=== PATIENT | male | born 1950 | race Caucasian/White ===

== ENCOUNTER → 2019-04-24 09:33 | Outpatient (CLI) | payer MEDICARE, SELFPAY ==
--- NOTE | 2019-04-24 | DI.MRI.S_ITS ---
PROCEDURE: MR HEAD/BRAIN WO/W CON INDICATIONS: POSITIONAL HEADACHES TECHNIQUE: Noncontrast axial T1 spin echo, axial T2 fast spin echo, sagittal and axial FLAIR, coronal T2 fast spin echo, axial gradient echo, axial diffusion and ADC through the brain. After the administration of contrast, axial and coronal 3D VIBE or T1 spin echo with fat saturation through the brain. COMPARISON: None. FINDINGS: Image quality: Mildly degraded by necessity to utilize the body coil rather than head coil for MR brain imaging due to rigidity of the neck. The study is diagnostic. CSF Spaces: Basal cisterns are patent. No extra-axial fluid collections. Ventricles are normal in size and shape. Brain: No midline shift. No intracranial bleeds or masses. No abnormal intracranial enhancement. The brainstem appears normal. Diffusion-weighted images demonstrate no acute ischemic insults. No chronic ischemic insults. Normal intravascular flow voids are present. Skull and face: Calvarial marrow is normal in signal. Orbits appear normal. Sinuses: Sinuses and mastoids appear clear except for mild chronic appearing mucosal thickening involving the right maxillary sinus, without air fluid level.. IMPRESSION: Mild microvascular atherosclerotic change in the deep white matter and hemispheric. No evidence of intracranial hemorrhage or mass, or mass effect. Note is made of mild asymmetric right maxillary sinus mucosal inflammation, without associated air-fluid level. This is in appearance indicative of mild chronic sinusitis. Dictated by: Viraj Thomas M.D. on 04/24/2019 at 11:24 Approved by: Viraj Thomas M.D. on 04/24/2019 at 11:27
== END ==
PROVIDERS: PCP Nurse Practitioner Family; Visit Provider Psychiatry & Neurology Neurology
DX: R51 Headache (principal); J32.0 Chronic maxillary sinusitis
CPT/HCPCS: 70553

== ENCOUNTER → 2019-07-09 09:17 | Outpatient (CLI) | payer MEDICARE, SELFPAY ==
[2019-07-09 09:44] LABS: Add Manual Diff / Slide Review NO; Basophils Absolute Auto 0 /uL (0-100); Basophils Percent Auto 0.6 % (0-2); Eosinophils Absolute Auto 200 /uL (0-450); Eosinophils Percent Auto 5.5 % (2-4); Hematocrit 43.5 % (41-53); Hemoglobin 15.2 g/dL (13.5-17.5); Lymphocytes Absolute Auto 1000 /uL (1100-4500); Lymphocytes Percent Auto 23.1 % (25-40); Mean Corpuscular HGB Conc 34.8 % (30-36); Mean Corpuscular Hemoglobin 33.4 PG (26-34); Mean Corpuscular Volume 95.8 fL (80-100); Monocytes Absolute Auto 600 /uL (0-900); Monocytes Percent Auto 13.6 % (3-14); Neutrophils Absolute Auto 2500 /uL (1500-7000); Neutrophils Percent Auto 57.2 % (50-75); Platelet Count 203 X10^3/uL (150-400); Red Blood Cell Count 4.54 X10^6/uL (4.5-5.9); Red Cell Distribution Width 13.9 % (11.6-14.8); White Blood Cell Count 4.4 X10^3/uL (4.5-11.0)
[2019-07-09 10:06] LABS: Alanine Aminotransferase 27 IU/L (21-72); Albumin Globulin Ratio 1.4 (1.0-2.8); Alkaline Phosphatase 75 U/L (38-126); Aspartate Aminotransferase 33 IU/L (17-59); BUN Creatinine Ratio 21.1 (6-22); Blood Urea Nitrogen 19 mg/dL (9-20); Calcium 9.9 mg/dL (8.4-10.2); Carbon Dioxide 28 mmol/L (22-32); Chloride 103 mmol/L (98-107); Estimated Glomerular Filt Rate > 60.0 mL/min (>60); Globulin 2.8 g/dL (1.7-4.1); Glucose 115 mg/dL (80-110); HEMOLYSIS 22 (0-50); Potassium 4.3 mmol/L (3.4-5.1); Sodium 138 mmol/L (137-145); Total Protein 6.8 g/dL (6.3-8.2)
[2019-07-09 10:36] LABS: Prostate Specific Antigen 3.06 ng/mL (0.10-4.00)
[2019-07-09 10:38] LABS: Testosterone 17.2 ng/dL (71.8-623)
== END ==
PROVIDERS: PCP Nurse Practitioner Family
DX: C61 Malignant neoplasm of prostate (principal)
CPT/HCPCS: 36415; 80053; 84153; 84403; 85025

== ENCOUNTER → 2020-02-04 11:02 | Outpatient (CLI) | payer MEDICARE, SELFPAY ==
[2020-02-04 11:29] LABS: Add Manual Diff / Slide Review NO; Basophils Absolute Auto 0 /uL (0-100); Basophils Percent Auto 0.6 % (0-2); Eosinophils Absolute Auto 300 /uL (0-450); Hematocrit 43.6 % (41-53); Hemoglobin 14.8 g/dL (13.5-17.5); Lymphocytes Absolute Auto 1200 /uL (1100-4500); Mean Corpuscular HGB Conc 33.9 % (30-36); Mean Corpuscular Hemoglobin 32.4 PG (26-34); Mean Corpuscular Volume 95.6 fL (80-100); Monocytes Absolute Auto 900 /uL (0-900); Monocytes Percent Auto 14.4 % (3-14); Neutrophils Absolute Auto 3600 /uL (1500-7000); Platelet Count 237 X10^3/uL (150-400); Red Blood Cell Count 4.56 X10^6/uL (4.5-5.9); Red Cell Distribution Width 13.7 % (11.6-14.8); White Blood Cell Count 5.9 X10^3/uL (4.5-11.0)
[2020-02-04 11:46] LABS: Alanine Aminotransferase 14 IU/L (<50); Albumin 4.1 g/dL (3.5-5.0); Albumin Globulin Ratio 1.2 (1.0-2.8); Alkaline Phosphatase 117 U/L (38-126); Aspartate Aminotransferase 23 IU/L (17-59); Bilirubin Total 0.8 mg/dL (0.2-1.3); Blood Urea Nitrogen 23 mg/dL (9-20); Carbon Dioxide 27 mmol/L (22-32); Chloride 105 mmol/L (98-107); Estimated Glomerular Filt Rate > 60.0 mL/min (>60); Globulin 3.5 g/dL (1.7-4.1); Glucose 107 mg/dL (80-110); HEMOLYSIS < 15 (0-50); Potassium 4.2 mmol/L (3.4-5.1); Sodium 137 mmol/L (137-145); Total Protein 7.6 g/dL (6.3-8.2)
[2020-02-04 12:17] LABS: Prostate Specific Antigen 13.7 ng/mL (0.10-4.00)
[2020-02-04 12:20] LABS: Testosterone 15.9 ng/dL (71.8-623)
== END ==
PROVIDERS: PCP Nurse Practitioner Family; Referring Provider Internal Medicine Hematology & Oncology; Visit Provider Internal Medicine Hematology & Oncology
DX: C61 Malignant neoplasm of prostate (principal)
CPT/HCPCS: 36415; 80053; 84153; 84403; 85025

== ENCOUNTER → 2020-02-08 10:02 | Outpatient (CLI) | payer MEDICARE, SELFPAY ==
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
== END ==
PROVIDERS: PCP Nurse Practitioner Family; Referring Provider Internal Medicine Hematology & Oncology; Visit Provider Internal Medicine Hematology & Oncology
DX: C61 Malignant neoplasm of prostate (principal); C79.51 Secondary malignant neoplasm of bone
CPT/HCPCS: 78306; A9503

== ENCOUNTER → 2020-02-22 11:56 | Outpatient (CLI) | payer MEDICARE, SELFPAY ==
--- NOTE | 2020-02-22 | DI.MRI.S_ITS ---
PROCEDURE: MR CERVICAL SPINE WO/W CON INDICATIONS: Malignant neoplasm of prostate TECHNIQUE: Noncontrast sagittal T1 spin echo and T2 fast spin echo, sagittal STIR, foraminal oblique sagittal T2 fast spin echo, axial gradient echo or T2 fast spin echo through the cervical spine. After the administration of contrast, axial and sagittal T1 spin echo with fat saturation through the cervical spine. COMPARISON: [facility], MR, MR HEAD/BRAIN WO/W CON, 04/24/2019, 9:56. [facility] bone scan torso . FINDINGS: Image quality: This study is limited by the patient's inability to use the standard neck coil. This examination is further limited by involuntary motion artifact. Alignment and curvature: There is normal bony alignment. Marrow: Focal abnormal signal can be seen within the T2 vertebral body, with increased T2-weighted and T1 weighted signal, yet with no increased STIR signal. There is with increased enhancement seen at this level. Spinal cord: Visualized spinal cord has normal size and signal. No cerebellar tonsillar herniation. No abnormal intramedullary enhancement. Paraspinous soft tissues: No paravertebral masses or suspicious enhancement. C2-3: The disc height is well-preserved. Loss of disc signal is seen at this level. A mild degree of generalized disc osteophyte complex is seen. Moderate facet joint hypertrophy is seen. There is moderate left-sided and mild right-sided neural foraminal narrowing seen. No significant central canal narrowing is seen. C3-4: The disc height is well-preserved. Loss of disc signal is seen at this level. Moderate disc osteophyte complex is seen, which is eccentric to the right. There is moderate right-sided and moderate to severe left-sided facet hypertrophy seen. Moderate to severe bilateral neural foraminal narrowing is seen at this level. Mild central canal narrowing is seen. C4-5: Mild to moderate loss of disc height and disc signal can be seen. Moderate disc osteophyte complex is seen, with a central disc osteophyte protrusion. There is moderate right-sided and moderate to severe left-sided facet hypertrophy seen. There is moderate to severe bilateral neural foraminal narrowing seen at this level. Mild to moderate central canal narrowing is seen. C5-6: Mild to moderate loss of disc height and disc signal can be seen. Moderate disc osteophyte complex is seen, which is eccentric to the right. Moderate to severe bilateral neural foraminal narrowing is seen. Mild to moderate central canal narrowing is seen. C6-7: Moderate loss of disc height is seen. Loss of disc signal is seen. Moderate disc osteophyte complex is seen, which is eccentric to the right. There is moderate right-sided and mild to moderate left-sided facet hypertrophy seen. There is moderate to severe bilateral neural foraminal narrowing seen, right worse than left. Mild to moderate central canal narrowing is seen at this level. C7-T1: The disc height is well-preserved. Loss of disc signal is seen at this level. Mild to moderate disc osteophyte complex is seen. Moderate bilateral neural foraminal narrowing is seen. No significant central canal narrowing is seen. IMPRESSION: Multiple levels of cervical spine degenerative change are seen, which are most prominent inferiorly. Several levels of moderate to severe neural foraminal narrowing are seen. No definite abnormal enhancement or abnormal signal can be seen within the bones of the cervical spine. There is a focus of abnormal signal seen within the T2 vertebral body, which may be related to a vertebral body hemangioma. If clinically appropriate, please consider a thoracic spine CT for further evaluation. Dictated by: Rashid Ricci M.D. on 02/22/2020 at 13:08 Approved by: Rashid Ricci M.D. on 02/22/2020 at 13:12
== END ==
PROVIDERS: PCP Nurse Practitioner Family; Referring Provider Internal Medicine Hematology & Oncology; Visit Provider Internal Medicine Hematology & Oncology
DX: C61 Malignant neoplasm of prostate (principal); M47.812 Spondylosis without myelopathy or radiculopathy, cervical region; M48.02 Spinal stenosis, cervical region
CPT/HCPCS: 72156; A9579

== ENCOUNTER 2020-07-29 09:45 | Outpatient (RCR) | payer MEDICARE, SELFPAY ==
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
--- NOTE | 2020-07-23 13:59 | PT.OPPOC ---
Physical, Occupational & Speech Therapy At [facility] Current Diagnoses Malignant neoplasm of prostate (07/23/20) Visit Care Team Role Provider Type Roque High DO Primary Care Provider Physician Specialty: Family Practice Address: [address] [place] [address], [id number] Email: Cecilia Kingsley MD Attending Provider Physician Referring Provider Specialty: Oncology Address: [address] [place] [address], [id number] Email: Plan Of Care PT-OP-T Assessment and Plan Start: 05/27/20 08:57 Freq: Status: Active Protocol: Document 07/23/20 11:54 [facility] (Rec: 07/23/20 12:12 [facility] [id number]) Physical Therapy Assessment Goals Four Impairment tightness of the upper traps, SMC, pec minor contributing to cervical pain Mcc Goal (LTG) Patrice is educated in a home stretching program to address the tightness and imbalances in his neck. EXCELLENT PROGRESS, Patrice is working on a foam roller for opening up his chest and is doing a self suboccipital release as well as cervical neck stretches Three Impairment Decreased cervical spine ROM Short Term Goal (STG) Improve cervical spine ROM for both sidebending and rotation SLOWLY IMPROVING BUT STILL LIMITED WITH CERVICAL ROTATION AND SIDEBEND. DRIVING IS GETTING EASIER TO TURN AND LOOK WHEN DRIVING Internal Medicine Doctor Goal (LTG) Patrice no longer has pain with cervical spine sidebending and ROM SOME PROGRESS Two Impairment suboccipital tightness and shortening of the upper cervical spine muscles Short Term Goal (STG) Patrice is educated in self suboccipital release for home to help improve length of the suboccipital muscles GOAL MET One Impairment Neck pain rated 2/10 and frequent headaches brought on by activity Short Term Goal (STG) Patrice is educated about postural positions that can take pressure off his neck to reduce c/o headaches GOAL MET Internal Medicine Doctor Goal (LTG) Patrice reports a overall reduction is both cervical spine pain and headaches EXCELLENT PROGRESS Progress Towards Goals Progress Towards Goals Progressing Toward Goals Progress Comments Good progress towards goals and Patrice is no longer experiencing headaches Assessment Summary Assessment pt made adjustments to his bike and it has made a big difference for him. He is no longer experiencing the headaches. He is still tight with cervical rotation and side bending and I worked on this today with manual therapy treatments Physical Therapy Plan Frequency and Duration Frequency of Treatment 2x/Week Duration of Treatment 8 Plan of Care Start Date 07/23/20 Plan of Care End Date 09/16/20 Plan of Care Dates Plan of Care Start Date 07/23/20 Plan of Care End Date 09/16/20 Electronically Signed by: Malinda Murillo, PT 07/23/20 [id number] Please Sign and Return: I have reviewed this Plan of Care and certify that the skilled therapy services above are required to meet the patient?s needs. Physician Signature Date Printed Name and Credentials Clinical Instructor Signature Printed Name and Credentials
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
== END 2020-08-11 12:35 | disposition home or self-care (01) ==
LOC: PHYS 09:45
PROVIDERS: PCP Family Medicine; Referring Provider Internal Medicine Hematology & Oncology; Visit Provider Internal Medicine Hematology & Oncology
DX: C61 Malignant neoplasm of prostate (principal)
CPT/HCPCS: 97110; 97140; 97161

== ENCOUNTER → 2021-02-12 09:05 | Outpatient (CLI) | payer MEDICARE, SELFPAY ==
--- NOTE | 2021-02-12 09:06 | DI.CT.S_ITS ---
PROCEDURE: CT CHEST ABD PEL W CON INDICATIONS: prostate cancer TECHNIQUE: After the administration of oral and intravenous contrast, 5 mm thick sections acquired from the lung apices to the symphysis. 5 mm coronal and sagittal reformats were performed, with additional 7 mm coronal MIP reformats through the lungs. For radiation dose reduction, the following was used: automated exposure control, adjustment of mA and/or kV according to patient size. COMPARISON: None. FINDINGS: Image quality: Excellent. CHEST: Lungs and pleura: Mild diffuse emphysematous changes. There is a juxta fissural nodule at the apex of the right major fissure. Subpleural fibrotic changes are present laterally in the right mid and lower lung. Bibasilar posterior stranding, scarring versus atelectasis. There is scarring in the right lateral costophrenic sulcus. No acute airspace opacities. No pleural effusions or pneumothorax. There are several right middle lobe peripheral airways that demonstrate short segment occlusions. Other peripheral airways are patent. Central airways appear patent and normal in caliber. Mediastinum: Heart size is normal. No pericardial effusion. No mediastinal or hilar adenopathy by size criteria. Thoracic aorta and central pulmonary arteries are normal in size. Esophagus demonstrates circumferential wall thickening throughout the mid and distal portion. No hiatal hernia. Chest wall: No axillary or supraclavicular adenopathy by size criteria. Thyroid gland is unremarkable . ABDOMEN: Solid organs: Liver is normal in size and enhancement. Gallbladder is decompressed . Biliary system is non dilated. Pancreas enhances normally. Spleen is normal in size and enhancement. No adrenal nodules. Kidneys demonstrate normal size and enhancement, without hydronephrosis. There is a heterogeneous exophytic mass arising along the lateral lower pole of the right kidney measuring 2.6 x 1.5 x 2.4 cm. It demonstrates areas of intrinsic macroscopic fat. Along the posterior aspect of the right midpole cortex, there is another predominantly fatty exophytic mass arising from the right kidney measuring 2.0 cm. Peritoneum and bowel: Bowel loops demonstrate normal wall thickness and caliber. No free fluid or air. Nodes and vessels: Shotty periaortic retroperitoneal lymph nodes are present. No retroperitoneal or mesenteric adenopathy by size criteria. Aorta is tortuous and demonstrates mild atherosclerotic calcification. Inferior vena cava is normal. Miscellaneous: No ventral hernias. Possible left mid abdominal injection granuloma in the subcutaneous anterior abdominal wall PELVIS: Genitourinary: Bladder wall thickness is normal. The prostate gland is absent. Miscellaneous: Thin flat bilateral external iliac lymph nodes, up to 7 mm in short axis. 8 mm left inguinal lymph node. 9 mm high left external iliac node. 7 mm lymph node posterior to the left common iliac artery.. Bones: Numerous minimally sclerotic lesions throughout the osseous structures. This includes the visible portions of the upper and lower extremities, scapula, sternum, spine and pelvic bones. There is a probable osteoporotic compression fracture in the superior endplate centrally of L4, to a lesser extent L3, and anterior wedge compression fractures of T5 and to a lesser extent T7.. IMPRESSION: 1. Extensive osseous metastatic disease. 2. Borderline adenopathy in the pelvis and proximal to the common iliac chain. 3. Emphysema, bibasilar, and right lateral lower lung scarring a and early fibrotic change. 4. Several small airways occlusions in the right middle lobe, potentially mucous plugging. 5. Diffuse mid and distal esophageal wall thickening. Consider esophagitis. 6. 2 exophytic lesions arising from the right kidney containing macroscopic fat suggesting angiomyolipomas. Follow-up in 6-12 months is recommended to assess for growth. 7. Osteoporotic and anterior compression fractures in thoracic and lumbar spine as described. Dictated by: Haleigh Rai M.D. on 02/12/2021 at 11:00 Approved by: Haleigh Rai M.D. on 02/12/2021 at 12:13
--- NOTE | 2021-02-12 09:06 | DI.NM.S_ITS ---
PROCEDURE: [place] BONE SCAN WHOLE BODY RADIOPHARMACEUTICAL: 19.5 mCi Tc-99m MDP IV. INDICATIONS: prostate cancer TECHNIQUE: Delayed whole-body scintigrams were obtained approximately 3-4 hours after intravenous injection of radiotracer. Anterior and posterior views were acquired from vertex to feet. COMPARISON: [facility], CT, CT CHEST ABD PEL W CON, 02/12/2021, 9:59. [facility], [place], [place] BONE SCAN WHOLE BODY, 02/08/2020, 13:16. FINDINGS: There are widespread appendicular and axial skeletal tracer uptake in keeping with osseous metastases, which have progressed since the prior study dated 02/08/20, for example within the left humerus , there are multiple areas of tracer activity which appear new. Punctate foci of tracer uptake involving the mid right humeral diaphysis is new. There is also increasing bilateral rib tracer activity. Areas of increased tracer activity involving the bony pelvis including the right and left sacral ala, bilateral pubic rami which are new or more conspicuous since the prior study. Previous right femur intertrochanteric uptake is increased. Right calvarial tracer activity is grossly unchanged. 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 IMPRESSION: Widespread osseous metastases, with interval progression since 02/08/20. Dictated by: Dylan Talavera M.D. on 02/12/2021 at 13:04 Approved by: Dylan Talavera M.D. on 02/12/2021 at 13:11
== END ==
PROVIDERS: PCP Family Medicine; Referring Provider Internal Medicine Hematology & Oncology; Visit Provider Internal Medicine Hematology & Oncology
DX: C61 Malignant neoplasm of prostate (principal); C79.51 Secondary malignant neoplasm of bone; J43.9 Emphysema, unspecified; N28.9 Disorder of kidney and ureter, unspecified; M80.08XA Age-related osteoporosis with current pathological fracture, vertebra(e), initial encounter for fracture
CPT/HCPCS: 71260; 74177; 78306; A9503; Q9967

== ENCOUNTER → 2021-04-03 10:07 | Outpatient (CLI) | payer MEDICARE, SELFPAY ==
[2021-04-03 12:34] LABS: Alanine Aminotransferase 21 IU/L (<50); Albumin 3.6 g/dL (3.5-5.0); Albumin Globulin Ratio 1.3 (1.0-2.8); Alkaline Phosphatase 192 U/L (38-126); Aspartate Aminotransferase 28 IU/L (17-59); BUN Creatinine Ratio 29.2 (6-22); Bilirubin Total 1.2 mg/dL (0.2-1.3); Blood Urea Nitrogen 26 mg/dL (9-20); Calcium 9.3 mg/dL (8.4-10.2); Carbon Dioxide 23 mmol/L (22-32); Chloride 107 mmol/L (98-107); Estimated Glomerular Filt Rate > 60.0 mL/min (>60); Globulin 2.7 g/dL (1.7-4.1); Glucose 117 mg/dL (80-110); HEMOLYSIS < 15 (0-50); Sodium 137 mmol/L (137-145); Total Protein 6.3 g/dL (6.3-8.2)
== END ==
PROVIDERS: PCP Family Medicine; Referring Provider Internal Medicine Medical Oncology; Visit Provider Internal Medicine Medical Oncology
DX: C61 Malignant neoplasm of prostate (principal)
CPT/HCPCS: 36415; 80053

== ENCOUNTER → 2021-05-01 09:06 | Outpatient (CLI) | payer MEDICARE, SELFPAY ==
[2021-05-01 10:35] LABS: Alanine Aminotransferase 23 IU/L (<50); Albumin 3.7 g/dL (3.5-5.0); Albumin Globulin Ratio 1.3 (1.0-2.8); Alkaline Phosphatase 245 U/L (38-126); Aspartate Aminotransferase 30 IU/L (17-59); BUN Creatinine Ratio 25.3 (6-22); Bilirubin Total 1.7 mg/dL (0.2-1.3); Blood Urea Nitrogen 23 mg/dL (9-20); Calcium 9.6 mg/dL (8.4-10.2); Carbon Dioxide 29 mmol/L (22-32); Chloride 104 mmol/L (98-107); Estimated Glomerular Filt Rate > 60.0 mL/min (>60); Globulin 2.8 g/dL (1.7-4.1); Glucose 74 mg/dL (80-110); HEMOLYSIS < 15 (0-50); Potassium 3.7 mmol/L (3.4-5.1); Sodium 138 mmol/L (137-145); Total Protein 6.5 g/dL (6.3-8.2)
== END ==
PROVIDERS: PCP Family Medicine; Referring Provider Internal Medicine Medical Oncology; Visit Provider Internal Medicine Medical Oncology
DX: C61 Malignant neoplasm of prostate (principal)
CPT/HCPCS: 36415; 80053

== ENCOUNTER → 2021-05-15 10:28 | Outpatient (CLI) | payer MEDICARE, SELFPAY ==
[2021-05-15 12:03] LABS: Alanine Aminotransferase 21 IU/L (<50); Albumin 3.6 g/dL (3.5-5.0); Albumin Globulin Ratio 1.2 (1.0-2.8); Alkaline Phosphatase 241 U/L (38-126); Aspartate Aminotransferase 26 IU/L (17-59); BUN Creatinine Ratio 31.1 (6-22); Bilirubin Total 1.2 mg/dL (0.2-1.3); Blood Urea Nitrogen 28 mg/dL (9-20); Calcium 9.2 mg/dL (8.4-10.2); Carbon Dioxide 27 mmol/L (22-32); Chloride 106 mmol/L (98-107); Estimated Glomerular Filt Rate > 60.0 mL/min (>60); Glucose 106 mg/dL (80-110); HEMOLYSIS < 15 (0-50); Potassium 3.7 mmol/L (3.4-5.1); Sodium 137 mmol/L (137-145); Total Protein 6.6 g/dL (6.3-8.2)
== END ==
PROVIDERS: PCP Family Medicine; Referring Provider Internal Medicine Medical Oncology; Visit Provider Internal Medicine Medical Oncology
DX: C61 Malignant neoplasm of prostate (principal)
CPT/HCPCS: 36415; 80053

== ENCOUNTER → 2021-06-15 15:32 | Outpatient (CLI) | payer MEDICARE, SELFPAY ==
[2021-06-15 17:06] LABS: Alanine Aminotransferase 25 IU/L (<50); Albumin 3.7 g/dL (3.5-5.0); Albumin Globulin Ratio 1.2 (1.0-2.8); Alkaline Phosphatase 225 U/L (38-126); Aspartate Aminotransferase 30 IU/L (17-59); BUN Creatinine Ratio 30.6 (6-22); Bilirubin Total 0.8 mg/dL (0.2-1.3); Blood Urea Nitrogen 26 mg/dL (9-20); Calcium 9.7 mg/dL (8.4-10.2); Carbon Dioxide 28 mmol/L (22-32); Chloride 105 mmol/L (98-107); Estimated Glomerular Filt Rate > 60.0 mL/min (>60); Glucose 112 mg/dL (80-110); HEMOLYSIS < 15 (0-50); Potassium 4.3 mmol/L (3.4-5.1); Sodium 137 mmol/L (137-145); Total Protein 6.7 g/dL (6.3-8.2)
== END ==
PROVIDERS: PCP Family Medicine; Referring Provider Internal Medicine Medical Oncology; Visit Provider Internal Medicine Medical Oncology
DX: C61 Malignant neoplasm of prostate (principal)
CPT/HCPCS: 36415; 80053

== ENCOUNTER → 2021-06-15 15:55 | Outpatient (CLI) | payer MEDICARE, SELFPAY ==
--- NOTE | 2021-06-15 15:57 | DI.RAD.S_ITS ---
PROCEDURE: XR LUMBAR SPINE 2-3V INDICATIONS: pain TECHNIQUE: 3 views of the lumbar spine were acquired. COMPARISON: None. FINDINGS: Bones: 5 [id number] vertebrae are present. There is mild rightward curvature of upper lumbar spine centered at L1-2 level . Moderate to severe degenerative endplate changes and bilateral facet arthrosis throughout lumbar spine is seen more prominent at L4-5 and L5-S1 levels. No vertebral body compression fractures. No suspicious bony lesions. Soft tissues: Overlying bowel gas pattern is normal. No suspicious soft tissue calcifications. IMPRESSION: Moderate to severe degenerative disc disease throughout lumbar spine more prominent at L4-5 and L5-S1 levels. No acute compression fracture or significant spondylolisthesis. Mild scoliosis as above. Dictated by: Thomas Aawn M.D. on 06/15/2021 at 16:23 Approved by: Thomas Awan M.D. on 06/15/2021 at 16:25
== END ==
PROVIDERS: PCP Family Medicine; Referring Provider Family Medicine; Visit Provider Family Medicine
DX: M54.5 Low back pain (principal); G89.29 Other chronic pain; C61 Malignant neoplasm of prostate; C79.51 Secondary malignant neoplasm of bone; M51.36 Other intervertebral disc degeneration, lumbar region; M51.37 Other intervertebral disc degeneration, lumbosacral region; M41.9 Scoliosis, unspecified
CPT/HCPCS: 36415; 72100; 80053

== ENCOUNTER → 2021-07-01 09:34 | Outpatient (CLI) | payer MEDICARE, SELFPAY | PROVIDERS: PCP Family Medicine; Visit Provider Family Medicine | DX: S81.801A Unspecified open wound, right lower leg, initial encounter (principal) | CPT/HCPCS: 87070; 87077; 87186; 87205 ==

== ENCOUNTER 2021-07-23 12:48 | Emergency (ER) | payer MEDICARE, SELFPAY ==
[2021-07-23 12:55] VITALS: BP 138/67; PULSE 96; RESP 15; TEMP 37.3; O2SAT 96; BMI 24.4
--- NOTE | 2021-07-23 13:03 | ED.EXTPRO ---
HPI - Extremity Problem <Francisco Corbin PA-C - Last Filed: 07/23/21 16:05> General Chief complaint: Extremity Problem,Nontraumatic Stated complaint: Possible DVT right leg Time Seen by Provider: 07/23/21 12:54 Source: patient Mode of arrival: Ambulatory Limitations: no limitations History of Present Illness HPI Narrative: Patrice presents today with chief complaint of right leg pain that started last night while he was laying down. He reports that his symptoms have improved in late morning today but he still wants to get checked out. He has previous history of venous thromboembolism and reports that this did not feel quite the same. He denies any significant swelling, rash, difficulty walking, decreased range of motion, abdominal pain, cough, shortness of breath or any other acute concerns or complaints at this time. Related Data Home Medications Medication Instructions Recorded Confirmed epinephrine 0.3 mg/0.3 mL 0.3 mg PRN PRN 08/21/19 07/01/21 injection, auto-injector (EpiPen) abiraterone 500 mg tablet 1,000 mg PO DAILY 06/15/21 07/01/21 prednisone 10 mg tablet 10 mg PO DAILY 06/15/21 07/01/21 Previous Rx's Medication Instructions Recorded lidocaine 5 % topical patch 1 patch TOPICAL DAILY #15 ea 06/15/21 oxycodone 10 mg tablet 10 mg PO TID PRN #90 tab 06/15/21 warfarin 2 mg tablet 2 mg PO DAILY #90 tab 06/15/21 warfarin 5 mg tablet 5 mg PO QDAY #90 tab 06/15/21 doxycycline hyclate 100 mg capsule 100 mg PO BID #20 cap 07/01/21 Allergies Allergy/AdvReac Type Severity Reaction Status Date / Time bee venom protein (honey bee) Allergy Unknown Verified 07/23/21 12:58 Review of Systems <Francisco Corbin PA-C - Last Filed: 07/23/21 16:05> Review of Systems Narrative: As per HPI Patient History <Francisco Corbin PA-C - Last Filed: 07/23/21 16:05> Medical History (Updated 07/23/21 @ 14:42 by Francisco Corbin PA-C) Back stiffness Cellulitis Cervical somatic dysfunction Leg wound, left Neck pain Neoplasm of prostate as incidental histologic finding in more than 5% of resected tissue (T1b) Pelvic somatic dysfunction Physician orders for life-sustaining treatment (POLST) form indicates patient wish for wl-ohq-cuoymfwerou status Prostate cancer metastatic to bone Sacral region somatic dysfunction Warfarin anticoagulation Surgical History History of orthopedic surgery History of total knee arthroplasty Social History Smoking Status: Never smoker alcohol intake: current substance use type: does not use Smoking Status: Never smoker alcohol intake frequency: 0-2 drinks per day Substance Use Type: does not use Exam <Francisco Corbin PA-C - Last Filed: 07/23/21 16:05> Narrative Exam Narrative: Exam Narrative: Const General: cooperative, healthy appearing, comfortable, no acute distress, well developed and well groomed Nutritional Appearance: average body habitus Orientation: alert and oriented x3 HENMT Head: normal to inspection and atraumatic Ears: hearing grossly normal bilaterally Nose: external nose normal and nares normal Face and sinus: normal facial exam Neck Neck: normal visual inspection and supple Resp Effort & Inspection: normal respiratory effort, able to speak in complete sentences, no audible wheezes, not labored, no nasal flaring and no respiratory distress Neuro General: alert, oriented x3, gait normal, tone normal and moves all extremities Cognition: normal cognition Speech: speech normal Gait: normal gait Extremities Lower extremities exposed. Grossly normal in appearance. No obvious edema, swelling or ecchymoses. No significant soft tissue tenderness to the touch. Small superficial skin ulceration to medial right lower leg. No significant surrounding erythema, edema or underlying fluctuance noted. Psych Appearance: grossly normal and well kempt Mental Status: mental status grossly normal Speech and Movement: speech and movement normal Mood: congruent mood Affect: normal affect Initial Vital Signs Initial Vital Signs: Vital Signs Temperature 99.1 F 07/23/21 12:55 Pulse Rate 96 H 07/23/21 12:55 Respiratory Rate 15 07/23/21 12:55 Blood Pressure 138/67 07/23/21 12:55 Pulse Oximetry 96 07/23/21 12:55 <Kendall Mortensen DO - Last Filed: 07/24/21 10:58> Initial Vital Signs Initial Vital Signs: Vital Signs Temperature 99.1 F 07/23/21 12:55 Pulse Rate 96 H 07/23/21 12:55 Respiratory Rate 15 07/23/21 12:55 Blood Pressure 138/67 07/23/21 12:55 Pulse Oximetry 96 07/23/21 12:55 Course <Francisco Corbin PA-C - Last Filed: 07/23/21 16:05> Orders Ordered: ED Orders 07/23/21 13:29 US periph venous low extrem rt Stat 07/23/21 13:31 Prothrombin Time INR Stat Vital Signs Vital signs: Vital Signs - 8 hr 07/23/21 12:55 07/23/21 14:50 Temperature 99.1 F Pulse Rate 96 H 82 Respiratory Rate 15 18 Blood Pressure 138/67 120/68 Pulse Oximetry 96 97 <Kendall Mortensen DO - Last Filed: 07/24/21 10:58> Orders Ordered: ED Orders 07/23/21 13:29 US periph venous low extrem rt Stat 07/23/21 13:31 Prothrombin Time INR Stat Vital Signs Vital signs: Vital Signs - 8 hr 07/23/21 12:55 07/23/21 14:50 Temperature 99.1 F Pulse Rate 96 H 82 Respiratory Rate 15 18 Blood Pressure 138/67 120/68 Pulse Oximetry 96 97 MDM - Extremity (Nontraumatic) <Francisco Corbin PA-C - Last Filed: 07/23/21 16:05> Lab Data Labs: Lab Results 07/23/21 Range/Units 13:31 PT 26.5 H (10.1-12.7) SECONDS INR 2.3 H (0.9-1.3) MDM Narrative Medical decision making narrative: Patient is well-appearing at this time and his symptoms have resolved. He does not have any physical examination evidence to suggest infection or DVT. I considered muscular strain or neuropathy but because his symptoms are gone and nothing that I do reproduce his them it is difficult to ascertain that at this time. He denies any chest pain or shortness of breath. Without any other evidence of does not think that imaging the lungs is necessary at this time. He is therapeutic on his warfarin. ER return precautions were discussed with the patient. Patient verbalizes understanding and agrees to plan and has no further concerns at this time. Thank you A [id number] system was used with the dictation of this note. Please disregard any spelling or grammatical errors. <Kendall Mortensen DO - Last Filed: 07/24/21 10:58> Lab Data Labs: Lab Results 07/23/21 Range/Units 13:31 PT 26.5 H (10.1-12.7) SECONDS INR 2.3 H (0.9-1.3) Discharge Plan Departure Patient Disposition: Home Clinical Impression: Acute pain of right lower extremity Activity Restrictions/Additional Instructions: It was very nice to meet you with this afternoon. I am glad your symptoms have improved. Your evaluation today has been reassuring overall. Please follow-up with your primary care provider. If you develop worsening pain, rash, fever, abdominal pain, or any other acute concerns or complaints tonight has states return for re-evaluation. Thank you Francisco Corbin PA-C Prescriptions: No Action abiraterone 500 mg tablet 1,000 mg PO DAILY RF: 0 prednisone 10 mg tablet 10 mg PO DAILY RF: 0 warfarin 2 mg tablet 2 mg PO DAILY Qty: 90 RF: 1 warfarin 5 mg tablet 5 mg PO QDAY Qty: 90 RF: 1 oxycodone 10 mg tablet 10 mg PO TID PRN (Reason: pain) Qty: 90 RF: 0 lidocaine 5 % adhesive patch,medicated 1 patch topical DAILY Qty: 15 RF: 0 doxycycline hyclate 100 mg capsule 100 mg PO BID Qty: 20 RF: 0 epinephrine [EpiPen] 0.3 mg/0.3 mL Auto-Injector 0.3 mg PRN PRN (Reason: Allergic Reaction) RF: 0 Referrals: Roque High DO [Primary Care Provider] - <Kendall Mortensen DO - Last Filed: 07/24/21 10:58> Cosign ED Attending Cosignature Attestation: I was immediately available in the department for consultation. This documentation has been reviewed and I agree with assessment and plan. Supervised by Kendall Mortensen DO
--- NOTE | 2021-07-23 13:29 | DI.US.S_ITS ---
PROCEDURE: [place] PERIPH VENOUS LOW EXTREM RT INDICATIONS: R/O DVT TECHNIQUE: Real-time imaging, as well as color and pulse Doppler interrogation, were performed of the lower extremity deep veins from the inguinal ligament to the popliteal fossa. COMPARISON: None. FINDINGS: The common femoral, femoral and popliteal veins are normally compressible, and free of intraluminal thrombus. Color and pulse Doppler demonstrate normal phasic intraluminal flow. There is normal augmentation response to distal compression maneuver. Superficial varicosities are noted with small areas of thrombus. IMPRESSION: 1. No deep venous thrombosis. 2. Superficial varicosities suggestive of thrombophlebitis. Dictated by: Gemma Bhatti M.D. on 07/23/2021 at 14:06 Approved by: Gemma Bhatti M.D. on 07/23/2021 at 14:07
[2021-07-23 13:47] LABS: INR 2.3 (0.9-1.3); Prothrombin Time 26.5 SECONDS (10.1-12.7)
[2021-07-23 14:50] VITALS: BP 120/68; PULSE 82; RESP 18; O2SAT 97
== END 2021-07-23 15:04 | disposition home or self-care (01) ==
PROVIDERS: Emergency Provider Physician Assistant; Family Provider Family Medicine; PCP Family Medicine
DX: M79.604 Pain in right leg (principal)
CPT/HCPCS: 36415; 85610; 93971; 99283

== ENCOUNTER 2021-08-21 10:08 | Emergency (ER) | payer MEDICARE, SELFPAY ==
[2021-08-21 10:14] VITALS: BP 157/96; PULSE 60; RESP 14; TEMP 36.4; O2SAT 98
[2021-08-21 10:56] LABS: COVID19 -Nasal RAPID Negative (Negative)
--- NOTE | 2021-08-21 18:31 | ED.RECABL ---
HPI - Recheck/Abnormal Lab/Rx <EMERY Carter - Last Filed: 08/21/21 18:38> General Chief Complaint: Recheck/Abnormal Lab/Rx Stated Complaint: wants covid test Time Seen by Provider: 08/21/21 12:34 Source: patient Mode of arrival: Ambulatory Limitations: no limitations History of Present Illness Description of abnormal result: 70-year-old male presents to the emergency department today for COVID testing with known exposure from a grandchild who tested positive for COVID 5 days ago. Patient denies any symptoms, reports there is a lack of testing centers [place] for those who do not have symptoms and he is frustrated by this. He tried to go to the walk-in clinic this morning to get tested but he did not have symptoms and he was denied. Related Data Home Medications Medication Instructions Recorded Confirmed epinephrine 0.3 mg/0.3 mL 0.3 mg PRN PRN 08/21/19 07/01/21 injection, auto-injector (EpiPen) abiraterone 500 mg tablet 1,000 mg PO DAILY 06/15/21 07/01/21 prednisone 10 mg tablet 10 mg PO DAILY 06/15/21 07/01/21 Previous Rx's Medication Instructions Recorded lidocaine 5 % topical patch 1 patch TOPICAL DAILY #15 ea 06/15/21 oxycodone 10 mg tablet 10 mg PO TID PRN #90 tab 06/15/21 warfarin 2 mg tablet 2 mg PO DAILY #90 tab 06/15/21 warfarin 5 mg tablet 5 mg PO QDAY #90 tab 06/15/21 doxycycline hyclate 100 mg capsule 100 mg PO BID #20 cap 07/01/21 Allergies Allergy/AdvReac Type Severity Reaction Status Date / Time bee venom protein (honey bee) Allergy Unknown Verified 08/21/21 10:24 Review of Systems <EMERY Carter - Last Filed: 08/21/21 18:38> Review of Systems Narrative: General: denies fever, chills Head/Neck: denies headache, neck pain Eyes: denies visual changes, eye pain Cardio: denies chest pain, palpitations Respiratory: denies shortness of breath, cough GI: denies abdominal pain, nausea, vomiting, or diarrhea : denies dysuria, hematuria MSK: denies joint pain, muscle weakness Skin: denies rash, itching Neuro: denies numbness, tingling Patient History <EMERY Carter - Last Filed: 08/21/21 18:38> Medical History Back stiffness Cellulitis Cervical somatic dysfunction Leg wound, left Neck pain Neoplasm of prostate as incidental histologic finding in more than 5% of resected tissue (T1b) Pelvic somatic dysfunction Physician orders for life-sustaining treatment (POLST) form indicates patient wish for gf-erm-owfaytlfsfe status Prostate cancer metastatic to bone Sacral region somatic dysfunction Warfarin anticoagulation Surgical History History of orthopedic surgery History of total knee arthroplasty Social History Smoking Status: Never smoker alcohol intake: current substance use type: does not use Smoking Status: Never smoker alcohol intake frequency: 0-2 drinks per day Substance Use Type: does not use Exam <EMERY Carter - Last Filed: 08/21/21 18:38> Narrative Exam Narrative: Independently reviewed vitals signs and nursing notes. General: Awake, alert, nontoxic, no cardiorespiratory distress Head/Neck: Atraumatic, neck full range of motion Eyes: EOMI, conjunctiva normal Nose: nares patent, no rhinorrhea Mouth/Throat: moist mucus membranes Cardio: Regular rate and rhythm, no peripheral edema Respiratory: respirations unlabored without wheezing, stridor, or rales. No retractions. GI: Abdomen non-distended MSK: Moves all extremities, neurovascularly intact Skin: Normal capillary refill, no rash Neuro: Normal speech and cognition, normal gait Initial Vital Signs Initial Vital Signs: Vital Signs Temperature 97.6 F 08/21/21 10:14 Pulse Rate 60 08/21/21 10:14 Respiratory Rate 14 08/21/21 10:14 Blood Pressure 157/96 H 08/21/21 10:14 Pulse Oximetry 98 08/21/21 10:14 <Markel Freeman MD - Last Filed: 08/22/21 07:17> Initial Vital Signs Initial Vital Signs: Vital Signs Temperature 97.6 F 08/21/21 10:14 Pulse Rate 60 08/21/21 10:14 Respiratory Rate 14 08/21/21 10:14 Blood Pressure 157/96 H 08/21/21 10:14 Pulse Oximetry 98 08/21/21 10:14 Course <EMERY Carter - Last Filed: 08/21/21 18:38> Orders Ordered: ED Orders 08/21/21 10:18 COVID19 -Nasal swab/Pre-Proc Stat <Markel Freeman MD - Last Filed: 08/22/21 07:17> Orders Ordered: ED Orders 08/21/21 10:18 COVID19 -Nasal swab/Pre-Proc Stat MDM - Recheck/Abnormal Lab/Rx <EMERY Carter - Last Filed: 08/21/21 18:38> Lab Data Labs: Lab Results 08/21/21 Range/Units 10:18 SARS-CoV-2 (PCR) Negative (Negative) MDM Narrative Medical decision making narrative: Patient is a 70-year-old male who presents to the emergency department today for COVID testing with a known exposure to COVID 5 days ago. His COVID test today was negative. Patient is frustrated about the lack of COVID testing available to those in this community who do not have symptoms. He states he is trying to do right by his community and get tested with a known exposure and it became a very difficult situation any had a long emergency department wait and would like this to change if possible. I shared the quality improvement directors name and phone number and he will be in contact regarding this. Patient is appropriate and amenable to discharge home. Vital signs are stable on repeat examination is unremarkable. Patient has been informed of results. Patient has been given strict return to ER precautions for any new or worsening symptoms. Patient understands to follow up closely with outpatient providers as instructed. Patient understands plan and agrees to discharge home. All questions and concerns answered at this time. <Markel Freeman MD - Last Filed: 08/22/21 07:17> Lab Data Labs: Lab Results 08/21/21 Range/Units 10:18 SARS-CoV-2 (PCR) Negative (Negative) Discharge Plan Departure Patient Disposition: Home Clinical Impression: Lab test negative for COVID-19 virus Activity Restrictions/Additional Instructions: *You have been diagnosed with a negative COVID PCR test today. Thank you for coming in and being tested at of [facility]. Please follow-up with Jerrica Madison, she is the director of parks and recreation. [phone] *What to do: *Please continue to take your regular medications as directed. [ ] New medication prescriptions sent to your pharmacy: [ ] [ ] New medication written as a paper prescription [ x] No new medications given *Please follow up with your primary care provider in 2-3 days, call for an appointment. Let them know you were seen in the Emergency Department and that we ask that you be seen in follow up. We will electronically transmit a record of today's note if your PCP is in our system *If you do not have a primary care provider please contact the [facility] Resource line at [phone]. They will ask some questions about your medical history and help get you set up with a doctor in the community. *Return to Emergency Department if you should have any new, worsening or concerning symptoms, such as [fever greater than 101F, chills, worsening pain, persistent vomiting or other bothersome symptoms] Prescriptions: No Action abiraterone 500 mg tablet 1,000 mg PO DAILY RF: 0 prednisone 10 mg tablet 10 mg PO DAILY RF: 0 warfarin 2 mg tablet 2 mg PO DAILY Qty: 90 RF: 1 warfarin 5 mg tablet 5 mg PO QDAY Qty: 90 RF: 1 oxycodone 10 mg tablet 10 mg PO TID PRN (Reason: pain) Qty: 90 RF: 0 lidocaine 5 % adhesive patch,medicated 1 patch topical DAILY Qty: 15 RF: 0 doxycycline hyclate 100 mg capsule 100 mg PO BID Qty: 20 RF: 0 epinephrine [EpiPen] 0.3 mg/0.3 mL Auto-Injector 0.3 mg PRN PRN (Reason: Allergic Reaction) RF: 0 Referrals: Roque High DO [Primary Care Provider] -
== END 2021-08-21 13:00 | disposition home or self-care (01) ==
PROVIDERS: Emergency Medicine; Emergency Provider Nurse Practitioner Critical Care Medicine; Family Provider Family Medicine; PCP Family Medicine
DX: Z20.822 Contact with and (suspected) exposure to COVID-19 (principal)
CPT/HCPCS: 87635; 99281; C9803

== ENCOUNTER → 2022-06-01 08:41 | Outpatient (CLI) | payer MEDICARE, SELFPAY ==
[2022-06-01 10:41] LABS: Alanine Aminotransferase 19 IU/L (<50); Albumin 3.7 g/dL (3.5-5.0); Albumin Globulin Ratio 1.3 (1.0-2.8); Alkaline Phosphatase 92 U/L (38-126); Aspartate Aminotransferase 25 IU/L (17-59); BUN Creatinine Ratio 22.3 (6-22); Bilirubin Total 1.2 mg/dL (0.2-1.3); Blood Urea Nitrogen 23 mg/dL (9-20); Calcium 9.8 mg/dL (8.4-10.2); Carbon Dioxide 30 mmol/L (22-32); Chloride 103 mmol/L (98-107); Estimated Glomerular Filt Rate > 60 mL/min (>60); Globulin 2.8 g/dL (1.7-4.1); Glucose 99 mg/dL (80-110); HEMOLYSIS < 15 (0-50); Potassium 3.6 mmol/L (3.4-5.1); Sodium 138 mmol/L (137-145); Total Protein 6.5 g/dL (6.3-8.2)
== END ==
PROVIDERS: Family Provider Family Medicine; PCP Family Medicine; Referring Provider Physician Assistant; Visit Provider Physician Assistant
DX: C61 Malignant neoplasm of prostate (principal)
CPT/HCPCS: 36415; 80053

== ENCOUNTER → 2022-08-18 12:33 | Outpatient (CLI) | payer MEDICARE, SELFPAY ==
--- NOTE | 2022-08-18 | DI.CT.S_ITS ---
PROCEDURE: CT CHEST ABD PEL W CON INDICATIONS: Malignant neoplasm of prostate TECHNIQUE: After the administration of oral and intravenous contrast, axial sections acquired from the supraclavicular neck to the pubic symphysis. Coronal and sagittal reformats were performed. For radiation dose reduction, the following was used: automated exposure control, adjustment of mA and/or kV according to patient size. COMPARISON: [facility], CT, CT CHEST ABD PEL W CON, 02/12/2021, 9:59. FINDINGS: Image quality: Excellent. CHEST: Lower Neck: No adenopathy. Thyroid: Normal. Axillae: No adenopathy. Chest Wall: No soft tissue lesions. Lungs and Airways: AP enlargement of the chest. Central and peripheral airways are mostly patent, however there is mucous plugging in the distal right middle lobe airways. Dependent ground-glass opacities are present posteriorly in the lung bases. No suspicious nodules or consolidations. Pleura: No pneumothorax or pleural effusions. Heart: Heart size is normal. No pericardial effusion. Thoracic Vessels: The aorta and pulmonary arteries demonstrate normal size. Mediastinum and Brooke: No enlarged lymph nodes. Esophagus: Mid and distal esophagus demonstrates chronic circumferential wall thickening. No hiatal hernia. ABDOMEN: Liver: No masses. Gallbladder: Partially decompressed and appears normal. Biliary ducts: Nondilated. Pancreas: Stable with chronic mild pancreatic ductal prominence. No abnormal enhancement. Spleen: Normal size. Adrenal Glands: No nodules. Kidneys and Ureters: 2.8 x 1.9 by 2.9 cm heterogeneous fat containing exophytic right lower pole renal mass has increased slightly in size by a few mm in each direction compared to the prior study. A 2.1 cm similar partially exophytic midpole renal mass has also mildly increased, now measuring 2.3 cm in greatest diameter, previously 1.9 cm. No new renal masses or hydronephrosis. Symmetric renal enhancement. No hydroureter or ureteral calcifications. Stomach and Bowel: Stomach, small bowel loops, and colon are unremarkable. Peritoneum: No free fluid or free air. Ventral Wall: Wide necked fat containing epigastric hernia/diastasis. Abdominal Nodes: No new retroperitoneal or mesenteric adenopathy. Shotty lymph nodes are present, decreased in size compared to prior. Vessels: Aorta and inferior vena cava are normal in size. PELVIS: Pelvic Organs: The prostate gland is absent. No suspicious soft tissue mass. Bladder: Normal wall thickness. Pelvic Nodes: Minimally prominent pelvic lymph nodes previously seen have all decreased in size. Miscellaneous: No inguinal hernias are seen. Bones: Extensive osseous metastatic disease demonstrated by in numerous sclerotic osseous lesions. Stable anterior compression fracture of T5, T7, and superior endplate scalloping of L3. Slight progression of an osteoporotic fracture of L1. Mild anterior wedging of T12. No definite new bone lesions. IMPRESSION: 1. Decreased size pelvic lymph nodes. 2. 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 Continued surveillance recommended. 3. Extensive osseous metastatic disease without significant change. 4. Chronic mid to distal circumferential esophageal wall thickening most likely reflux esophagitis. Underlying neoplasm is not excluded. Dictated by: Haleigh Rai M.D. on 08/18/2022 at 15:48 Approved by: Haleigh Rai M.D. on 08/18/2022 at 16:08
--- NOTE | 2022-08-18 | DI.NM.S_ITS ---
PROCEDURE: [place] BONE SCAN WHOLE BODY RADIOPHARMACEUTICAL: 20.7 mCi Tc-99m MDP IV. INDICATIONS: Malignant neoplasm of prostate TECHNIQUE: Delayed whole-body scintigrams were obtained approximately 3-4 hours after intravenous injection of radiotracer. Anterior and posterior views were acquired from vertex to feet. COMPARISON: [place], [place], [place] BONE SCAN WHOLE BODY, 02/12/2021, 12:10. FINDINGS: Radiotracer excretion is seen in the kidneys and urinary bladder. Numerous metastases appears slightly increased in size and intensity compared to January 2021. Weightbearing lesions are at risk of pathologic fracture. For example L1/L2 lesion. Other lesions are seen in the ribs, long bones, and pelvis. IMPRESSION: Compared to 02/12/2021, very slightly increased size and intensity of numerous osseous metastases. A differential consideration could also be related to increased dose or exposure time. Correlate with lab values. Dictated by: Thanh Cervantes M.D. on 08/18/2022 at 18:28 Approved by: Thanh Cervantes M.D. on 08/18/2022 at 18:32
== END ==
PROVIDERS: Family Provider Family Medicine; PCP Family Medicine; Referring Provider Physician Assistant; Visit Provider Physician Assistant
DX: C61 Malignant neoplasm of prostate (principal); C79.51 Secondary malignant neoplasm of bone
CPT/HCPCS: 71260; 74177; 78306; A9503; Q9967

== ENCOUNTER → 2022-08-30 07:21 | Outpatient (CLI) | payer MEDICARE, SELFPAY ==
[2022-08-30 10:17] LABS: Cholesterol 271 mg/dL (140-199); HDL Cholesterol 53 mg/dL (40-60); LDL Cholesterol Calculated 196 mg/dL (<100); Triglycerides 111 mg/dL (35-150)
== END ==
PROVIDERS: Family Provider Family Medicine; PCP Family Medicine; Referring Provider Family Medicine; Visit Provider Family Medicine
DX: Z13.220 Encounter for screening for lipoid disorders (principal); Z13.6 Encounter for screening for cardiovascular disorders; E78.5 Hyperlipidemia, unspecified
CPT/HCPCS: 36415; 80061

== ENCOUNTER 2023-08-30 06:14 | Emergency (ER) | payer MEDICARE, SELFPAY ==
[2023-08-30] VITALS (10 sets, daily range): BP systolic 126–156; BP diastolic 69–84; PULSE 65–72; RESP 18; TEMP 36.4; O2SAT 94–96; BMI 21.8
--- NOTE | 2023-08-30 06:30 | ED.ABDPAIN ---
HPI - Abdominal Pain <Jodi Bryan DO - Last Filed: 08/30/23 23:31> General Chief Complaint: Abdominal Pain Stated Complaint: can't use bathroom Time Seen by Provider: 08/30/23 06:29 History of Present Illness HPI narrative: Patient is a 73-year-old male history factor 5 Leiden on Eliquis, history of prostate cancer being followed by [facility]. He is actually set to have an appointment with GI specialist today and he is supposed to start some sort of clinical trial on in 2 days. He reports that he is having increasing pain unable to have a bowel movement for the last 5 days. No issues with urination. No fever or chills. No nausea or vomiting. He reports that he has had imaging in a PET scan 2 weeks ago. He is not tried any [id number] medication for his constipation. He did take some Dulcolax which has not really helped. He is not on any opiate or pain medications. Related Data Home Medications Medication Instructions Recorded Confirmed epinephrine 0.3 mg/0.3 mL 0.3 mg PRN PRN Allergic Reaction 08/21/19 09/02/23 injection, auto-injector (EpiPen) apixaban 5 mg tablet (Eliquis) 5 mg PO BID Blood thinners 08/31/23 09/02/23 leuprolide (3 month) 11.25 mg (3 11.25 mg IM [id number] 08/31/23 09/02/23 month) intramuscular syringe kit (Lupron Depot) Allergies Allergy/AdvReac Type Severity Reaction Status Date / Time bee venom protein (honey bee) Allergy Unknown Verified 09/02/23 16:05 Review of Systems <Jodi Bryan DO - Last Filed: 08/30/23 23:31> Review of Systems ROS Unobtainable: All systems reviewed & are unremarkable except as noted in HPI and below Patient History <Jodi Bryan DO - Last Filed: 08/30/23 23:31> Medical History Seborrheic keratosis Cellulitis Sacral region somatic dysfunction Pelvic somatic dysfunction Prostate cancer metastatic to bone Warfarin anticoagulation Leg wound, left Cervical somatic dysfunction Physician orders for life-sustaining treatment (POLST) form indicates patient wish for if-uri-bthfcyyledj status Back stiffness Neck pain Neoplasm of prostate as incidental histologic finding in more than 5% of resected tissue (T1b) Surgical History History of total knee arthroplasty History of orthopedic surgery Social History Smoking Status: Never smoker alcohol intake: current substance use type: does not use Smoking Status: Never smoker alcohol intake frequency: 0-2 drinks per day Substance Use Type: does not use Exam <DO Benito Lund Last Filed: 08/30/23 23:31> Initial Vital Signs Initial Vital Signs: Vital Signs Temperature 97.5 F L 08/30/23 06:28 Pulse Rate 72 08/30/23 06:28 Respiratory Rate 18 08/30/23 06:28 Blood Pressure 156/84 H 08/30/23 06:28 Pulse Oximetry 96 08/30/23 06:28 Oxygen Delivery Method Room Air 08/30/23 06:28 GENERAL: Alert well-appearing 73-year-old and in no acute distress. HEENT: Head atraumatic,EOMI, pupils reactive, face symmetric, moist mucous membranes CARDIOVASCULAR: Regular rate and rhythm without murmurs, rubs or gallops. RESPIRATORY: Breath sounds equal bilaterally, no wheezes rales or rhonchi. ABDOMEN: Soft, nontender. Normoactive bowel sounds all 4 quadrants. No guarding or rebound. EXTREMITIES: Normal range of motion, no clubbing or edema. Neurovascularly intact NEUROLOGICAL: Alert and oriented x4.Normal gait and speech. SKIN: Warm, dry, no laceration, no petechiae, no rashes or lesions. <Marizol Hernández DO - Last Filed: 09/06/23 22:56> Initial Vital Signs Initial Vital Signs: Vital Signs Temperature 97.5 F L 08/30/23 06:28 Pulse Rate 72 08/30/23 06:28 Respiratory Rate 18 08/30/23 06:28 Blood Pressure 156/84 H 08/30/23 06:28 Pulse Oximetry 96 08/30/23 06:28 Oxygen Delivery Method Room Air 08/30/23 06:28 Course <DO Benito Lund Last Filed: 08/30/23 23:31> Orders Ordered: Discontinued Medications Ketorolac Tromethamine (Ketorolac 30 Mg/Ml Vial) 15 mg IV NOW ONE Stop: 08/30/23 08:00 Last Admin: 08/30/23 08:12 Dose: 15 mg Documented By: TEP Magnesium Citrate (Magnesium Citrate 300 Ml Solution) 300 ml PO NOW ONE Stop: 08/30/23 09:19 Last Admin: 08/30/23 09:34 Dose: 300 ml Documented By: RLS Vital Signs Vital signs: Vital Signs - 8 hr 08/30/23 06:28 08/30/23 06:40 08/30/23 06:55 Temperature 97.5 F L Pulse Rate 72 68 71 Respiratory Rate 18 Blood Pressure 156/84 H Pulse Oximetry 96 94 95 Oxygen Delivery Method Room Air Room Air Room Air 08/30/23 06:55 08/30/23 07:00 08/30/23 07:00 Temperature Pulse Rate 71 Respiratory Rate Blood Pressure 136/69 133/73 Pulse Oximetry 95 Oxygen Delivery Method Room Air 08/30/23 07:17 08/30/23 07:17 08/30/23 07:30 Temperature Pulse Rate 71 Respiratory Rate Blood Pressure 143/79 H 129/70 Pulse Oximetry 94 Oxygen Delivery Method 08/30/23 07:30 08/30/23 08:00 08/30/23 08:00 Temperature Pulse Rate 68 67 Respiratory Rate Blood Pressure 138/77 Pulse Oximetry 94 95 Oxygen Delivery Method <Marizol Hernández, - Last Filed: 09/06/23 22:56> Orders Ordered: Discontinued Medications Ketorolac Tromethamine (Ketorolac 30 Mg/Ml Vial) 15 mg IV NOW ONE Stop: 08/30/23 08:00 Last Admin: 08/30/23 08:12 Dose: 15 mg Documented By: TEP Magnesium Citrate (Magnesium Citrate 300 Ml Solution) 300 ml PO NOW ONE Stop: 08/30/23 09:19 Last Admin: 08/30/23 09:34 Dose: 300 ml Documented By: RLS Vital Signs Vital signs: Vital Signs - 8 hr 08/30/23 06:28 08/30/23 06:40 08/30/23 06:55 Temperature 97.5 F L Pulse Rate 72 68 71 Respiratory Rate 18 Blood Pressure 156/84 H Pulse Oximetry 96 94 95 Oxygen Delivery Method Room Air Room Air Room Air 08/30/23 06:55 08/30/23 07:00 08/30/23 07:00 Temperature Pulse Rate 71 Respiratory Rate Blood Pressure 136/69 133/73 Pulse Oximetry 95 Oxygen Delivery Method Room Air 08/30/23 07:17 08/30/23 07:17 08/30/23 07:30 Temperature Pulse Rate 71 Respiratory Rate Blood Pressure 143/79 H 129/70 Pulse Oximetry 94 Oxygen Delivery Method 08/30/23 07:30 08/30/23 08:00 08/30/23 08:00 Temperature Pulse Rate 68 67 Respiratory Rate Blood Pressure 138/77 Pulse Oximetry 94 95 Oxygen Delivery Method MDM - Abdominal Pain <Jodi Bryan, - Last Filed: 08/30/23 23:31> Lab Data 08/30/23 06:53 08/30/23 06:53 Labs: Lab Results 08/30/23 08/30/23 Range/Units 06:53 08:12 WBC 4.2 L (4.5-11.0) X10^3/uL RBC 4.41 L (4.5-5.9) X10^6/uL Hgb 14.4 (13.5-17.5) g/dL Hct 41.6 (41-53) % MCV 94.3 (80-100) fL MCH 32.6 (26-34) PG MCHC 34.6 (30-36) % RDW 13.5 (11.6-14.8) % Plt Count 173 (150-400) X10^3/uL Neut % (Auto) 53.5 (50-75) % Lymph % (Auto) 21.9 L (25-40) % [place] % (Auto) 19.8 H (3-14) % Eos % (Auto) 4.2 H (2-4) % Baso % (Auto) 0.6 (0-2) % Neut # (Auto) 2300 (9455-2404) /uL Lymph # (Auto) 900 L (5316-5006) /uL [place] # (Auto) 800 (0-900) /uL Eos # (Auto) 200 (0-450) /uL Baso # (Auto) 0 (0-100) /uL PT 14.3 H (10.1-12.7) SECONDS INR 1.2 (0.9-1.3) Sodium 138 (137-145) mmol/L Potassium 3.9 (3.4-5.1) mmol/L Chloride 105 (98-107) mmol/L Carbon Dioxide 26 (22-32) mmol/L BUN 15 (9-20) mg/dL Creatinine 0.75 (0.66-1.25) mg/dL Estimated GFR > 60 (>60) mL/min BUN/Creatinine Ratio 20.0 (6-22) Glucose 94 (80-110) mg/dL Calcium 10.1 (8.4-10.2) mg/dL Total Bilirubin 1.3 (0.2-1.3) mg/dL AST 29 (17-59) IU/L ALT 12 (<50) IU/L Alkaline Phosphatase 677 H (38-126) U/L Total Protein 6.9 (6.3-8.2) g/dL Albumin 3.7 (3.5-5.0) g/dL Globulin 3.2 (1.7-4.1) g/dL Albumin/Globulin Ratio 1.2 (1.0-2.8) Lipase 57 (23-300) U/L [facility] Narrative Medical decision making narrative: Patient is 73-year-old male history of prostate cancer presenting today with abdominal pain and constipation. Awaiting for blood work and CT. Signed out to Dr. Hernández overall he appeared well with a soft abdomen. 08/30/23 [place]: Patient signed out to myself by Dr. Bryan. Patient has had constipation symptoms but does have known prostate cancer. Labs show white count of 4.2 hemoglobin of 14, platelets of 173, monocytes are elevated at 19.8 with low lymphocytes. Electrolytes are normal with normal CMP alk-phos is 677 consistent with patient's known metastatic prostate cancer. 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 There was no significant canal compromise by tumor at the imaged levels. Patient appears appropriate for discharge, discussed bowel regimen to help with stooling. Stool is throughout so will likely be more beneficial from a top-down perspective. <Marizol Hernández, DO - Last Filed: 09/06/23 22:56> Lab Data Labs: Lab Results 08/30/23 08/30/23 Range/Units 06:53 08:12 WBC 4.2 L (4.5-11.0) X10^3/uL RBC 4.41 L (4.5-5.9) X10^6/uL Hgb 14.4 (13.5-17.5) g/dL Hct 41.6 (41-53) % MCV 94.3 (80-100) fL MCH 32.6 (26-34) PG MCHC 34.6 (30-36) % RDW 13.5 (11.6-14.8) % Plt Count 173 (150-400) X10^3/uL Neut % (Auto) 53.5 (50-75) % Lymph % (Auto) 21.9 L (25-40) % [place] % (Auto) 19.8 H (3-14) % Eos % (Auto) 4.2 H (2-4) % Baso % (Auto) 0.6 (0-2) % Neut # (Auto) 2300 (2465-2572) /uL Lymph # (Auto) 900 L (8408-9240) /uL [place] # (Auto) 800 (0-900) /uL Eos # (Auto) 200 (0-450) /uL Baso # (Auto) 0 (0-100) /uL PT 14.3 H (10.1-12.7) SECONDS INR 1.2 (0.9-1.3) Sodium 138 (137-145) mmol/L Potassium 3.9 (3.4-5.1) mmol/L Chloride 105 (98-107) mmol/L Carbon Dioxide 26 (22-32) mmol/L BUN 15 (9-20) mg/dL Creatinine 0.75 (0.66-1.25) mg/dL Estimated GFR > 60 (>60) mL/min BUN/Creatinine Ratio 20.0 (6-22) Glucose 94 (80-110) mg/dL Calcium 10.1 (8.4-10.2) mg/dL Total Bilirubin 1.3 (0.2-1.3) mg/dL AST 29 (17-59) IU/L ALT 12 (<50) IU/L Alkaline Phosphatase 677 H (38-126) U/L Total Protein 6.9 (6.3-8.2) g/dL Albumin 3.7 (3.5-5.0) g/dL Globulin 3.2 (1.7-4.1) g/dL Albumin/Globulin Ratio 1.2 (1.0-2.8) Lipase 57 (23-300) U/L Imaging Data CT scan - abdomen/pelvis: Radiologist's Impression: Close Abdomen/Pelvis CT (Signed) Timoteo Ceron - 08/30/23 Launch?Image [address] [address] [address] Scan Report Signed Patient: Patrice Ortiz MR#: [id number] : 1950 Acct:[id number] Age/Sex: 73 / M Date of Service: 08/30/23 Loc: ED Accession Number: [id number] Procedure: CT abdomen pelvis w con Ordering Provider: Jodi Bryan D.O. PROCEDURE: CT ABDOMEN PELVIS W CON INDICATIONS: constipation with prostate cancer TECHNIQUE: After the administration of intravenous contrast, axial sections acquired from the lung bases to the pubic symphysis. Coronal and sagittal reformats were performed. For radiation dose reduction, the following was used: automated exposure control, adjustment of mA and/or kV according to patient size. COMPARISON: [facility], CT, CT CHEST ABD PEL W CON, 08/18/2022, 13:55. FINDINGS: Image quality: Excellent. Lung bases: Unremarkable. Heart: No significant findings. ABDOMEN: Liver: Unremarkable. Gallbladder: Unremarkable. Biliary ducts: Unremarkable. Pancreas: Unremarkable. Spleen: Unremarkable. Adrenal Glands: Unremarkable. 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 The largest single lesion measures 2.6 cm, and is exophytic off the lower pole laterally. Stomach and Bowel: Small hiatal hernia. Thickening of the distal esophagus on the most superior slice may represent associated reflux esophagitis. Stomach, small bowel loops, and colon are unremarkable. Diffusely large fecal load. Peritoneum: No abnormal intraperitoneal fluid. No free air. Ventral Wall: No hernias. Abdominal Nodes: No retroperitoneal or mesenteric adenopathy by size criteria. Vessels: Aorta and inferior vena cava are normal in size. Incidental note is made of the presence of a circumaortic left renal vein. PELVIS: Pelvic Organs: Unremarkable. Bladder: Unremarkable. Pelvic Nodes: No enlarged lymph nodes. Miscellaneous: No hernias are seen. Bones: Marked interval progression of blastic osseous metastatic disease. Findings include numerous chronic compressions. No interval additional compression fractures identified. No obvious significant canal compromise by tumor at the imaged levels. IMPRESSION: 1. Diffuse large fecal load is consistent with constipation. 2. Significant interval progression of extensive blastic bony metastatic disease. Dictated by: Timoteo Ceron M.D. on 08/30/2023 at 7:57 Approved by: Timoteo Ceron M.D. on 08/30/2023 at 8:03 MDM Narrative Medical decision making narrative: Patient is 73-year-old male history of prostate cancer presenting today with abdominal pain and constipation. Awaiting for blood work and CT. Signed out to Dr. Hernández overall he appeared well with a soft abdomen. 08/30/23 [place]: Patient signed out to myself by Dr. Bryan. Patient has had constipation symptoms but does have known prostate cancer. Labs show white count of 4.2 hemoglobin of 14, platelets of 173, monocytes are elevated at 19.8 with low lymphocytes. Electrolytes are normal with normal CMP alk-phos is 677 consistent with patient's known metastatic prostate cancer. INR is 1.2. 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 There was no significant canal compromise by tumor at the imaged levels. Reviewed all these findings with the patient. Patient appears appropriate for discharge, discussed bowel regimen to help with stooling. Stool is throughout so will likely be more beneficial from a top-down perspective. Discussed return precautions. Discharge Plan Departure Patient Disposition: Home Clinical Impression: Constipation Instructions: DI for Constipation Activity Restrictions/Additional Instructions: Follow-up for recheck your preplanned appointment with gastroenterology. Your imaging today shows significant amount of stool throughout the colon. You also have multiple angiomyolipomas in the right kidney which are unchanged from her imaging there has been increased progression of the bony metastatic disease on your imaging. Continue home medications as prescribed. I would recommend drinking plenty of fluids. Continue taking the 2 medications to help with your constipation. You can drink a half bottle of magnesium citrate wait 4-5 hours if no change you can drink the 2nd half of magnesium citrate. Make sure you are eating foods that are high in fiber to help with movement of her bowels. Please return for fevers no abdominal back or flank pain, persistent vomiting, black or bloody stools, if you are not having bowel movements and not passing gas or flatus or other new or concerning changes. Prescriptions: No Action Eliquis 5 mg tablet 5 mg PO BID Lupron Depot (3 month) 11.25 mg syringe kit 11.25 mg IM [id number] epinephrine [EpiPen] 0.3 mg/0.3 mL Auto-Injector 0.3 mg PRN PRN (Reason: Allergic Reaction) Referrals: Reginaldo High DO [Primary Care Provider] - Stand Alone Forms: Patient Portal/API
--- NOTE | 2023-08-30 06:44 | DI.CT.S_ITS ---
PROCEDURE: CT ABDOMEN PELVIS W CON INDICATIONS: constipation with prostate cancer TECHNIQUE: After the administration of intravenous contrast, axial sections acquired from the lung bases to the pubic symphysis. Coronal and sagittal reformats were performed. For radiation dose reduction, the following was used: automated exposure control, adjustment of mA and/or kV according to patient size. COMPARISON: [facility], CT, CT CHEST ABD PEL W CON, 08/18/2022, 13:55. FINDINGS: Image quality: Excellent. Lung bases: Unremarkable. Heart: No significant findings. ABDOMEN: Liver: Unremarkable. Gallbladder: Unremarkable. Biliary ducts: Unremarkable. Pancreas: Unremarkable. Spleen: Unremarkable. Adrenal Glands: Unremarkable. 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 The largest single lesion measures 2.6 cm, and is exophytic off the lower pole laterally. Stomach and Bowel: Small hiatal hernia. Thickening of the distal esophagus on the most superior slice may represent associated reflux esophagitis. Stomach, small bowel loops, and colon are unremarkable. Diffusely large fecal load. Peritoneum: No abnormal intraperitoneal fluid. No free air. Ventral Wall: No hernias. Abdominal Nodes: No retroperitoneal or mesenteric adenopathy by size criteria. Vessels: Aorta and inferior vena cava are normal in size. Incidental note is made of the presence of a circumaortic left renal vein. PELVIS: Pelvic Organs: Unremarkable. Bladder: Unremarkable. Pelvic Nodes: No enlarged lymph nodes. Miscellaneous: No hernias are seen. Bones: Marked interval progression of blastic osseous metastatic disease. Findings include numerous chronic compressions. No interval additional compression fractures identified. No obvious significant canal compromise by tumor at the imaged levels. IMPRESSION: 1. Diffuse large fecal load is consistent with constipation. 2. Significant interval progression of extensive blastic bony metastatic disease. Dictated by: Timoteo Ceron M.D. on 08/30/2023 at 7:57 Approved by: Timoteo Ceron M.D. on 08/30/2023 at 8:03
[2023-08-30 07:02] LABS: Add Manual Diff / Slide Review NO; Basophils Absolute Auto 0 /uL (0-100); Basophils Percent Auto 0.6 % (0-2); Eosinophils Absolute Auto 200 /uL (0-450); Eosinophils Percent Auto 4.2 % (2-4); Hematocrit 41.6 % (41-53); Hemoglobin 14.4 g/dL (13.5-17.5); Lymphocytes Absolute Auto 900 /uL (1100-4500); Lymphocytes Percent Auto 21.9 % (25-40); Mean Corpuscular HGB Conc 34.6 % (30-36); Mean Corpuscular Hemoglobin 32.6 PG (26-34); Mean Corpuscular Volume 94.3 fL (80-100); Monocytes Absolute Auto 800 /uL (0-900); Monocytes Percent Auto 19.8 % (3-14); Neutrophils Absolute Auto 2300 /uL (1500-7000); Neutrophils Percent Auto 53.5 % (50-75); Platelet Count 173 X10^3/uL (150-400); Red Blood Cell Count 4.41 X10^6/uL (4.5-5.9); Red Cell Distribution Width 13.5 % (11.6-14.8); White Blood Cell Count 4.2 X10^3/uL (4.5-11.0)
[2023-08-30 07:17] LABS: Alanine Aminotransferase 12 IU/L (<50); Albumin 3.7 g/dL (3.5-5.0); Albumin Globulin Ratio 1.2 (1.0-2.8); Alkaline Phosphatase 677 U/L (38-126); Aspartate Aminotransferase 29 IU/L (17-59); Bilirubin Total 1.3 mg/dL (0.2-1.3); Blood Urea Nitrogen 15 mg/dL (9-20); Calcium 10.1 mg/dL (8.4-10.2); Carbon Dioxide 26 mmol/L (22-32); Chloride 105 mmol/L (98-107); Estimated Glomerular Filt Rate > 60 mL/min (>60); Globulin 3.2 g/dL (1.7-4.1); Glucose 94 mg/dL (80-110); HEMOLYSIS < 15 (0-50); Lipase 57 U/L (23-300); Potassium 3.9 mmol/L (3.4-5.1); Sodium 138 mmol/L (137-145); Total Protein 6.9 g/dL (6.3-8.2)
[2023-08-30] MEDS: KETOROLAC 30 MG/ML VIAL 15 MG IV (08:12)
[2023-08-30 08:20] LABS: INR 1.2 (0.9-1.3); Prothrombin Time 14.3 SECONDS (10.1-12.7)
[2023-08-30] MEDS: MAGNESIUM CITRATE 300 ML SOLUTION PO (09:34)
== END 2023-08-30 09:46 | disposition home or self-care (01) ==
PROVIDERS: Emergency Medicine; Emergency Provider Emergency Medicine; Family Provider Family Medicine; PCP Family Medicine
DX: K59.00 Constipation, unspecified (principal); Z79.01 Long term (current) use of anticoagulants; Z85.46 Personal history of malignant neoplasm of prostate
CPT/HCPCS: 36415; 74177; 80053; 83690; 85025; 85610; 96374; 99284; J1885; Q9967

== ENCOUNTER → 2023-09-02 16:07 | Outpatient (CLI) | payer MEDICARE, SELFPAY | PROVIDERS: Family Provider Family Medicine; PCP Family Medicine; Visit Provider Nurse Practitioner Family | DX: R10.9 Unspecified abdominal pain (principal) | CPT/HCPCS: 87086 ==

== ENCOUNTER 2023-11-25 17:10 | Emergency (ER) | payer MEDICARE, SELFPAY ==
[2023-11-25 17:25] VITALS: BP 128/70; PULSE 74; RESP 16; TEMP 36.8; O2SAT 96; BMI 20.3
--- NOTE | 2023-11-25 17:36 | ED.RECABL ---
HPI - Recheck/Abnormal Lab/Rx <Arnaud Shannon PA-C - Last Filed: 11/26/23 11:53> General Chief Complaint: Recheck/Abnormal Lab/Rx Stated Complaint: abnormal labs, night sweats, cx patient Time Seen by Provider: 11/25/23 17:30 Source: patient Mode of arrival: Ambulatory History of Present Illness HPI narrative: This is a 73-year-old male presents emergency department due to night sweats for the last 3 days. He denies any other symptoms. He denies back pain, shortness of breath, URI symptoms, chest pain, or any other symptoms. He has a history of prostate cancer with metastasis seen at [facility]. States he told his cancer provider about his symptoms and was advised to go to the emergency department for workup and evaluation. Related Data Home Medications Medication Instructions Recorded Confirmed epinephrine 0.3 mg/0.3 mL 0.3 mg PRN PRN Allergic Reaction 08/21/19 11/01/23 injection, auto-injector (EpiPen) leuprolide (3 month) 11.25 mg (3 11.25 mg IM [id number] 08/31/23 11/01/23 month) intramuscular syringe kit (Lupron Depot) edoxaban 60 mg tablet (Savaysa) 60 mg PO DAILY 11/01/23 11/01/23 Previous Rx's Medication Instructions Recorded warfarin 2.5 mg tablet 2.5 mg PO DAILY #30 tabs 11/01/23 cefpodoxime 200 mg tablet 200 mg PO BID 5 days #10 tabs 11/25/23 Allergies Allergy/AdvReac Type Severity Reaction Status Date / Time bee venom protein (honey bee) Allergy Unknown Verified 10/07/23 10:17 Review of Systems <Arnaud Shannon PA-C - Last Filed: 11/26/23 11:53> Review of Systems Narrative: GENERAL: Reports night sweats, Denies chills, fatigue, malaise, fever, . HEENT: Denies sinus pain, ear pain, sore throat, difficulty swallowing, dizziness. RESPIRATORY: Denies dyspnea, cough, wheezing, hemoptysis, sputum. CARDIOVASCULAR: Denies chest pain, palpitations, orthopnea, edema, GASTROINTESTINAL: Denies nausea, vomiting, abdominal pain, diarrhea, constipation, melena. : Denies dysuria, frequency, incontinence, hematuria, urinary retention. MUSCULOSKELETAL: denies weakness, joint pain, or bony pain SKIN: Denies rash, skin lesions, or other NEUROLOGIC: Denies weakness, headache, numbness, change in speech, confusion, seizures, incoordination. PSYCHIATRIC: No concerning psychosocial issues. 12 point review of systems is negative except for those stated above Patient History <Arnaud Shannon PA-C - Last Filed: 11/26/23 11:53> Medical History Seborrheic keratosis Cellulitis Sacral region somatic dysfunction Pelvic somatic dysfunction Prostate cancer metastatic to bone Warfarin anticoagulation Leg wound, left Cervical somatic dysfunction Physician orders for life-sustaining treatment (POLST) form indicates patient wish for wy-puy-rptcjgfejjy status Back stiffness Neck pain Neoplasm of prostate as incidental histologic finding in more than 5% of resected tissue (T1b) Surgical History History of total knee arthroplasty History of orthopedic surgery Social History Smoking Status: Never smoker alcohol intake: current substance use type: does not use Smoking Status: Never smoker alcohol intake frequency: 0-2 drinks per day Substance Use Type: does not use Exam <Arnaud Shannon PA-C - Last Filed: 11/26/23 11:53> Narrative Exam Narrative: GENERAL: Well-developed patient, in mild distress. HEAD: Atraumatic. Normocephalic. EYES: Pupils equal round and reactive. Extraocular motions intact. No scleral icterus. No injection or drainage. ENT: Nose without bleeding, purulent drainage. Throat without erythema, tonsillar hypertrophy or exudate. Airway patent. NECK: Trachea midline. Non tender EXTREMITIES: No edema or joint tenderness. NEURO: AOx3. SKIN: No rash or erythema of visible areas CARDIOVASCULAR: Regular rate and rhythm without murmurs, gallops, or rubs. RESPIRATORY: Clear to auscultation. Breath sounds equal bilaterally. No wheezes, rales, or rhonchi. GASTROINTESTINAL: Abdomen soft, non-tender, nondistended. BACK: Nontender without deformity or crepitance. No flank tenderness. Initial Vital Signs Initial Vital Signs: Vital Signs Temperature 98.2 F 11/25/23 17:25 Pulse Rate 74 11/25/23 17:25 Respiratory Rate 16 11/25/23 17:25 Blood Pressure 128/70 11/25/23 17:25 Pulse Oximetry 96 11/25/23 17:25 Oxygen Delivery Method Room Air 11/25/23 17:25 <Jodi Bryan DO - Last Filed: 11/29/23 00:43> Initial Vital Signs Initial Vital Signs: Vital Signs Temperature 98.2 F 11/25/23 17:25 Pulse Rate 74 11/25/23 17:25 Respiratory Rate 16 11/25/23 17:25 Blood Pressure 128/70 11/25/23 17:25 Pulse Oximetry 96 11/25/23 17:25 Oxygen Delivery Method Room Air 11/25/23 17:25 Course <Arnaud Shannon PA-C - Last Filed: 11/26/23 11:53> Orders Ordered: Discontinued Medications Amoxicillin/Clavulanate Potassium (Amoxicillin/Clav 875/125 Mg) 1 tab PO NOW ONE Stop: 11/25/23 19:01 Last Admin: 11/25/23 19:15 Dose: 1 tab Documented By: CTS Azithromycin (Azithromycin 250 Mg Tablet) 500 mg PO NOW ONE Stop: 11/25/23 19:01 Last Admin: 11/25/23 19:15 Dose: 500 mg Documented By: CTS Phytonadione (Phytonadione (Vit K1) 5 Mg Tablet) 5 mg PO NOW ONE Stop: 11/25/23 18:57 Last Admin: 11/25/23 19:14 Dose: 5 mg Documented By: CTS Vital Signs Vital signs: Vital Signs - 8 hr 11/25/23 17:25 Temperature 98.2 F Pulse Rate 74 Respiratory Rate 16 Blood Pressure 128/70 Pulse Oximetry 96 Oxygen Delivery Method Room Air <Jodi Bryan DO - Last Filed: 11/29/23 00:43> Orders Ordered: Discontinued Medications Amoxicillin/Clavulanate Potassium (Amoxicillin/Clav 875/125 Mg) 1 tab PO NOW ONE Stop: 11/25/23 19:01 Last Admin: 11/25/23 19:15 Dose: 1 tab Documented By: CTS Azithromycin (Azithromycin 250 Mg Tablet) 500 mg PO NOW ONE Stop: 11/25/23 19:01 Last Admin: 11/25/23 19:15 Dose: 500 mg Documented By: CTS Phytonadione (Phytonadione (Vit K1) 5 Mg Tablet) 5 mg PO NOW ONE Stop: 11/25/23 18:57 Last Admin: 11/25/23 19:14 Dose: 5 mg Documented By: CTS Vital Signs Vital signs: Vital Signs - 8 hr 11/25/23 17:25 Temperature 98.2 F Pulse Rate 74 Respiratory Rate 16 Blood Pressure 128/70 Pulse Oximetry 96 Oxygen Delivery Method Room Air MDM - Recheck/Abnormal Lab/Rx <Arnaud Shannon PA-C - Last Filed: 11/26/23 11:53> Lab Data 11/25/23 18:10 11/25/23 18:10 Labs: Lab Results 11/25/23 Range/Units 18:10 WBC 4.3 L (4.5-11.0) X10^3/uL RBC 3.98 L (4.5-5.9) X10^6/uL Hgb 12.4 L (13.5-17.5) g/dL Hct 36.5 L (41-53) % MCV 91.8 (80-100) fL MCH 31.1 (26-34) PG MCHC 33.9 (30-36) % RDW 13.9 (11.6-14.8) % Plt Count 224 (150-400) X10^3/uL Neut % (Auto) 55.7 (50-75) % Lymph % (Auto) 24.9 L (25-40) % [place] % (Auto) 13.2 (3-14) % Eos % (Auto) 5.5 H (2-4) % Baso % (Auto) 0.7 (0-2) % Neut # (Auto) 2400 (2859-4386) /uL Lymph # (Auto) 1100 (3914-1918) /uL [place] # (Auto) 600 (0-900) /uL Eos # (Auto) 200 (0-450) /uL Baso # (Auto) 0 (0-100) /uL PT 74.4 H (9.4-12.5) SECONDS INR 6.4 H* (0.9-1.3) APTT 55 H (25.1-36.5) SECONDS Sodium 135 L (137-145) mmol/L Potassium 4.3 (3.4-5.1) mmol/L Chloride 104 (98-107) mmol/L Carbon Dioxide 26 (22-32) mmol/L BUN 30 H (9-20) mg/dL Creatinine 0.72 (0.66-1.25) mg/dL Estimated GFR > 60 (>60) mL/min BUN/Creatinine Ratio 41.7 H (6-22) Glucose 116 H (80-110) mg/dL Calcium 9.4 (8.4-10.2) mg/dL Total Bilirubin 0.5 (0.2-1.3) mg/dL AST 30 (17-59) IU/L ALT 11 (<50) IU/L Alkaline Phosphatase 1171 H (38-126) U/L Total Protein 6.6 (6.3-8.2) g/dL Albumin 3.6 (3.5-5.0) g/dL Globulin 3.0 (1.7-4.1) g/dL Albumin/Globulin Ratio 1.2 (1.0-2.8) Imaging Data Chest x-ray: Radiologist's Impression: [address] [address] XRay Report Signed Patient: Patrice Ortiz MR#: [id number] : 1950 Acct:[id number] Age/Sex: 73 / M Date of Service: 11/25/23 Loc: ED Accession Number: [id number] Procedure: XR chest 2V Ordering Provider: Arnaud Shannon P.A-C PROCEDURE: XR CHEST 2V INDICATIONS: Night sweats TECHNIQUE: 2 views of the chest were acquired. COMPARISON: [facility], CT, CT CHEST ABD PEL W CON, 08/18/2022, 13:55. [place], [place], [place] BONE SCAN WHOLE BODY, 02/12/2021, 12:10. [place] BONE SCAN WHOLE BODY, 08/18/2022, 15:27. FINDINGS: Surgical changes and devices: None. Lungs and pleura: Mild infiltrate in the right upper lobe suspicious for pneumonia. Hyperinflation consistent with COPD. There is diffuse interstitial prominence. Mild lower lobe infiltrate may be present, only seen on the lateral view. No pleural effusions or pneumothorax. Mediastinum: Mediastinal contours are normal. Heart size is normal. Bones and chest wall: There is a sclerotic lesion in the left proximal humerus, as well as a lytic lesion in the humeral shaft, partially visualized. A sclerotic lesion is also seen in T12. The findings are consistent with bone metastases. There are compression fractures in thoracic spine, moderate at T6, mild at T4, T8, T9, T11 and T12. No suspicious bony abnormalities. Soft tissues appear unremarkable. IMPRESSION: 1. Suspect right upper lobe pneumonia. 2. COPD. 3. Osseous metastatic disease is present involving the left humerus. This patient has history of prostate cancer. Consider repeat whole bone scan. 4. Multiple compression fractures. Dictated by: Renetta Goldstein M.D. on 11/25/2023 at 18:29 Approved by: Renetta Goldstein M.D. on 11/25/2023 at 18:34 MDM Narrative Medical decision making narrative: ED course: This is a 73-year-old male presents emergency department due to night sweats for 3 days. Patient has a history of metastatic prostate cancer. Chest x-ray ordered which showed pneumonia. We will treat with oral antibiotics. Discussed case with the attending physician, who recommended a 3rd generation cephalosporin, cefpodoxime prescribed as well as a azithromycin. Chest x-ray also showed multiple compression fractures of the patient does not report any trauma or pain to the back and no neuro symptoms. Recommended he follow up with the primary care provider to discuss further management options. Lab work was also ordered. Showed an INR of 6.2. P.o. vitamin K was given here in the emergency department the patient was advised to not take his warfarin until he is able to follow up with the primary care provider on Tuesday for repeat check. CC: Night sweats Complicating co-morbidities: Metastatic prostate cancer Data collected from: Previous notes Medical records reviewed: Patient was last seen here 3 months ago due to constipation. History of factor 5 Leiden on warfarin as well as prostate cancer. Differential considered, but not limited to: Pneumonia Exam documented above, pertinent findings include: No back pain Lab Test results independently reviewed as above. Pertinent findings: Mild leukopenia of 4.3 which appears baseline. Mild anemia although patient reports no active bleeding. INR was notably high at 6.4 as mentioned above. CMP showed no concerning findings. Imaging studies independently reviewed: Chest x-ray showed right upper lobe pneumonia, multiple compression fractures, COPD Scores Used: None MIPS Elements: None Consultations: None Treatments: Oral antibiotics given here as well as p.o. vitamin K Re-evaluations: None Discussion: Discussed plan with the patient was comfortable with the plan Diagnosis: Pneumonia, compression fractures, elevated INR Disposition: see below, along with detailed discharge instructions that have been reviewed with patient as well as indications for ED re-evaluation and additional outpatient follow up <Jodi Bryan DO - Last Filed: 11/29/23 00:43> Lab Data Labs: Lab Results 11/25/23 Range/Units 18:10 WBC 4.3 L (4.5-11.0) X10^3/uL RBC 3.98 L (4.5-5.9) X10^6/uL Hgb 12.4 L (13.5-17.5) g/dL Hct 36.5 L (41-53) % MCV 91.8 (80-100) fL MCH 31.1 (26-34) PG MCHC 33.9 (30-36) % RDW 13.9 (11.6-14.8) % Plt Count 224 (150-400) X10^3/uL Neut % (Auto) 55.7 (50-75) % Lymph % (Auto) 24.9 L (25-40) % [place] % (Auto) 13.2 (3-14) % Eos % (Auto) 5.5 H (2-4) % Baso % (Auto) 0.7 (0-2) % Neut # (Auto) 2400 (3808-1164) /uL Lymph # (Auto) 1100 (4285-1350) /uL [place] # (Auto) 600 (0-900) /uL Eos # (Auto) 200 (0-450) /uL Baso # (Auto) 0 (0-100) /uL PT 74.4 H (9.4-12.5) SECONDS INR 6.4 H* (0.9-1.3) APTT 55 H (25.1-36.5) SECONDS Sodium 135 L (137-145) mmol/L Potassium 4.3 (3.4-5.1) mmol/L Chloride 104 (98-107) mmol/L Carbon Dioxide 26 (22-32) mmol/L BUN 30 H (9-20) mg/dL Creatinine 0.72 (0.66-1.25) mg/dL Estimated GFR > 60 (>60) mL/min BUN/Creatinine Ratio 41.7 H (6-22) Glucose 116 H (80-110) mg/dL Calcium 9.4 (8.4-10.2) mg/dL Total Bilirubin 0.5 (0.2-1.3) mg/dL AST 30 (17-59) IU/L ALT 11 (<50) IU/L Alkaline Phosphatase 1171 H (38-126) U/L Total Protein 6.6 (6.3-8.2) g/dL Albumin 3.6 (3.5-5.0) g/dL Globulin 3.0 (1.7-4.1) g/dL Albumin/Globulin Ratio 1.2 (1.0-2.8) Discharge Plan Departure Patient Disposition: Home Clinical Impression: Pneumonia, Compression fracture, Elevated INR Activity Restrictions/Additional Instructions: Thank you for coming to the [facility] Emergency Department today. As discussed your chest x-ray showed pneumonia. Please take the oral antibiotics as prescribed. Please do not take your warfarin until you are able to follow up on Tuesday with the primary care provider for repeat coagulation blood work to check your INR. Your x-ray also showed multiple compression fractures in your spine, please be very careful to not do any heavy lifting or physical activity until you are able to discuss these with the primary care doctor. Please return to the emergency department if you develop any nausea, vomiting, or any other concerning signs or symptoms. I hope you feel better soon. Please follow up with your primary care provider within a week if your symptoms continue. If you do not have a primary care provider please contact the [facility] Resource line at [phone]. They will ask some questions about your medical history and help you get set up with a provider in the community. Prescriptions: New cefpodoxime 200 mg tablet 200 mg PO BID 5 Days Qty: 10 0RF Rx Instructions: must administer with a meal/food No Action Lupron Depot (3 month) 11.25 mg syringe kit 11.25 mg IM [id number] Savaysa 60 mg tablet 60 mg PO DAILY warfarin 2.5 mg tablet 2.5 mg PO DAILY Qty: 30 1RF epinephrine [EpiPen] 0.3 mg/0.3 mL Auto-Injector 0.3 mg PRN PRN (Reason: Allergic Reaction) Referrals: Reginaldo High DO [Primary Care Provider] - Stand Alone Forms: Patient Portal/API ED Sign-out <Jodi Bryan DO - Last Filed: 11/29/23 00:43> Cosign ED Attending Cosignature Attestation: I was available for consultation.
--- NOTE | 2023-11-25 17:50 | DI.RAD.S_ITS ---
PROCEDURE: XR CHEST 2V INDICATIONS: Night sweats TECHNIQUE: 2 views of the chest were acquired. COMPARISON: [facility], CT, CT CHEST ABD PEL W CON, 08/18/2022, 13:55. [place], [place] BONE SCAN WHOLE BODY, 02/12/2021, 12:10. [place] BONE SCAN WHOLE BODY, 08/18/2022, 15:27. FINDINGS: Surgical changes and devices: None. Lungs and pleura: Mild infiltrate in the right upper lobe suspicious for pneumonia. Hyperinflation consistent with COPD. There is diffuse interstitial prominence. Mild lower lobe infiltrate may be present, only seen on the lateral view. No pleural effusions or pneumothorax. Mediastinum: Mediastinal contours are normal. Heart size is normal. Bones and chest wall: There is a sclerotic lesion in the left proximal humerus, as well as a lytic lesion in the humeral shaft, partially visualized. A sclerotic lesion is also seen in T12. The findings are consistent with bone metastases. There are compression fractures in thoracic spine, moderate at T6, mild at T4, T8, T9, T11 and T12. No suspicious bony abnormalities. Soft tissues appear unremarkable. IMPRESSION: 1. Suspect right upper lobe pneumonia. 2. COPD. 3. Osseous metastatic disease is present involving the left humerus. This patient has history of prostate cancer. Consider repeat whole bone scan. 4. Multiple compression fractures. Dictated by: Renetta Goldstein M.D. on 11/25/2023 at 18:29 Approved by: Renetta Goldstein M.D. on 11/25/2023 at 18:34
[2023-11-25 18:19] LABS: Add Manual Diff / Slide Review NO; Basophils Absolute Auto 0 /uL (0-100); Basophils Percent Auto 0.7 % (0-2); Eosinophils Absolute Auto 200 /uL (0-450); Eosinophils Percent Auto 5.5 % (2-4); Hematocrit 36.5 % (41-53); Hemoglobin 12.4 g/dL (13.5-17.5); Lymphocytes Absolute Auto 1100 /uL (1100-4500); Lymphocytes Percent Auto 24.9 % (25-40); Mean Corpuscular HGB Conc 33.9 % (30-36); Mean Corpuscular Hemoglobin 31.1 PG (26-34); Mean Corpuscular Volume 91.8 fL (80-100); Monocytes Absolute Auto 600 /uL (0-900); Monocytes Percent Auto 13.2 % (3-14); Neutrophils Absolute Auto 2400 /uL (1500-7000); Neutrophils Percent Auto 55.7 % (50-75); Platelet Count 224 X10^3/uL (150-400); Red Blood Cell Count 3.98 X10^6/uL (4.5-5.9); Red Cell Distribution Width 13.9 % (11.6-14.8); White Blood Cell Count 4.3 X10^3/uL (4.5-11.0)
[2023-11-25 18:28] LABS: PTT Partial Thromboplastin Tim 55 SECONDS (25.1-36.5)
[2023-11-25 18:30] LABS: Alanine Aminotransferase 11 IU/L (<50); Albumin 3.6 g/dL (3.5-5.0); Albumin Globulin Ratio 1.2 (1.0-2.8); Alkaline Phosphatase 1171 U/L (38-126); Aspartate Aminotransferase 30 IU/L (17-59); BUN Creatinine Ratio 41.7 (6-22); Bilirubin Total 0.5 mg/dL (0.2-1.3); Blood Urea Nitrogen 30 mg/dL (9-20); Calcium 9.4 mg/dL (8.4-10.2); Carbon Dioxide 26 mmol/L (22-32); Chloride 104 mmol/L (98-107); Estimated Glomerular Filt Rate > 60 mL/min (>60); Glucose 116 mg/dL (80-110); HEMOLYSIS < 15 (0-50); Potassium 4.3 mmol/L (3.4-5.1); Sodium 135 mmol/L (137-145); Total Protein 6.6 g/dL (6.3-8.2)
[2023-11-25 18:40] LABS: Prothrombin Time 74.4 SECONDS (9.4-12.5)
[2023-11-25 18:41] LABS: INR 6.4 (0.9-1.3)
[2023-11-25] MEDS: PHYTONADIONE (VIT K1) 5 MG TABLET PO (19:14)
[2023-11-25] MEDS: AMOXICILLIN/CLAV 875/125 MG 1 TAB PO (19:15)
[2023-11-25] MEDS: AZITHROMYCIN 250 MG TABLET 500 MG PO (19:15)
--- NOTE | 2023-11-25 19:19 | PC.NURSE ---
2 sets of blood cultures drawn per order. PO abx given. PO vitamin K given.
[2023-11-25 19:21] VITALS: BP 137/70; PULSE 65; RESP 20; O2SAT 97
== END 2023-11-25 19:32 | disposition home or self-care (01) ==
PROVIDERS: Emergency Provider Physician Assistant Medical; Family Provider Family Medicine; PCP Family Medicine
DX: J18.9 Pneumonia, unspecified organism (principal); R79.1 Abnormal coagulation profile; M48.54XA Collapsed vertebra, not elsewhere classified, thoracic region, initial encounter for fracture; R61 Generalized hyperhidrosis
CPT/HCPCS: 36415; 71046; 80053; 85025; 85610; 85730; 87040; 99284

== ENCOUNTER → 2023-12-08 09:36 | Outpatient (CLI) | payer MEDICARE, SELFPAY ==
--- NOTE | 2023-12-08 09:40 | DI.RAD.S_ITS ---
PROCEDURE: XR CHEST 2V INDICATIONS: f/u on prior xray, continued night sweats TECHNIQUE: 2 views of the chest were acquired. COMPARISON: [facility], CT, CT CHEST ABD PEL W CON, 08/18/2022, 13:55. [facility], CT, CT ABDOMEN PELVIS W CON, 08/30/2023, 7:04. [facility], CR, XR CHEST 2V, 11/25/2023, 18:10. FINDINGS: Surgical changes and devices: None. Lungs and pleura: Subtle consolidation in the right mid lung. Apparent consolidation in the right upper lobe is a No pleural effusions or pneumothorax. Mediastinum: Mediastinal contours are normal. Heart size is normal. Bones and chest wall: Previously seen sclerotic lesion in the left humerus is partially visualized. Sclerotic appearance of multiple vertebral bodies. Soft tissues appear unremarkable. IMPRESSION: 1. Subtle consolidation in the right mid lung. Differential includes atelectasis, infection, or metastasis. Recommend a CT of the chest for further evaluation. 2. Previously seen sclerotic lesion in the left humerus is partially visualized. Sclerotic appearance of multiple vertebral bodies. Findings are most compatible with known osseous metastatic disease given history of prostate cancer. Consider a bone scan for further evaluation, at clinical discretion. Dictated by: Aba Cummins M.D. on 12/08/2023 at 11:30 Approved by: Aba Cummins M.D. on 12/08/2023 at 11:59
[2023-12-08 13:26] LABS: Add Manual Diff / Slide Review NO; Basophils Absolute Auto 0 /uL (0-100); Basophils Percent Auto 0.8 % (0-2); Eosinophils Absolute Auto 200 /uL (0-450); Eosinophils Percent Auto 3.8 % (2-4); Hemoglobin 12.9 g/dL (13.5-17.5); Lymphocytes Absolute Auto 1100 /uL (1100-4500); Lymphocytes Percent Auto 25.7 % (25-40); Mean Corpuscular HGB Conc 33.9 % (30-36); Mean Corpuscular Hemoglobin 31.2 PG (26-34); Monocytes Absolute Auto 500 /uL (0-900); Monocytes Percent Auto 11.7 % (3-14); Neutrophils Absolute Auto 2400 /uL (1500-7000); Platelet Count 172 X10^3/uL (150-400); Red Blood Cell Count 4.13 X10^6/uL (4.5-5.9); Red Cell Distribution Width 13.9 % (11.6-14.8); White Blood Cell Count 4.1 X10^3/uL (4.5-11.0)
[2023-12-08 13:54] LABS: Alanine Aminotransferase 11 IU/L (<50); Albumin 3.5 g/dL (3.5-5.0); Albumin Globulin Ratio 1.1 (1.0-2.8); Alkaline Phosphatase 1353 U/L (38-126); Aspartate Aminotransferase 28 IU/L (17-59); BUN Creatinine Ratio 33.8 (6-22); Bilirubin Total 0.6 mg/dL (0.2-1.3); Blood Urea Nitrogen 23 mg/dL (9-20); Calcium 8.7 mg/dL (8.4-10.2); Carbon Dioxide 24 mmol/L (22-32); Chloride 105 mmol/L (98-107); Estimated Glomerular Filt Rate > 60 mL/min (>60); Globulin 3.2 g/dL (1.7-4.1); Glucose 142 mg/dL (80-110); HEMOLYSIS < 15 (0-50); Potassium 4.1 mmol/L (3.4-5.1); Sodium 138 mmol/L (137-145); Total Protein 6.7 g/dL (6.3-8.2)
== END ==
PROVIDERS: Family Provider Family Medicine; PCP Family Medicine; Referring Provider Physician Assistant; Visit Provider Physician Assistant
DX: Z87.01 Personal history of pneumonia (recurrent) (principal); C61 Malignant neoplasm of prostate; C79.51 Secondary malignant neoplasm of bone
CPT/HCPCS: 36415; 71046; 80053; 85025

== ENCOUNTER → 2023-12-13 11:47 | Outpatient (CLI) | payer MEDICARE, SELFPAY ==
--- NOTE | 2023-12-13 11:55 | DI.CT.S_ITS ---
PROCEDURE: CT CHEST W CON INDICATIONS: consolidation right lung, hx active metastatic prostate TECHNIQUE: After the administration of intravenous contrast, 5 mm thick sections acquired from the pulmonary apices to the posterior costophrenic angles. 1 mm axial lung, 5 mm thick coronal and sagittal reformats and 7 mm axial MIP were acquired. For radiation dose reduction, the following was used: automated exposure control, adjustment of mA and/or kV according to patient size. COMPARISON: [place] BONE [place]AN WHOLE BODY, 08/18/2022, 15:27. [facility], CR, XR CHEST 2V, 12/08/2023, 9:53. [facility], CR, XR CHEST 2V, 11/25/2023, 18:10. [facility], CT, CT ABDOMEN PELVIS W CON, 08/30/2023, 7:04. [facility], CT, CT CHEST ABD PEL W CON, 08/18/2022, 13:55. FINDINGS: Image quality: Diagnostic. Lower Neck: No enlarged lymph nodes. Thyroid: No thyroid nodules which require sonographic follow up, per consensus guidelines. Axillae: No enlarged lymph nodes. Chest Wall: Unremarkable. Bones: There is a diffuse appearance of sclerosis within the axial and appendicular skeleton. Overall, it is progressive compared to prior exam in 2021. Lungs and Pleura: Emphysematous changes are present. Areas of scarring and interstitial thickening are present in the periphery of the lungs bilaterally. Heart: Heart size is normal. No pericardial effusion. Thoracic Vessels: The aorta and pulmonary arteries demonstrate normal size. Mediastinum and [place]: No enlarged lymph nodes. Esophagus: No wall thickening. Mild hiatal hernia. Upper Abdomen: Visualized upper abdomen solid organs and bowel loops appear normal. IMPRESSION: Lungs are clear. Osseous metastatic disease within the visualized axial and appendicular skeleton felt to be progressive since 2021. Dictated by: Gemma Bhatti M.D. on 12/13/2023 at 15:03 Approved by: Gemma Bhatti M.D. on 12/13/2023 at 15:06
== END ==
PROVIDERS: Family Provider Family Medicine; PCP Family Medicine; Referring Provider Physician Assistant; Visit Provider Physician Assistant
DX: C79.51 Secondary malignant neoplasm of bone (principal); J18.1 Lobar pneumonia, unspecified organism; C61 Malignant neoplasm of prostate
CPT/HCPCS: 71260; Q9967

== ENCOUNTER 2023-12-24 10:17 | Emergency (ER) | payer MEDICARE, SELFPAY ==
[2023-12-24] VITALS (20 sets, daily range): BP systolic 119–151; BP diastolic 59–83; PULSE 65–84; RESP 16; TEMP 36.6; O2SAT 94–97; BMI 20.3
--- NOTE | 2023-12-24 10:37 | ED_ITS ---
HPI - Recheck/Abnormal Lab/Rx General Chief Complaint: Recheck/Abnormal Lab/Rx Stated Complaint: pneumonia T-1 month Time Seen by Provider: 12/24/23 10:22 Source: patient Mode of arrival: Ambulatory History of Present Illness HPI narrative: 73-year-old male with history of venous thromboembolism, cellulitis, Varma's cyst, factor 5 Leiden, prostate cancer, on warfarin presents with concern for ongoing fevers and weakness. The patient states that he was recently started on chemotherapy, roughly 10 days ago, for metastatic prostate cancer. However, in the last month he has had intermittent night sweats, fever, progressive weakness and fatigue. He states the only time the symptoms were not occurring was when he was on 5 days of cefpodoxime for presumed pneumonia in mid November. Symptoms have recurred since then and are not getting better. No rapidly progressive symptoms. No chest pain at any time. No shortness of breath. He has mild cough that is not bloody. His father had tuberculosis distantly but he denies any personal history of this. No abdominal pain. No back or flank pain. No dysuria, hematuria, urinary frequency, lightheadedness or passing out, sore throat, rhinorrhea, rash, diarrhea, constipation, blood in stool, or any other changes. He does not have a port. Per chart review, he has been seen with night sweats in mid November after diagnosis of pneumonia with antibiotics being prescribed. He had chest x-ray showing subtle consolidation in right mid lung, with CT scan recommended, with malignancy on differential for this finding as well. He has known metastatic disease. 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 Related Data Home Medications Medication Instructions Recorded Confirmed epinephrine 0.3 mg/0.3 mL 0.3 mg PRN PRN Allergic Reaction 08/21/19 12/08/23 injection, auto-injector (EpiPen) leuprolide (3 month) 11.25 mg (3 11.25 mg IM [id number] 08/31/23 12/08/23 month) intramuscular syringe kit (Lupron Depot) warfarin 2 mg tablet 2 mg PO DAILY 12/08/23 12/08/23 warfarin 5 mg tablet 5 mg PO DAILY 12/08/23 12/08/23 Previous Rx's Medication Instructions Recorded amoxicillin 875 mg-potassium 1 tab PO BID 7 days #14 tabs 12/24/23 clavulanate 125 mg tablet levofloxacin 750 mg tablet 750 mg PO DAILY 7 days #7 tabs 12/24/23 Allergies Allergy/AdvReac Type Severity Reaction Status Date / Time bee venom protein (honey bee) Allergy Unknown Verified 12/24/23 10:25 Review of Systems Review of Systems Narrative: Constitutional: + fever, no chills Eyes: no visual disturbance, no discharge Ears, Nose, Mouth, Throat: no rhinorrhea, no sore throat Cardiovascular: no chest pain, no palpitations Respiratory: + cough, no shortness of breath Gastrointestinal: no abdominal pain, no vomiting, no diarrhea Genitourinary: no dysuria, no hematuria Musculoskeletal: no back pain, no neck stiffness Skin: no rash, no wound Neurological: no focal weakness, no focal numbness Patient History Medical History Seborrheic keratosis Cellulitis Sacral region somatic dysfunction Pelvic somatic dysfunction Prostate cancer metastatic to bone Warfarin anticoagulation Leg wound, left Cervical somatic dysfunction Physician orders for life-sustaining treatment (POLST) form indicates patient wish for [id number] status Back stiffness Neck pain Neoplasm of prostate as incidental histologic finding in more than 5% of resected tissue (T1b) Surgical History History of total knee arthroplasty History of orthopedic surgery Social History Smoking Status: Never smoker alcohol intake: current substance use type: does not use Smoking Status: Never smoker alcohol intake frequency: holidays/special occasions only Substance Use Type: does not use Exam Narrative Exam Narrative: Const: no acute distress, non toxic appearing; calm, conversant, pleasant Eyes: PERRLA, EOMI ENT: mucous membranes moist Neck: supple, non-tender Resp: no respiratory distress, clear to auscultation bilaterally Card: regular rate and rhythm, no murmurs Abd: non tender diffusely, no rigidity or rebound or guarding Back: no T or L spine tenderness, no CVA tenderness bilaterally Extrem: no deformities, no swelling bilateral lower extremities, 2+ distal pulses all extremities Neuro: ANOx4, 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 owned 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 grossly intact, grossly intact sensation and strength all extremities Skin: no rash, warm and dry Initial Vital Signs Initial Vital Signs: Vital Signs Temperature 97.9 F 12/24/23 10:19 Pulse Rate 74 12/24/23 10:19 Respiratory Rate 16 12/24/23 10:19 Blood Pressure 151/72 H 12/24/23 10:19 Pulse Oximetry 96 12/24/23 10:19 Oxygen Delivery Method Room Air 12/24/23 10:19 Course Course Course Narrative: This presentation is most suggestive of intermittent fever, fatigue in the setting of metastatic cancer which is likely driving this; however, I have considered a broad differential including but not limited to pneumonia, pulmonary embolism, with tuberculosis much less likely given recent CT scan though technically possible. No clear urinary symptoms. Patient has benign abdomen. Patient is well-perfused and currently stable, afebrile. I am nonetheless pursuing broad workup with CBC, CMP, urinalysis, viral swab, blood cultures x2, lactate, CTA PE study, and also sending QuantiFERON gold that patient knows he will need to follow up on as it may not return today. He declines medications currently. Lab working on finding QuantiFERON gold order. QuantiFERON gold sent. EKG NSR without acute ischemia or immediately concerning interval prolongation on my review. CBC with leukopenia in the setting of chemotherapy. Mild anemia appears similar to prior. Differential reported as not reportable; I called lab and they stated they are working on this manually. Patient afebrile here, however given recent reported fevers, I am giving a dose of cefepime here, 2g IV. Chemistry with borderline hyponatremia similar to prior, with creatinine similar to prior, ALP elevated similar to prior in setting of known metastatic bony disease, no AST or ALT or bilirubin elevation. Lactate reassuring. Viral swab negative. UA with blood, occasional bacteria but only 1-5 WBCs, no leukocyte esterase, negative nitrates, in setting of NO urinary symptoms, abdominal pain, or flank pain. Even in setting of immunosuppression, this seems unlikely to represent clinically significant UTI; however, still sending urine culture with instruction given to pt to follow up on this. Segmented neutrophil % returned at 22, with total neutrophils of 416, consistent with severe neutropenia. Note pt does not have a port. CT read by radiology below: FINDINGS: Image quality: Diagnostic. Pulmonary arteries: Pulmonary arteries are normal in size, and demonstrate no intraluminal filling defects to suggest central pulmonary embolism. Lower Neck: No enlarged lymph nodes. Thyroid: No thyroid nodules which require sonographic follow up, per consensus guidelines. Axillae: No enlarged lymph nodes. Chest Wall: Unremarkable. Bones: Diffuse osteoblastic metastatic disease noted involving the thoracolumbar spine, sternum, ribs, scapula and proximal humerus bilaterally. Lungs and Pleura: Pulmonary hyperinflation and small subpleural blebs noted particularly in the right lower lobe Heart: Heart size is normal. No pericardial effusion. Thoracic Vessels: No aortic aneurysm. Mediastinum and Brooke: No enlarged lymph nodes. Esophagus: No wall thickening. No hiatal hernia. Upper Abdomen: Visualized upper abdomen solid organs and bowel loops appear normal. IMPRESSION: No evidence of pulmonary embolism, aortic dissection or aneurysm Pulmonary hyperinflation and small subpleural blebs. Stable diffuse osteoblastic metastatic disease, unchanged from 12/13/2023 Approved by: Flash Martinez M.D. on 12/24/2023 at 12:18 I am consulting [facility], where the patient receives his care. He remains very stable. This is still consistent with neutropenic fever, without clear infectious source. Metastatic disease may still be driving symptoms. At roughly 1:58PM, I spoke with [facility] MILAGROS Booth who reviewed case with me on phone; he will review chart and call back with recommendations, anticipating that discharge home with PO antibiotics, strict return precautions and close follow up would be reasonable. I spoke again with MILAGROS Booth who spoke with Dr. Little, who discussed that if patient having true fever or chills, they recommended admission for up to 48hrs on 2g IV cefepime Qday. If patient then appears well, he can discharge on Levofloxacin and Augmentin. If he appears very well tomorrow, this may be a consideration as well, but 48hrs would be standard per report. However, if patient NOT having recorded fever or chills, rather isolated night sweats, discharge now on above antibiotics would be reasonable, with patient instructed strictly not to take Tylenol and to very closely follow up. I am discussing with patient. Patient states explicitly he has NOT had any fevers or chills on clarification. I clarified this with him multiple times. He has NOT taken tylenol recently. He states very clearly he is having isolated night sweats only. Based on my conversation above with his oncology team, accordingly discharged on levofloxacin and Augmentin with very close follow-up and very strict return precautions is reasonable. We discussed this along with follow up of tuberculosis test, blood and urine cultures, and to not use Tylenol. He fully understands and is comfortable with plan. I am adding INR level given Augmentin and Levofloxacin can interact with warfarin, and expressing strict importance of close follow up of INR. INR reassuring currently. Patient states he self checks is INR and is very able to follow up on this, understanding potential medication interactions. He has excellent healthcare literacy. Repeat exam and vital signs reassuring. Questions answered. Plan reviewed. Patient discharged in stable condition. Orders Ordered: ED Orders 12/24/23 10:50 CBC Auto Diff [Complete Blood Count AUTO DIFF] Stat CMP [Comprehensive Metabolic Panel] Stat Lactate (Lactic Acid) Stat Prothrombin Time INR Stat 12/24/23 10:57 CT angio chest PE protocol Stat 12/24/23 11:10 Covid-19 + FLU A/B + RSV - PCR Stat 12/24/23 11:20 Urinalysis and Microscopic Stat Urine Culture Stat EKG-12 Lead Stat 12/24/23 11:30 Blood Culture Stat QuantiFerron TB Stat Discontinued Medications Cefepime HCl 2 gm/ Sodium (Chloride) 100 mls @ 200 mls/hr IV NOW ONE Stop: 12/24/23 11:11 Last Infusion: 12/24/23 12:12 Dose: Infused Documented By: Infusion: 12/24/23 11:44 Dose: 200 mls/hr Documented By: Infusion: 12/24/23 11:31 Dose: 0 mls/hr Documented By: Admin: 12/24/23 11:24 Dose: 200 mls/hr Documented By: ELZBIETA Ondansetron HCl (Ondansetron 4 Mg Odt) 4 mg SL NOW ONE Stop: 12/24/23 11:22 Last Admin: 12/24/23 11:23 Dose: 4 mg Documented By: ELZBIETA Vital Signs Vital signs: Vital Signs - 8 hr 12/24/23 10:19 12/24/23 10:23 12/24/23 10:23 Temperature 97.9 F Pulse Rate 74 84 Respiratory Rate 16 Blood Pressure 151/72 H 151/72 H Pulse Oximetry 96 97 Oxygen Delivery Method Room Air 12/24/23 10:30 12/24/23 10:30 12/24/23 11:00 Temperature Pulse Rate 78 76 Respiratory Rate Blood Pressure 125/62 Pulse Oximetry 97 97 Oxygen Delivery Method 12/24/23 11:00 12/24/23 11:18 12/24/23 11:18 Temperature Pulse Rate 77 Respiratory Rate Blood Pressure 119/59 L 145/68 H Pulse Oximetry 96 Oxygen Delivery Method 12/24/23 11:30 12/24/23 11:30 12/24/23 12:00 Temperature Pulse Rate 72 69 Respiratory Rate Blood Pressure 131/63 Pulse Oximetry 97 97 Oxygen Delivery Method 12/24/23 12:30 12/24/23 12:47 12/24/23 12:47 Temperature Pulse Rate 67 67 Respiratory Rate Blood Pressure 119/69 Pulse Oximetry 96 95 Oxygen Delivery Method 12/24/23 13:00 12/24/23 13:00 12/24/23 13:15 Temperature Pulse Rate 65 Respiratory Rate Blood Pressure 126/71 128/76 Pulse Oximetry 95 Oxygen Delivery Method 12/24/23 13:15 12/24/23 13:30 12/24/23 13:30 Temperature Pulse Rate 68 69 Respiratory Rate Blood Pressure 130/83 Pulse Oximetry 95 94 Oxygen Delivery Method 12/24/23 13:45 12/24/23 13:45 12/24/23 14:00 Temperature Pulse Rate 73 73 Respiratory Rate Blood Pressure 142/80 H Pulse Oximetry 96 96 Oxygen Delivery Method 12/24/23 14:00 12/24/23 14:15 12/24/23 14:15 Temperature Pulse Rate 71 Respiratory Rate Blood Pressure 140/76 133/73 Pulse Oximetry 95 Oxygen Delivery Method 12/24/23 14:30 12/24/23 14:30 12/24/23 14:45 Temperature Pulse Rate 68 Respiratory Rate Blood Pressure 125/66 125/70 Pulse Oximetry 95 Oxygen Delivery Method 12/24/23 14:45 12/24/23 15:00 12/24/23 15:00 Temperature Pulse Rate 70 70 Respiratory Rate Blood Pressure 135/74 Pulse Oximetry 95 96 Oxygen Delivery Method 12/24/23 15:15 12/24/23 15:15 12/24/23 15:30 Temperature Pulse Rate 70 67 Respiratory Rate Blood Pressure 122/70 Pulse Oximetry 94 96 Oxygen Delivery Method 12/24/23 15:30 Temperature Pulse Rate Respiratory Rate Blood Pressure 134/78 Pulse Oximetry Oxygen Delivery Method MDM - Recheck/Abnormal Lab/Rx Lab Data 12/24/23 10:50 12/24/23 10:50 Labs: Lab Results 12/24/23 12/24/23 12/24/23 Range/Units 10:50 11:10 11:20 WBC 1.6 L* (4.5-11.0) X10^3/uL RBC 4.18 L (4.5-5.9) X10^6/uL Hgb 12.8 L (13.5-17.5) g/dL Hct 38.1 L (41-53) % MCV 91.2 (80-100) fL MCH 30.7 (26-34) PG MCHC 33.6 (30-36) % RDW 14.5 (11.6-14.8) % Plt Count 154 (150-400) X10^3/uL Neut % (Auto) Not Reportable Lymph % (Auto) Not Reportable Mora % (Auto) Not Reportable Eos % (Auto) Not Reportable Baso % (Auto) Not Reportable Lymph # (Auto) Not Reportable [place] # (Auto) Not Reportable Baso # (Auto) Not Reportable Total Counted 50 Seg Neutrophils % 22.0 L (38-70) % Band Neutrophils % 4.0 (3-7) % Lymphocytes % (Manual) 54.0 H (25-45) % Monocytes % (Manual) 14.0 H (2-11) % Eosinophils % (Manual) 6.0 H (2-4) % Neutrophils # (Manual) 416 L (0875-4892) /uL RBC Morphology Normal morphology PT 22.7 H (9.4-12.5) SECONDS INR 2.0 H (0.9-1.3) Sodium 135 L (137-145) mmol/L Potassium 4.1 (3.4-5.1) mmol/L Chloride 107 (98-107) mmol/L Carbon Dioxide 26 (22-32) mmol/L BUN 23 H (9-20) mg/dL Creatinine 0.71 (0.66-1.25) mg/dL Estimated GFR > 60 (>60) mL/min BUN/Creatinine Ratio 32.4 H (6-22) Glucose 110 (80-110) mg/dL Lactate 1.3 (0.7-2.1) mmol/L Calcium 8.5 (8.4-10.2) mg/dL Total Bilirubin 0.8 (0.2-1.3) mg/dL AST 31 (17-59) IU/L ALT 13 (<50) IU/L Alkaline Phosphatase 1013 H (38-126) U/L Total Protein 6.5 (6.3-8.2) g/dL Albumin 3.6 (3.5-5.0) g/dL Globulin 2.9 (1.7-4.1) g/dL Albumin/Globulin Ratio 1.2 (1.0-2.8) Urine Color Yellow Urine Appearance Clear Urine pH 5.0 (4.5-8.0) Ur Specific [place] >=1.030 H (1.000-1.035) Urine Protein Negative (Negative) Urine Glucose (UA) Negative (Negative) g/dL Urine Ketones Negative (NEGATIVE) Urine Occult Blood 3+ H (Negative) Urine Nitrate Negative (Negative) Urine Bilirubin Negative (NEGATIVE) Urine Urobilinogen 0.2 (0.2) E.U./dL Ur Leukocyte Esterase Negative (NEGATIVE) Urine RBC 10-30/hpf H (0-5/HPF) Urine WBC 1-5/hpf (0-5/HPF) Ur Squamous Epith Cells None seen (0-5/HPF) Amorphous Sediment 1+ Urine Bacteria Occasional (0-1) (None) Urine Mucus 2+ H (Negative) Ur Culture Indicated? Specimen cultured Vol Urine Centrifuged 10ml (spun) SARS-CoV-2 (PCR) Negative (Negative) Influenza A (RT-PCR) Flu a negative (NEGATIVE) Influenza B (RT-PCR) Flu b negative (NEGATIVE) RSV (PCR) Negative (Negative) Discharge Plan Departure Patient Disposition: Home Clinical Impression: Neutropenia Instructions: DI for Neutropenia Activity Restrictions/Additional Instructions: It was a pleasure taking care of you today. It is important to fully read and understand the below. Please ask us if you have any questions. We think the most likely cause of your symptoms is your underlying malignancy. We obtained extensive testing and spoke with your oncology team here. However, as discussed, your neutrophils and white blood cell counts are now very low, which makes it extremely important to monitor carefully for infection. I am giving you to antibiotics to take. You must see a doctor within 2-3 days to be reassessed. Please follow these instructions and immediately return if you have any new or worsening symptoms as discussed. I sent a urine culture. Please follow up on this and your blood cultures within 48 hours with your primary doctor. Also discuss your low white blood cell count and anemia. Repeat your CBC and CMP. Do NOT take tylenol, as this can mask fever. IN ADDITION, YOU NEED YOUR INR RECHECKED WITHIN 2-3 DAYS. THE MEDICATIONS WE ARE GIVING CAN INTERACT WITH WARFARIN. No tests or assessments are perfect, and your condition could exchange administrator time. If your symptoms change or worsen, it is very important you immediately seek medical care. If you have any new or worsening pain, lightheadedness or passing out, ANY FEVER OR CHILLS, shortness of breath, rash, vomiting, confusion, numbness, weakness, or anything else that concerns you, please immediately seek medical care. If you have been prescribed any medications: please read the drug package inserts on how to properly use the medication and any potential side effects. If you had labs (blood tests) or imaging (CT scan or x-rays) done during your visit: please follow up on the results of these with your primary care doctor, as discussed. In addition, please know the results we received today may be preliminary. Our usual practice is to follow up on tests within a few days of a patient's discharge from the Emergency Department and notify you of any changes. These may lead to changes to your treatment plan. However, the best way to obtain and interpret these test results is through your Primary Care Provider. If you need to update your contact information, please stop by the front desk auxiliary and alert the Registration personnel before you leave the Emergency Department. Thank you for the opportunity to participate in your healthcare. We are always here and happy to see you in the future. --- PLEASE TAKE THE ATTACHED IMAGING TO YOUR DOCTORS: CT read by radiology below: FINDINGS: Image quality: Diagnostic. Pulmonary arteries: Pulmonary arteries are normal in size, and demonstrate no intraluminal filling defects to suggest central pulmonary embolism. Lower Neck: No enlarged lymph nodes. Thyroid: No thyroid nodules which require sonographic follow up, per consensus guidelines. Axillae: No enlarged lymph nodes. Chest Wall: Unremarkable. Bones: Diffuse osteoblastic metastatic disease noted involving the thoracolumbar spine, sternum, ribs, scapula and proximal humerus bilaterally. Lungs and Pleura: Pulmonary hyperinflation and small subpleural blebs noted particularly in the right lower lobe Heart: Heart size is normal. No pericardial effusion. Thoracic Vessels: No aortic aneurysm. Mediastinum and Brooke: No enlarged lymph nodes. Esophagus: No wall thickening. No hiatal hernia. Upper Abdomen: Visualized upper abdomen solid organs and bowel loops appear normal. IMPRESSION: No evidence of pulmonary embolism, aortic dissection or aneurysm Pulmonary hyperinflation and small subpleural blebs. Stable diffuse osteoblastic metastatic disease, unchanged from 12/13/2023 Approved by: Flsah Martinez M.D. on 12/24/2023 at 12:18 Prescriptions: New levofloxacin 750 mg tablet 750 mg PO DAILY 7 Days Qty: 7 0RF amoxicillin-pot clavulanate 875-125 mg tablet 1 tab PO BID 7 Days Qty: 14 0RF No Action Lupron Depot (3 month) 11.25 mg syringe kit 11.25 mg IM [id number] warfarin 5 mg tablet 5 mg PO DAILY Patient Comments: Takes total of 7mg warfarin 2 mg tablet 2 mg PO DAILY Patient Comments: Takes total of 7mg epinephrine [EpiPen] 0.3 mg/0.3 mL Auto-Injector 0.3 mg PRN PRN (Reason: Allergic Reaction) Referrals: Reginaldo High DO [Primary Care Provider] - Stand Alone Forms: Patient Portal/API
--- NOTE | 2023-12-24 10:57 | DI.CT.S_ITS ---
PROCEDURE: CT ANGIO CHEST PE PROTOCOL INDICATIONS: assess for PE, PNA, new metastatic lesions TECHNIQUE: After the administration of intravenous contrast, 2 mm thick sections acquired from the pulmonary apices to the posterior costophrenic angles. 3-dimensional maximum intensity projection (MIP) coronal and sagittal reformats were then acquired through the thorax. For radiation dose reduction, the following was used: automated exposure control, adjustment of mA and/or kV according to patient size. COMPARISON: None. FINDINGS: Image quality: Diagnostic. Pulmonary arteries: Pulmonary arteries are normal in size, and demonstrate no intraluminal filling defects to suggest central pulmonary embolism. Lower Neck: No enlarged lymph nodes. Thyroid: No thyroid nodules which require sonographic follow up, per consensus guidelines. Axillae: No enlarged lymph nodes. Chest Wall: Unremarkable. Bones: Diffuse osteoblastic metastatic disease noted involving the thoracolumbar spine, sternum, ribs, scapula and proximal humerus bilaterally. Lungs and Pleura: Pulmonary hyperinflation and small subpleural blebs noted particularly in the right lower lobe Heart: Heart size is normal. No pericardial effusion. Thoracic Vessels: No aortic aneurysm. Mediastinum and Brooke: No enlarged lymph nodes. Esophagus: No wall thickening. No hiatal hernia. Upper Abdomen: Visualized upper abdomen solid organs and bowel loops appear normal. IMPRESSION: No evidence of pulmonary embolism, aortic dissection or aneurysm Pulmonary hyperinflation and small subpleural blebs. Stable diffuse osteoblastic metastatic disease, unchanged from 12/13/2023 Approved by: Flash Martinez M.D. on 12/24/2023 at 12:18
[2023-12-24 11:07] LABS: Hematocrit 38.1 % (41-53); Hemoglobin 12.8 g/dL (13.5-17.5); Mean Corpuscular HGB Conc 33.6 % (30-36); Mean Corpuscular Hemoglobin 30.7 PG (26-34); Mean Corpuscular Volume 91.2 fL (80-100); Platelet Count 154 X10^3/uL (150-400); Red Blood Cell Count 4.18 X10^6/uL (4.5-5.9); Red Cell Distribution Width 14.5 % (11.6-14.8)
[2023-12-24 11:09] LABS: Add Manual Diff / Slide Review YES; White Blood Cell Count 1.6 X10^3/uL (4.5-11.0)
[2023-12-24 11:19] LABS: Alanine Aminotransferase 13 IU/L (<50); Albumin 3.6 g/dL (3.5-5.0); Albumin Globulin Ratio 1.2 (1.0-2.8); Alkaline Phosphatase 1013 U/L (38-126); Aspartate Aminotransferase 31 IU/L (17-59); BUN Creatinine Ratio 32.4 (6-22); Bilirubin Total 0.8 mg/dL (0.2-1.3); Blood Urea Nitrogen 23 mg/dL (9-20); Calcium 8.5 mg/dL (8.4-10.2); Carbon Dioxide 26 mmol/L (22-32); Chloride 107 mmol/L (98-107); Estimated Glomerular Filt Rate > 60 mL/min (>60); Globulin 2.9 g/dL (1.7-4.1); Glucose 110 mg/dL (80-110); HEMOLYSIS < 15 (0-50); Potassium 4.1 mmol/L (3.4-5.1); Sodium 135 mmol/L (137-145); Total Protein 6.5 g/dL (6.3-8.2)
[2023-12-24 11:21] LABS: Lactate (Lactic Acid) 1.3 mmol/L (0.7-2.1)
[2023-12-24] MEDS: ONDANSETRON 4 MG ODT SL (11:23)
[2023-12-24] MEDS: CEFEPIME 2 GM in SODIUM CHLORIDE 0.9% 100 ML IV (11:24)
[2023-12-24 11:28] LABS: Appearance Urine UA CLEAR; Bilirubin Urine UA NEGATIVE (NEGATIVE); Color Urine UA YELLOW; Glucose Urine UA NEGATIVE (Negative); Ketones Urine UA NEGATIVE (NEGATIVE); Leukocyte Esterase Urine UA NEGATIVE (NEGATIVE); Nitrite Urine UA NEGATIVE (Negative); Occult Blood Urine UA 3+ (Negative); Protein Urine UA NEGATIVE (Negative); Specific Gravity Urine UA >=1.030 (1.000-1.035); Urobilinogen Urine UA 0.2 E.U./dL (0.2)
--- NOTE | 2023-12-24 11:31 | PC.NURSE ---
Patient left department with payroll technician for CT. Infusion placed on paused due to the line being needed for the contrast study.
[2023-12-24 11:42] LABS: Neutrophils Absolute Manual 416 /uL (3000-5900); RBC Morphology Normal Morphology; Total Cells Counted 50
[2023-12-24 11:49] LABS: Amorphous Sediment Urine 1+; Bacteria Urine Occasional (0-1); Culture Indicated Urine Specimen Cultured; Mucus Urine 2+ (Negative); RBC Urine 10-30/HPF (0-5/HPF); Squamous Epithelial Cell Urine None Seen (0-5/HPF); Urine Volume 10mL (spun); WBC Urine 1-5/HPF (0-5/HPF)
[2023-12-24 11:54] LABS: Influenza A - CEPHEID Flu A NEGATIVE (NEGATIVE); Influenza B - CEPHEID Flu B NEGATIVE (NEGATIVE); Respiratory Syncytial Virus Negative (Negative)
[2023-12-24 11:56] LABS: COVID-19 CEPHEID 4-PLEX PCR Negative (Negative)
[2023-12-24 15:10] LABS: Prothrombin Time 22.7 SECONDS (9.4-12.5)
--- NOTE | 2023-12-24 15:21 | PC.NURSE ---
This RN asked provider and patient able to eat. This RN was given chinese yogurt and ice water per patient request.
[2023-12-28 11:45] LABS: QuantiFERON Mitogen Value >10.00 IU/mL (.); QuantiFERON Nil Value 0.06 IU/mL (.); QuantiFERON TB Gold Plus Negative (Negative); QuantiFERON TB2 Ag Value 0.14 IU/mL (.)
== END 2023-12-24 15:42 | disposition home or self-care (01) ==
PROVIDERS: Emergency Provider Emergency Medicine; Family Provider Family Medicine; PCP Family Medicine
DX: D70.9 Neutropenia, unspecified (principal); C61 Malignant neoplasm of prostate; R07.9 Chest pain, unspecified; Z79.01 Long term (current) use of anticoagulants; Z20.822 Contact with and (suspected) exposure to COVID-19
CPT/HCPCS: 0241U; 36415; 71275; 80053; 81001; 83605; 85007; 85025; 85610; 86480; 87040; 87086; 93005; 96365; 99284; J0692; Q9967

== ENCOUNTER → 2024-01-20 08:57 | Outpatient (CLI) | payer MEDICARE, SELFPAY ==
[2024-01-20 10:03] LABS: Add Manual Diff / Slide Review NO; Basophils Absolute Auto 0 /uL (0-100); Basophils Percent Auto 0.3 % (0-2); Eosinophils Absolute Auto 0 /uL (0-450); Eosinophils Percent Auto 0.2 % (2-4); Hemoglobin 12.8 g/dL (13.5-17.5); Lymphocytes Absolute Auto 1600 /uL (1100-4500); Lymphocytes Percent Auto 16.4 % (25-40); Mean Corpuscular HGB Conc 33.7 % (30-36); Mean Corpuscular Hemoglobin 31.7 PG (26-34); Mean Corpuscular Volume 94.2 fL (80-100); Monocytes Absolute Auto 1000 /uL (0-900); Monocytes Percent Auto 10.4 % (3-14); Neutrophils Absolute Auto 7000 /uL (1500-7000); Neutrophils Percent Auto 72.7 % (50-75); Platelet Count 153 X10^3/uL (150-400); Red Blood Cell Count 4.04 X10^6/uL (4.5-5.9); Red Cell Distribution Width 17.2 % (11.6-14.8); White Blood Cell Count 9.6 X10^3/uL (4.5-11.0)
[2024-01-20 10:19] LABS: Alanine Aminotransferase 11 IU/L (<50); Albumin 3.4 g/dL (3.5-5.0); Albumin Globulin Ratio 1.4 (1.0-2.8); Alkaline Phosphatase 732 U/L (38-126); Aspartate Aminotransferase 24 IU/L (17-59); BUN Creatinine Ratio 37.5 (6-22); Bilirubin Total 0.8 mg/dL (0.2-1.3); Blood Urea Nitrogen 27 mg/dL (9-20); Calcium 8.6 mg/dL (8.4-10.2); Carbon Dioxide 27 mmol/L (22-32); Chloride 108 mmol/L (98-107); Estimated Glomerular Filt Rate > 60 mL/min (>60); Globulin 2.5 g/dL (1.7-4.1); Glucose 94 mg/dL (80-110); HEMOLYSIS < 15 (0-50); Potassium 3.9 mmol/L (3.4-5.1); Sodium 138 mmol/L (137-145); Total Protein 5.9 g/dL (6.3-8.2)
[2024-01-20 11:37] LABS: Prostate Specific Antigen 210 ng/mL (0.10-4.00)
== END ==
LOC: LAB 09:00
PROVIDERS: Family Provider Family Medicine; PCP Family Medicine; Referring Provider Internal Medicine Medical Oncology; Visit Provider Internal Medicine Medical Oncology
DX: C61 Malignant neoplasm of prostate (principal)
CPT/HCPCS: 36415; 80053; 84153; 85025

== ENCOUNTER 2024-02-08 15:41 | Emergency (ER) | payer MEDICARE, SELFPAY ==
[2024-02-08] VITALS (7 sets, daily range): BP systolic 117–123; BP diastolic 60–69; PULSE 75–86; RESP 16–78; TEMP 37; O2SAT 95–98; BMI 22.4
--- NOTE | 2024-02-08 16:12 | ED.GENADULT ---
HPI - General Adult General Chief complaint: Abdominal Pain Stated complaint: T-3 pain in groin area/ HX of prostate cancer Time Seen by Provider: 02/08/24 16:00 Source: patient Mode of arrival: Wheelchair History of Present Illness HPI narrative: Patient is a 73-year-old male who is here for evaluation of pain in his right hip/groin area. No specific trauma. He states it has been painful over the past couple days. No urinary symptoms. No testicular pain. No change in bowel habits. No prior abdominal surgeries. He states that the discomfort is when he moves his right leg forward. It causes him quite a bit of discomfort. Has not tried anything for symptoms prior to arrival. He does have history of prostate cancer. Related Data Home Medications Medication Instructions Recorded Confirmed epinephrine 0.3 mg/0.3 mL 0.3 mg PRN PRN Allergic Reaction 08/21/19 12/30/23 injection, auto-injector (EpiPen) leuprolide (3 month) 11.25 mg (3 11.25 mg IM [id number] 08/31/23 12/30/23 month) intramuscular syringe kit (Lupron Depot) Previous Rx's Medication Instructions Recorded warfarin 2 mg tablet 2 mg PO DAILY #90 tabs 01/11/24 warfarin 5 mg tablet 5 mg PO DAILY #90 tabs 01/11/24 Allergies Allergy/AdvReac Type Severity Reaction Status Date / Time bee venom protein (honey bee) Allergy Unknown Verified 12/30/23 07:57 Review of Systems Gastrointestinal Gastrointestinal: Reports system reviewed and no additional complaints, except as documented Genitourinary Genitourinary: Reports system reviewed and no additional complaints, except as documented Musculoskeletal Musculoskeletal: Reports system reviewed and no additional complaints, except as documented Integumentary/Breasts Skin/Breast: Reports system reviewed and no additional complaints, except as documented Patient History Medical History Seborrheic keratosis Cellulitis Sacral region somatic dysfunction Pelvic somatic dysfunction Prostate cancer metastatic to bone Warfarin anticoagulation Leg wound, left Cervical somatic dysfunction Physician orders for life-sustaining treatment (POLST) form indicates patient wish for rr-kpm-xjbgwanumna status Back stiffness Neck pain Neoplasm of prostate as incidental histologic finding in more than 5% of resected tissue (T1b) Surgical History History of total knee arthroplasty History of orthopedic surgery Social History Smoking Status: Never smoker alcohol intake: current substance use type: does not use Smoking Status: Never smoker alcohol intake frequency: holidays/special occasions only Substance Use Type: does not use Exam Initial Vital Signs Initial Vital Signs: Vital Signs Temperature 98.6 F 02/08/24 15:50 Pulse Rate 86 02/08/24 15:50 Respiratory Rate 16 02/08/24 15:50 Blood Pressure 123/64 02/08/24 15:50 Pulse Oximetry 97 02/08/24 15:50 Oxygen Delivery Method Room Air 02/08/24 15:50 GI Inspection: normal to inspection and non-distended Palpation: soft, No firm, No guarding and No tender External: normal external exam Scrotum: scrotum normal and no inguinal hernias Testes: normal Skin General: no rashes or lesions noted Extrem Other: Patient has right-sided proximal femur tenderness with forward flexion of the right hip. He was able to flex the knee. Course Orders Ordered: ED Orders 02/08/24 16:13 XR hip w pel if done RT 2V Stat Vital Signs Vital signs: Vital Signs - 8 hr 02/08/24 15:50 02/08/24 16:02 02/08/24 16:16 Temperature 98.6 F Pulse Rate 86 82 Respiratory Rate 16 78 H 23 Blood Pressure 123/64 120/60 Pulse Oximetry 97 98 Oxygen Delivery Method Room Air Room Air 02/08/24 16:17 02/08/24 16:17 02/08/24 16:30 Temperature Pulse Rate 79 Respiratory Rate 25 H Blood Pressure 123/68 117/69 Pulse Oximetry 96 Oxygen Delivery Method 02/08/24 16:30 02/08/24 17:00 02/08/24 17:00 Temperature Pulse Rate 77 75 Respiratory Rate 21 22 Blood Pressure 121/68 Pulse Oximetry 96 95 Oxygen Delivery Method Medical Decision Making Imaging Data Extremity x-ray #1: Radiologist's Impression: PROCEDURE: XR HIP W PEL IF DONE RT 2V INDICATIONS: R hip pain eval for fracture TECHNIQUE: AP pelvis with lateral view(s) of the right hip(s). COMPARISON: NM, NM BONE SCAN WHOLE BODY, 08/18/2022, 15:27. CT, CT CHEST ABD PEL W CON, 08/18/2022, 13:55. FINDINGS: Bones: No fractures or dislocations. Pelvic ring appears intact. Multiple sclerotic foci consistent with known metastatic disease. Moderate to severe bilateral degenerative hip joint space narrowing. Soft tissues: The visualized bowel gas pattern is normal. No suspicious soft tissue calcifications. IMPRESSION: No visualized acute fracture or dislocation. However, if clinical concern and/or pain persist, short interval imaging followup in 7-10 days is recommended, as occult injury cannot be definitively excluded. MDM Narrative Medical decision making narrative: X-ray shows no signs of fracture. His physical exam today is most consistent with a groin strain. There was no indication of testicular pain. No indication of hernia. He has no penile pain. I discussed this with him. Discussed conservative measures to include heat/ice. Discussed return precautions. He expressed understanding and agreement. Discharge Plan Departure Patient Disposition: Home Clinical Impression: Strain of flexor muscle of right hip Instructions: Muscle Strain Activity Restrictions/Additional Instructions: X-ray shows no signs of fracture nor dislocation. Recommend conservative measures to include anti-inflammatories and ice. Avoiding activities that make your symptoms worse. Contact your primary doctor for follow-up. Return to the emergency department for new symptoms. Prescriptions: No Action warfarin 5 mg tablet 5 mg PO DAILY Qty: 90 3RF warfarin 2 mg tablet 2 mg PO DAILY Qty: 90 3RF Lupron Depot (3 month) 11.25 mg syringe kit 11.25 mg IM [id number] epinephrine [EpiPen] 0.3 mg/0.3 mL Auto-Injector 0.3 mg PRN PRN (Reason: Allergic Reaction) Referrals: Viky Alcala DO [Primary Care Provider] - Stand Alone Forms: Patient Portal/API
== END 2024-02-08 17:39 | disposition home or self-care (01) ==
PROVIDERS: Emergency Provider Emergency Medicine; Family Provider Family Medicine; PCP Family Medicine
DX: S76.011A Strain of muscle, fascia and tendon of right hip, initial encounter (principal)
CPT/HCPCS: 73502; 99281; 99283

== ENCOUNTER → 2024-02-13 09:24 | Outpatient (CLI) | payer MEDICARE, SELFPAY ==
[2024-02-13 11:04] LABS: Add Manual Diff / Slide Review NO; Basophils Absolute Auto 0 /uL (0-100); Basophils Percent Auto 0.5 % (0-2); Eosinophils Absolute Auto 100 /uL (0-450); Eosinophils Percent Auto 0.7 % (2-4); Hemoglobin 12.4 g/dL (13.5-17.5); Lymphocytes Absolute Auto 800 /uL (1100-4500); Lymphocytes Percent Auto 9.6 % (25-40); Mean Corpuscular HGB Conc 33.5 % (30-36); Mean Corpuscular Volume 95.6 fL (80-100); Monocytes Absolute Auto 1300 /uL (0-900); Monocytes Percent Auto 14.9 % (3-14); Neutrophils Absolute Auto 6400 /uL (1500-7000); Neutrophils Percent Auto 74.3 % (50-75); Platelet Count 269 X10^3/uL (150-400); Red Blood Cell Count 3.87 X10^6/uL (4.5-5.9); Red Cell Distribution Width 20.6 % (11.6-14.8); White Blood Cell Count 8.6 X10^3/uL (4.5-11.0)
[2024-02-13 11:18] LABS: Anisocytosis 2+
[2024-02-13 11:20] LABS: Alanine Aminotransferase 11 IU/L (<50); Albumin 3.6 g/dL (3.5-5.0); Albumin Globulin Ratio 1.3 (1.0-2.8); Alkaline Phosphatase 555 U/L (38-126); Aspartate Aminotransferase 22 IU/L (17-59); BUN Creatinine Ratio 42.4 (6-22); Bilirubin Total 0.6 mg/dL (0.2-1.3); Blood Urea Nitrogen 28 mg/dL (9-20); Calcium 8.6 mg/dL (8.4-10.2); Carbon Dioxide 29 mmol/L (22-32); Chloride 106 mmol/L (98-107); Estimated Glomerular Filt Rate > 60 mL/min (>60); Globulin 2.8 g/dL (1.7-4.1); Glucose 99 mg/dL (80-110); HEMOLYSIS < 15 (0-50); Potassium 3.6 mmol/L (3.4-5.1); Sodium 138 mmol/L (137-145); Total Protein 6.4 g/dL (6.3-8.2)
[2024-02-13 12:39] LABS: Prostate Specific Antigen 146 ng/mL (0.10-4.00)
== END ==
LOC: LAB 09:27
PROVIDERS: Family Provider Family Medicine; PCP Family Medicine; Referring Provider Internal Medicine Medical Oncology; Visit Provider Internal Medicine Medical Oncology
DX: C61 Malignant neoplasm of prostate (principal)
CPT/HCPCS: 36415; 80053; 84153; 85025

== ENCOUNTER 2024-02-23 13:22 | Outpatient (RCR) | payer MEDICARE, SELFPAY ==
--- NOTE | 2024-02-23 17:20 | PT.OIE ---
Current Diagnoses Malignant neoplasm of prostate (02/23/24) Weakness (02/23/24) Past Medical History (Last Reviewed 02/08/24 @ 16:19 by Milton Keene DO) Back stiffness Cellulitis Cervical somatic dysfunction Leg wound, left Neck pain Neoplasm of prostate as incidental histologic finding in more than 5% of resected tissue (T1b) Pelvic somatic dysfunction Physician orders for life-sustaining treatment (POLST) form indicates patient wish for nj-ttr-jgkymukfnde status Prostate cancer metastatic to bone Sacral region somatic dysfunction Seborrheic keratosis Warfarin anticoagulation Past Surgical History (Last Reviewed 08/30/23 @ 06:32 by Jodi Bryan DO) History of orthopedic surgery History of total knee arthroplasty Visit Care Team Role Provider Type Viky Alcala DO Primary Care Provider Physician Specialty: [facility] Address: [address] [place] [address], [address], [facility] Email: [email or web address] Reginaldo High DO Family Provider Physician Specialty: [facility] Address: [address] [place] [address], [id number] Email: Milton Little MD Attending Provider Non-Staff Referring Provider Specialty: Medical Address: [address] [place] [address], [id number] Email: Physical Therapy Initial Evaluation PT-OP-A Visit Information Start: 02/23/24 17:04 Freq: Status: Active Protocol: Document 02/23/24 13:45 DCW (Rec: 02/23/24 17:07 DCW [id number]) Out-Patient Physical Therapy Visit Information Visit Information Visit Type Initial Evaluation Visit Start Time 13:45 Visit Stop Time 14:30 Visit Number 1 Number of MEDICAL CODING SPECIALIST Visits 0 Evaluation Information Evaluation Date 02/23/24 PT-OP-B Current Condition Start: 02/23/24 17:04 Freq: Status: Active Protocol: Document 02/23/24 13:45 DCW (Rec: 02/23/24 17:20 DCW [id number]) Current Condition History of Current Condition Onset Date Four week history Current Complaints sudden weakness and inability to walk History of Current Condition Pt is a 73 year old male presenting with a complex medical history. Pt has been undergoing chemotherapy off and on for the past ten years secondary to Prostate cancer. Four weeks ago, he suddenly lost all strength in his legs and could no longer stand or walk. After meeting with his oncologist 02/14/24, he was sent to the ED, and scans revealed that his cancer had metasizied to his right pelvis , which was causing his sudden weakness and limitations to gait. Pt has made the decision to stop chemo. After all this dx testing, starting last weekend, his strength and walking returned, and is overall feeling pretty well. Was previously walking with a FWW or crutches, but today comes in without an assistive device with no loss of balance . PT-OP-C Subjective Start: 02/23/24 17:04 Freq: Status: Active Protocol: Document 02/23/24 13:45 DCW (Rec: 02/23/24 17:07 DCW [id number]) OP-PT Subjective Patient Comments Patient Comments I don't really know what you' re supposed to be doing for me . Patient Reported Progress Improving PT-OP-D Balance Start: 02/23/24 17:04 Freq: Status: Active Protocol: Document 02/23/24 13:45 DCW (Rec: 02/23/24 17:20 DCW [id number]) Balance Tests Moody Balance Test Moody Balance Test Score 54/56 Moody Impairment Rating 1 to 19% Impaired (Score 45-55 ) Moody Balance Assessment Evaluation Sitting to Standing Ability Independent w/out Hands Unsupported Stance Safely- 2 minutes Sitting Unsupported, Feet on Floor Safely- 2 minutes Standing to Sitting Ability Safely, Minimal Hand Use Transfer Ability Safely, Minimal Hand Use Unsupported Stance- Eyes Closed Safely, 10 seconds Unsupported Stance- Eyes Open Independent, 1 minute Reaching Forward Standing Safely, 5 inches Pick- Up Object From Floor Independent/Safe Look Behind Shoulder - Standing Shifts Weight Unilateral Turning 360 Degrees Turns Bilateral, < 4 secs Unsupported Stance, Alternating Feet on (I)- 8 Steps in 20 secs Stair Unsupported Tandem Stance Achieves Tandem Unilateral Leg Stance Lifts Leg/Holds 10 secs Total Score Moody Total Score (out of 56 points) 54 Moody Impairment Rating 1 to 19% Impaired (Score 45-55 ) PT-OP-E Functional Tests Start: 02/23/24 17:04 Freq: Status: Active Protocol: Document 02/23/24 13:45 DCW (Rec: 02/23/24 17:20 DCW [id number]) Functional Tests Dynamic Gait Index (DGI) Score 21/24 Five Times Sit to Stand Test Score 16.99 Comments Low table, no UE assist Functional Gait Assessment Score 27/30 PT-OP-M Strength Start: 02/23/24 17:04 Freq: Status: Active Protocol: Document 02/23/24 13:45 DCW (Rec: 02/23/24 17:20 DCW [id number]) Hip Strength Hip Manual Muscle Testing Right Flexion (L2) 4 Good Extension (S1) 4+ Good+ Abduction 4 Good Adduction 4- Good- External Rotation 4- Good- Internal Rotation 4- Good- Left Flexion (L2) 4 Good Extension (S1) 4+ Good+ Abduction 4- Good- Adduction 4- Good- External Rotation 4 Good Internal Rotation 4 Good Knee Strength Knee Manual Muscle Testing Right Flexion (S2) 4 Good Extension (L3) 4 Good Left Flexion (S2) 4 Good Extension (L3) 4 Good PT-OP-T Assessment and Plan Start: 02/23/24 17:04 Freq: Status: Active Protocol: Document 02/23/24 13:45 DCW (Rec: 02/23/24 17:20 DCW [id number]) Physical Therapy Assessment Assessment Summary Assessment Pt presents to skilled therapy initial evaluation with no limitations to gait or balance . Pt has made great progress over the past week, going from weakness and inability to walk without an AD to no complaints and is largely asymptomatic today. Discussed pt plans, and pt noted that he feels pretty comfortable with just getting back to his normal activities, does not feel that physical therapy is needed at this time. Therapist discussed that pt may benefit from adding simple quad/glute strengthening, such as step- ups and sit<->stands at home. Patient and therapist agree to discharge from skilled PT at this time. Pt was informed that he would likely benefit from further PT is his symptoms changed or worsened, or he goes through another episode of LE weakness. Physical Therapy Plan Discharge Physical Therapy Discharge Comments Eval only, no further skilled PT indicated at this time.
--- NOTE | 2024-02-23 17:20 | PT.OPPOC ---
Physical, Occupational & Speech Therapy At [facility] Current Diagnoses Malignant neoplasm of prostate (02/23/24) Weakness (02/23/24) Visit Care Team Role Provider Type Viky Alcala DO Primary Care Provider Physician Specialty: Family Practice Address: [address] [place] [address], [address], [place], [address] Email: [email or web address] Reginaldo High DO Family Provider Physician Specialty: Family Practice Address: [address] [place] [address], [id number] Email: Milton Little MD Attending Provider Non-Staff Referring Provider Specialty: Medical Address: [address] [place] [address], [id number] Email: Plan Of Care PT-OP-T Assessment and Plan Start: 02/23/24 17:04 Freq: Status: Active Protocol: Document 02/23/24 13:45 DCW (Rec: 02/23/24 17:20 DCW [id number]) Physical Therapy Assessment Assessment Summary Assessment Pt presents to skilled therapy initial evaluation with no limitations to gait or balance . Pt has made great progress over the past week, going from weakness and inability to walk without an AD to no complaints and is largely asymptomatic today. Discussed pt plans, and pt noted that he feels pretty comfortable with just getting back to his normal activities, does not feel that physical therapy is needed at this time. Therapist discussed that pt may benefit from adding simple quad/glute strengthening, such as step- ups and sit<->stands at home. Patient and therapist agree to discharge from skilled PT at this time. Pt was informed that he would likely benefit from further PT is his symptoms changed or worsened, or he goes through another episode of LE weakness. Physical Therapy Plan Discharge Physical Therapy Discharge Comments Eval only, no further skilled PT indicated at this time. Electronically Signed by: Jose A Saha, PT 02/23/24 [id number] If you are in agreement with this Plan of Care, please return a signed and dated copy. I have reviewed this Plan of Care and certify that the skilled therapy services above are required to meet the patient?s needs. Physician Signature Date Printed Name and Credentials Clinical Instructor Signature Printed Name and Credentials
== END 2024-02-27 11:11 | disposition home or self-care (01) ==
LOC: PHYS 13:22
PROVIDERS: Family Provider Family Medicine; PCP Family Medicine; Referring Provider Internal Medicine Medical Oncology; Visit Provider Internal Medicine Medical Oncology
DX: R53.1 Weakness (principal); C61 Malignant neoplasm of prostate
CPT/HCPCS: 97161

== ENCOUNTER → 2024-04-17 08:54 | Outpatient (CLI) | payer MEDICARE, SELFPAY ==
[2024-04-17 09:55] LABS: Add Manual Diff / Slide Review NO; Basophils Absolute Auto 0 /uL (0-100); Basophils Percent Auto 0.5 % (0-2); Eosinophils Absolute Auto 100 /uL (0-450); Eosinophils Percent Auto 3.5 % (2-4); Hematocrit 39.1 % (41-53); Hemoglobin 13.1 g/dL (13.5-17.5); Lymphocytes Absolute Auto 800 /uL (1100-4500); Lymphocytes Percent Auto 19.8 % (25-40); Mean Corpuscular HGB Conc 33.5 % (30-36); Mean Corpuscular Volume 92.3 fL (80-100); Monocytes Absolute Auto 600 /uL (0-900); Monocytes Percent Auto 14.3 % (3-14); Neutrophils Absolute Auto 2600 /uL (1500-7000); Neutrophils Percent Auto 61.9 % (50-75); Platelet Count 194 X10^3/uL (150-400); Red Blood Cell Count 4.24 X10^6/uL (4.5-5.9); Red Cell Distribution Width 14.9 % (11.6-14.8); White Blood Cell Count 4.2 X10^3/uL (4.5-11.0)
[2024-04-17 10:04] LABS: INR 1.6 (0.9-1.3); Prothrombin Time 18.4 SECONDS (9.4-12.5)
[2024-04-17 10:07] LABS: PTT Partial Thromboplastin Tim 35 SECONDS (25.1-36.5)
[2024-04-17 10:25] LABS: Alanine Aminotransferase 10 IU/L (<50); Albumin 3.6 g/dL (3.5-5.0); Albumin Globulin Ratio 1.2 (1.0-2.8); Alkaline Phosphatase 1431 U/L (38-126); Aspartate Aminotransferase 48 IU/L (17-59); Bilirubin Total 0.8 mg/dL (0.2-1.3); Blood Urea Nitrogen 18 mg/dL (9-20); Calcium 8.6 mg/dL (8.4-10.2); Carbon Dioxide 28 mmol/L (22-32); Chloride 104 mmol/L (98-107); Estimated Glomerular Filt Rate > 60 mL/min (>60); Globulin 3.1 g/dL (1.7-4.1); Glucose 152 mg/dL (80-110); HEMOLYSIS < 15 (0-50); Lactate Dehydrogenase 375 U/L (120-246); Potassium 4.1 mmol/L (3.4-5.1); Sodium 138 mmol/L (137-145); Total Protein 6.7 g/dL (6.3-8.2)
[2024-04-17 11:30] LABS: Prostate Specific Antigen 280 ng/mL (0.10-4.00)
== END ==
PROVIDERS: Family Provider Family Medicine; PCP Family Medicine; Referring Provider Internal Medicine Medical Oncology; Visit Provider Internal Medicine Medical Oncology
DX: C61 Malignant neoplasm of prostate (principal); I82.90 Acute embolism and thrombosis of unspecified vein; D68.51 Activated protein C resistance
CPT/HCPCS: 36415; 80053; 83615; 84153; 85025; 85610; 85730

== ENCOUNTER 2024-04-21 02:43 | Emergency (ER) | payer MEDICARE, SELFPAY ==
[2024-04-21] VITALS (14 sets, daily range): BP systolic 122–150; BP diastolic 61–72; PULSE 78–90; RESP 16–31; TEMP 36.6–37.9; O2SAT 93–96; BMI 21.7
[2024-04-21 03:46] LABS: Add Manual Diff / Slide Review NO; Basophils Absolute Auto 0 /uL (0-100); Basophils Percent Auto 0.3 % (0-2); Eosinophils Absolute Auto 100 /uL (0-450); Eosinophils Percent Auto 2.3 % (2-4); Hematocrit 41.2 % (41-53); Hemoglobin 13.8 g/dL (13.5-17.5); Lymphocytes Absolute Auto 800 /uL (1100-4500); Lymphocytes Percent Auto 14.2 % (25-40); Mean Corpuscular HGB Conc 33.5 % (30-36); Mean Corpuscular Hemoglobin 30.6 PG (26-34); Mean Corpuscular Volume 91.5 fL (80-100); Monocytes Absolute Auto 900 /uL (0-900); Monocytes Percent Auto 15.7 % (3-14); Neutrophils Absolute Auto 4000 /uL (1500-7000); Neutrophils Percent Auto 67.5 % (50-75); Platelet Count 177 X10^3/uL (150-400); Red Cell Distribution Width 14.6 % (11.6-14.8)
[2024-04-21 03:57] LABS: Alanine Aminotransferase 10 IU/L (<50); Albumin 3.9 g/dL (3.5-5.0); Albumin Globulin Ratio 1.1 (1.0-2.8); Alkaline Phosphatase 1373 U/L (38-126); Aspartate Aminotransferase 35 IU/L (17-59); BUN Creatinine Ratio 23.6 (6-22); Bilirubin Total 1.2 mg/dL (0.2-1.3); Blood Urea Nitrogen 17 mg/dL (9-20); Calcium 9.1 mg/dL (8.4-10.2); Carbon Dioxide 27 mmol/L (22-32); Chloride 100 mmol/L (98-107); Estimated Glomerular Filt Rate > 60 mL/min (>60); Globulin 3.4 g/dL (1.7-4.1); Glucose 96 mg/dL (80-110); HEMOLYSIS < 15 (0-50); Lipase 42 U/L (23-300); Potassium 4.3 mmol/L (3.4-5.1); Sodium 134 mmol/L (137-145); Total Protein 7.3 g/dL (6.3-8.2)
--- NOTE | 2024-04-21 04:51 | ED_ITS ---
HPI - Abdominal Pain <Ronny Quintero MD - Last Filed: 04/21/24 16:12> General Chief Complaint: Abdominal Pain Stated Complaint: severe abd pain, unable to urinate Time Seen by Provider: 04/21/24 03:18 Source: patient and family Mode of arrival: Ambulatory History of Present Illness HPI narrative: 73-year-old male with history of stage IV prostate cancer, prior remote prostatectomy, subsequent diagnosis of metastatic disease, most recently started Pluvicto (Chary-177 PSMA radionuclide therapy) thru [facility], had 1st infusion treatment 2 days ago . Complains suprapubic area discomfort since yesterday. Feels like he is unable to empty his bladder. He feels like he might be constipated, last bowel movement a few days ago. He denies fevers and chills. Related Data Home Medications Medication Instructions Recorded Confirmed epinephrine 0.3 mg/0.3 mL 0.3 mg PRN PRN Allergic Reaction 08/21/19 12/30/23 injection, auto-injector (EpiPen) leuprolide (3 month) 11.25 mg (3 11.25 mg IM [id number] 08/31/23 12/30/23 month) intramuscular syringe kit (Lupron Depot) Previous Rx's Medication Instructions Recorded warfarin 2 mg tablet 2 mg PO DAILY #90 tabs 01/11/24 warfarin 5 mg tablet 5 mg PO DAILY #90 tabs 01/11/24 Allergies Allergy/AdvReac Type Severity Reaction Status Date / Time bee venom protein (honey bee) Allergy Unknown Verified 12/30/23 07:57 Review of Systems <Ronny Quintero MD - Last Filed: 04/21/24 16:12> Review of Systems Narrative: per HPI Patient History <Ronny Quintero MD - Last Filed: 04/21/24 16:12> Medical History Seborrheic keratosis Cellulitis Sacral region somatic dysfunction Pelvic somatic dysfunction Prostate cancer metastatic to bone Warfarin anticoagulation Leg wound, left Cervical somatic dysfunction Physician orders for life-sustaining treatment (POLST) form indicates patient wish for me-qhe-txcyhmulmqi status Back stiffness Neck pain Neoplasm of prostate as incidental histologic finding in more than 5% of resected tissue (T1b) Surgical History History of total knee arthroplasty History of orthopedic surgery Social History Smoking Status: Never smoker alcohol intake: current substance use type: does not use Smoking Status: Never smoker alcohol intake frequency: holidays/special occasions only Substance Use Type: does not use Exam <Ronny Quintero MD - Last Filed: 04/21/24 16:12> Narrative Exam Narrative: GENERAL: Well-developed patient, in mild distress. HEAD: Atraumatic. Normocephalic. EYES: Pupils equal round and reactive. Extraocular motions intact. No scleral icterus. No injection or drainage. ENT: Nose without bleeding, purulent drainage. Throat without erythema, tonsillar hypertrophy or exudate. Airway patent. NECK: Trachea midline. Non tender CARDIOVASCULAR: Regular rate and rhythm without murmurs, gallops, or rubs. RESPIRATORY: Clear to auscultation. Breath sounds equal bilaterally. No wheezes, rales, or rhonchi. GASTROINTESTINAL: Abdomen soft, mild suprapubic area tenderness, no guarding or rebound, nondistended. EXTREMITIES: No edema or joint tenderness. BACK: Nontender without deformity or crepitance. No flank tenderness. NEURO: AOx3. Nonfocal neuro exam. SKIN: No rash or erythema of visible areas Initial Vital Signs Initial Vital Signs: Vital Signs Temperature 100.3 F H 04/21/24 03:17 Pulse Rate 90 04/21/24 03:17 Respiratory Rate 20 04/21/24 03:17 Blood Pressure 122/61 04/21/24 03:17 Pulse Oximetry 96 04/21/24 03:17 Oxygen Delivery Method Room Air 04/21/24 03:17 <Marizol Hernández DO - Last Filed: 04/21/24 18:18> Initial Vital Signs Initial Vital Signs: Vital Signs Temperature 100.3 F H 04/21/24 03:17 Pulse Rate 90 04/21/24 03:17 Respiratory Rate 20 04/21/24 03:17 Blood Pressure 122/61 04/21/24 03:17 Pulse Oximetry 96 04/21/24 03:17 Oxygen Delivery Method Room Air 04/21/24 03:17 Course <Ronny Quintero MD - Last Filed: 04/21/24 16:12> Orders Ordered: Discontinued Medications Sodium Chloride (Normal Saline 0.9%) 1,000 mls @ 1,000 mls/hr IV BOLUS ONE Stop: 04/21/24 08:07 Last Infusion: 04/21/24 08:56 Dose: Infused Documented By: Admin: 04/21/24 07:20 Dose: 1,000 mls/hr Documented By: DELVIS Magnesium Citrate (Magnesium Citrate 300 Ml Solution) 300 ml PO NOW ONE Stop: 04/21/24 08:43 Last Admin: 04/21/24 08:57 Dose: 300 ml Documented By: DELVIS Vital Signs Vital signs: Vital Signs - 8 hr 04/21/24 08:30 04/21/24 08:30 Temperature 97.8 F Pulse Rate 79 Respiratory Rate 19 Blood Pressure 132/61 Pulse Oximetry 95 <Marizol Hernández DO - Last Filed: 04/21/24 18:18> Orders Ordered: Discontinued Medications Sodium Chloride (Normal Saline 0.9%) 1,000 mls @ 1,000 mls/hr IV BOLUS ONE Stop: 04/21/24 08:07 Last Infusion: 04/21/24 08:56 Dose: Infused Documented By: Admin: 04/21/24 07:20 Dose: 1,000 mls/hr Documented By: DELVIS Magnesium Citrate (Magnesium Citrate 300 Ml Solution) 300 ml PO NOW ONE Stop: 04/21/24 08:43 Last Admin: 04/21/24 08:57 Dose: 300 ml Documented By: DELVIS Vital Signs Vital signs: Vital Signs - 8 hr 04/21/24 08:30 04/21/24 08:30 Temperature 97.8 F Pulse Rate 79 Respiratory Rate 19 Blood Pressure 132/61 Pulse Oximetry 95 MDM - Abdominal Pain <Ronny Quintero MD - Last Filed: 04/21/24 16:12> Lab Data 04/21/24 03:38 04/21/24 03:38 Labs: Lab Results 04/21/24 04/21/24 Range/Units 03:38 07:10 WBC 6.0 (4.5-11.0) X10^3/uL RBC 4.50 (4.5-5.9) X10^6/uL Hgb 13.8 (13.5-17.5) g/dL Hct 41.2 (41-53) % MCV 91.5 (80-100) fL MCH 30.6 (26-34) PG MCHC 33.5 (30-36) % RDW 14.6 (11.6-14.8) % Plt Count 177 (150-400) X10^3/uL Neut % (Auto) 67.5 (50-75) % Lymph % (Auto) 14.2 L (25-40) % Gooding % (Auto) 15.7 H (3-14) % Eos % (Auto) 2.3 (2-4) % Baso % (Auto) 0.3 (0-2) % Neut # (Auto) 4000 (1419-3778) /uL Lymph # (Auto) 800 L (2968-6550) /uL Gooding # (Auto) 900 (0-900) /uL Eos # (Auto) 100 (0-450) /uL Baso # (Auto) 0 (0-100) /uL Sodium 134 L (137-145) mmol/L Potassium 4.3 (3.4-5.1) mmol/L Chloride 100 (98-107) mmol/L Carbon Dioxide 27 (22-32) mmol/L BUN 17 (9-20) mg/dL Creatinine 0.72 (0.66-1.25) mg/dL Estimated GFR > 60 (>60) mL/min BUN/Creatinine Ratio 23.6 H (6-22) Glucose 96 (80-110) mg/dL Calcium 9.1 (8.4-10.2) mg/dL Total Bilirubin 1.2 (0.2-1.3) mg/dL AST 35 (17-59) IU/L ALT 10 (<50) IU/L Alkaline Phosphatase 1373 H (38-126) U/L Total Protein 7.3 (6.3-8.2) g/dL Albumin 3.9 (3.5-5.0) g/dL Globulin 3.4 (1.7-4.1) g/dL Albumin/Globulin Ratio 1.1 (1.0-2.8) Lipase 42 (23-300) U/L Urine Color Yellow Urine Appearance Clear Urine pH 5.0 (4.5-8.0) Ur Specific Paia >=1.030 H (1.000-1.035) Urine Protein 1+ H (Negative) Urine Glucose (UA) Negative (Negative) g/dL Urine Ketones 3+ H (NEGATIVE) Urine Occult Blood 3+ H (Negative) Urine Nitrate Negative (Negative) Urine Bilirubin 2+ H (NEGATIVE) Ur Bilirubin Confirm Positive H (Negative) Urine Urobilinogen 1.0 (0.2) E.U./dL Ur Leukocyte Esterase Negative (NEGATIVE) Urine RBC 5-10/hpf H (0-5/HPF) Urine WBC 5-10/hpf H (0-5/HPF) Ur Squamous Epith Cells 0-1 /hpf (0-5/HPF) Calcium Oxalate Crystal Moderate H Amorphous Sediment 2+ Urine Bacteria Few (2-10) H (None) Ur Culture Indicated? Specimen cultured Vol Urine Centrifuged 10ml (spun) MDM Narrative Medical decision making narrative: 73-year-old male with stage IV metastatic prostate cancer, 1st infusion radionuclide therapy 2 days ago, with suprapubic discomfort, sensation that he can not empty his bladder, also has not had a bowel movement in few days. Afebrile, sirs screen negative. Abdomen not particularly distended, some mild tenderness suprapubic region. We discussed imaging with CT scanning, he would prefer to start instead with bladder scanning, and x-ray abdomen to look for constipation like changes. Labs pending. Lab studies unremarkable. Bladder scan low volume. Abdominal X-ray shows nonspecific bowel gas pattern. Not particularly consistent with constipation. CT abdomen and pelvis ordered, patient agreeable. 0715, CT abdomen and pelvis to be performed, urine specimen was produced with urinalysis results still pending. Signed out to Dr. Hernández <Marizol Hernández, DO - Last Filed: 04/21/24 18:18> Lab Data Labs: Lab Results 04/21/24 04/21/24 Range/Units 03:38 07:10 WBC 6.0 (4.5-11.0) X10^3/uL RBC 4.50 (4.5-5.9) X10^6/uL Hgb 13.8 (13.5-17.5) g/dL Hct 41.2 (41-53) % MCV 91.5 (80-100) fL MCH 30.6 (26-34) PG MCHC 33.5 (30-36) % RDW 14.6 (11.6-14.8) % Plt Count 177 (150-400) X10^3/uL Neut % (Auto) 67.5 (50-75) % Lymph % (Auto) 14.2 L (25-40) % Gooding % (Auto) 15.7 H (3-14) % Eos % (Auto) 2.3 (2-4) % Baso % (Auto) 0.3 (0-2) % Neut # (Auto) 4000 (4790-8997) /uL Lymph # (Auto) 800 L (2973-3890) /uL Gooding # (Auto) 900 (0-900) /uL Eos # (Auto) 100 (0-450) /uL Baso # (Auto) 0 (0-100) /uL Sodium 134 L (137-145) mmol/L Potassium 4.3 (3.4-5.1) mmol/L Chloride 100 (98-107) mmol/L Carbon Dioxide 27 (22-32) mmol/L BUN 17 (9-20) mg/dL Creatinine 0.72 (0.66-1.25) mg/dL Estimated GFR > 60 (>60) mL/min BUN/Creatinine Ratio 23.6 H (6-22) Glucose 96 (80-110) mg/dL Calcium 9.1 (8.4-10.2) mg/dL Total Bilirubin 1.2 (0.2-1.3) mg/dL AST 35 (17-59) IU/L ALT 10 (<50) IU/L Alkaline Phosphatase 1373 H (38-126) U/L Total Protein 7.3 (6.3-8.2) g/dL Albumin 3.9 (3.5-5.0) g/dL Globulin 3.4 (1.7-4.1) g/dL Albumin/Globulin Ratio 1.1 (1.0-2.8) Lipase 42 (23-300) U/L Urine Color Yellow Urine Appearance Clear Urine pH 5.0 (4.5-8.0) Ur Specific Paia >=1.030 H (1.000-1.035) Urine Protein 1+ H (Negative) Urine Glucose (UA) Negative (Negative) g/dL Urine Ketones 3+ H (NEGATIVE) Urine Occult Blood 3+ H (Negative) Urine Nitrate Negative (Negative) Urine Bilirubin 2+ H (NEGATIVE) Ur Bilirubin Confirm Positive H (Negative) Urine Urobilinogen 1.0 (0.2) E.U./dL Ur Leukocyte Esterase Negative (NEGATIVE) Urine RBC 5-10/hpf H (0-5/HPF) Urine WBC 5-10/hpf H (0-5/HPF) Ur Squamous Epith Cells 0-1 /hpf (0-5/HPF) Calcium Oxalate Crystal Moderate H Amorphous Sediment 2+ Urine Bacteria Few (2-10) H (None) Ur Culture Indicated? Specimen cultured Vol Urine Centrifuged 10ml (spun) Imaging Data CT scan - abdomen/pelvis: Radiologist's Impression: Close Abdomen/Pelvis CT (Signed) Thanh Cervantes - 04/21/24 [facility]domen X[facility]Ray (Signed[facility] Launch?Image [address] [address] [address] Scan Report Signed Patient: Patrice Ortiz MR#: [id number] : 1950 Acct:[id number] Age/Sex: 73 / M Date of Service: 04/21/24 Loc: ED Accession Number: [id number] Procedure: CT abdomen pelvis w con Ordering Provider: Ronny Quintero MD PROCEDURE: CT ABDOMEN PELVIS W CON INDICATIONS: Abdominal pain, possible bowel obstruction TECHNIQUE: After the administration of intravenous contrast, axial sections acquired from the lung bases to the pubic symphysis. Coronal and sagittal reformats were performed. For radiation dose reduction, the following was used: automated exposure control, adjustment of mA and/or kV according to patient size. COMPARISON: [facility], CT, CT ABDOMEN PELVIS W CON, 08/30/2023, 7:04. FINDINGS: Image quality: Diagnostic Lower chest: Bibasilar atelectasis/scarring. Mild wall thickening of the distal esophagus, nonspecific. Annular and coronary calcifications of the heart Liver: Unremarkable Gallbladder and biliary system: Unremarkable, nondilated Pancreas: Calcification at the tail again seen. 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 No hydronephrosis. Vessels and lymph nodes: The main portal vein is patent. Circumaortic left renal vein. No abdominal aortic aneurysm. Atherosclerotic calcifications are present. No pathologic lymphadenopathy by size criteria Bowel and peritoneum: Similar nonspecific retrocrural fat stranding. Mild gastric wall thickening not well evaluated due to under distension. There is overall moderate to large fecal loading. No acute small bowel obstruction. No pathologic ascites. Body wall: Unremarkable Pelvis: Bladder is under distended. Fossa technique changes Bones: Interval progression of sclerotic bone metastases, nearly confluent in the posterior iliac bones and lumbar spine height loss and endplate deformities of multiple vertebral bodies again seen, most notably L3 and L1 IMPRESSION: Moderate to large fecal loading. No acute small bowel obstruction. Mild wall thickening in the distal esophagus and stomach, possibly gastroesophagitis, but nonspecific on CT. Progression of osseous sclerotic metastases. Other stable and likely nonacute findings above. Dictated by: Thanh Cervantes M.D. on 04/21/2024 at 8:01 Approved by: Thanh Cervantes M.D. on 04/21/2024 at 8:06 [facility] Narrative Medical decision making narrative: 73-year-old male with stage IV metastatic prostate cancer, 1st infusion radionuclide therapy 2 days ago, with suprapubic discomfort, sensation that he can not empty his bladder, also has not had a bowel movement in few days. Afebrile, sirs screen negative. Abdomen not particularly distended, some mild tenderness suprapubic region. We discussed imaging with CT scanning, he would prefer to start instead with bladder scanning, and x-ray abdomen to look for constipation like changes. Labs pending. Lab studies unremarkable. Bladder scan low volume. Abdominal X-ray shows nonspecific bowel gas pattern. Not particularly consistent with constipation. CT abdomen and pelvis ordered, patient agreeable. 0715, CT abdomen and pelvis to be performed, urine specimen was produced with urinalysis results still pending. Signed out to Dr. Hernández 04/21/2024 Dr. Hernández 0801: Patient was signed out to myself by Dr. Quintero. Patient was seen and evaluated independently by myself imaging and labs reviewed. CT abdomen pelvis is pending. Labs show predominance of monocytes but normal white count, hemoglobin and platelets, chemistries overall are appropriate except for alk-phos which is elevated consistent with patient's history of prostate cancer and treatment. Urine shows protein ketones blood bilirubin, 5-10 RBCs 5-10 white cells 1 squamous moderate calcium oxalate crystals with few bacteria and was sent for culture but is nitrate and leukocyte esterase negative. 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 Patient received fluids here in department. He states he feels much improved symptomatic at this time. Patient is feeling improved. He does note he has been constipated. Reviewed findings from patient today. We will plan to add stool softeners to patient's regimen continue with hydration and was cultured. Reviewed patient's urine sample, he would like to wait for culture rather than starting antibiotics. I feel this is appropriate he is well-appearing overall. Reviewed his findings today he is taking MiraLax and senna. Did give him a bottle of magnesium citrate and continue to hydrate. Discharge Plan Departure Patient Disposition: Home Clinical Impression: Abdominal pain Instructions: DI for Abdominal Pain-Adult Activity Restrictions/Additional Instructions: Follow up for recheck. Your imaging today does show some stool throughout consistent with some constipation. You do have some changes to your bones which are consistent with your prostate cancer. Your urine does have a culture currently pending, this should resolve in 48-72 hours and if positive you would be contacted to start antibiotics. Continue with your MiraLax and senna. You can drink 1/2 bottle of magnesium citrate, weight 4-5 hours if you have not passed any stool you can drink the 2nd half of the bottle. Also make sure you are hydrating regularly drinking plenty of fluids. Please return for fevers, new or worsening abdominal back or flank pain, difficulty with urination, black or bloody stools, lightheadedness or passing out or other new or concerning changes. Prescriptions: No Action warfarin 5 mg tablet 5 mg PO DAILY Qty: 90 3RF warfarin 2 mg tablet 2 mg PO DAILY Qty: 90 3RF Lupron Depot (3 month) 11.25 mg syringe kit 11.25 mg IM [id number] epinephrine [EpiPen] 0.3 mg/0.3 mL Auto-Injector 0.3 mg PRN PRN (Reason: Allergic Reaction) Referrals: Viky Alcala DO [Primary Care Provider] - Stand Alone Forms: Patient Portal/API
--- NOTE | 2024-04-21 05:11 | DI.RAD.S_ITS ---
PROCEDURE: XR ABDOMEN 1V INDICATIONS: eval for constipation TECHNIQUE: One view of the abdomen acquired. COMPARISON: None. FINDINGS: Surgical changes and devices: None. Bowel: Large fecal loading. Nonspecific bowel gas pattern otherwise. Soft tissues: No suspicious calcifications Bones: Degenerative findings IMPRESSION: Large fecal loading. CT findings are separately dictated. Dictated by: Thanh Cervantes M.D. on 04/21/2024 at 7:55 Approved by: Thanh Cervantes M.D. on 04/21/2024 at 7:55
--- NOTE | 2024-04-21 06:58 | DI.CT.S_ITS ---
PROCEDURE: CT ABDOMEN PELVIS W CON INDICATIONS: Abdominal pain, possible bowel obstruction TECHNIQUE: After the administration of intravenous contrast, axial sections acquired from the lung bases to the pubic symphysis. Coronal and sagittal reformats were performed. For radiation dose reduction, the following was used: automated exposure control, adjustment of mA and/or kV according to patient size. COMPARISON: [facility], CT, CT ABDOMEN PELVIS W CON, 08/30/2023, 7:04. FINDINGS: Image quality: Diagnostic Lower chest: Bibasilar atelectasis/scarring. Mild wall thickening of the distal esophagus, nonspecific. Annular and coronary calcifications of the heart Liver: Unremarkable Gallbladder and biliary system: Unremarkable, nondilated Pancreas: Calcification at the tail again seen. 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 No hydronephrosis. Vessels and lymph nodes: The main portal vein is patent. Circumaortic left renal vein. No abdominal aortic aneurysm. Atherosclerotic calcifications are present. No pathologic lymphadenopathy by size criteria Bowel and peritoneum: Similar nonspecific retrocrural fat stranding. Mild gastric wall thickening not well evaluated due to under distension. There is overall moderate to large fecal loading. No acute small bowel obstruction. No pathologic ascites. Body wall: Unremarkable Pelvis: Bladder is under distended. Fossa technique changes Bones: Interval progression of sclerotic bone metastases, nearly confluent in the posterior iliac bones and lumbar spine height loss and endplate deformities of multiple vertebral bodies again seen, most notably L3 and L1 IMPRESSION: Moderate to large fecal loading. No acute small bowel obstruction. Mild wall thickening in the distal esophagus and stomach, possibly gastroesophagitis, but nonspecific on CT. Progression of osseous sclerotic metastases. Other stable and likely nonacute findings above. Dictated by: Thanh Cervantes M.D. on 04/21/2024 at 8:01 Approved by: Thanh Cervantes M.D. on 04/21/2024 at 8:06
[2024-04-21] MEDS: SODIUM CHLORIDE 0.9% 1,000 ML 1000 ML IV (07:20)
[2024-04-21 07:28] LABS: Appearance Urine UA CLEAR; Bilirubin Urine UA 2+ (NEGATIVE); Color Urine UA YELLOW; Glucose Urine UA NEGATIVE (Negative); Ketones Urine UA 3+ (NEGATIVE); Leukocyte Esterase Urine UA NEGATIVE (NEGATIVE); Nitrite Urine UA NEGATIVE (Negative); Occult Blood Urine UA 3+ (Negative); Protein Urine UA 1+ (Negative); Specific Gravity Urine UA >=1.030 (1.000-1.035)
[2024-04-21 07:35] LABS: RBC Urine 5-10/HPF (0-5/HPF); Urine Volume 10mL (spun)
[2024-04-21 07:36] LABS: Bacteria Urine Few (2-10); Squamous Epithelial Cell Urine 0-1 /HPF (0-5/HPF); WBC Urine 5-10/HPF (0-5/HPF)
[2024-04-21 07:37] LABS: Amorphous Sediment Urine 2+; Calcium Oxalate Crystals Urine Moderate; Culture Indicated Urine Specimen Cultured
[2024-04-21 07:39] LABS: Ictotest Urine Positive (Negative)
[2024-04-21] MEDS: MAGNESIUM CITRATE 300 ML SOLUTION PO (08:57)
== END 2024-04-21 08:59 | disposition home or self-care (01) ==
PROVIDERS: Emergency Medicine; Emergency Provider Emergency Medicine; Family Provider Family Medicine; PCP Family Medicine
DX: R10.9 Unspecified abdominal pain (principal); K59.00 Constipation, unspecified; Z79.01 Long term (current) use of anticoagulants; C61 Malignant neoplasm of prostate
CPT/HCPCS: 51798; 74018; 74177; 80053; 81001; 83690; 85025; 87077; 87086; 87186; 96360; 96361; 99284; Q9967

== ENCOUNTER → 2024-05-15 09:11 | Outpatient (CLI) | payer MEDICARE, SELFPAY ==
[2024-05-15 10:45] LABS: Add Manual Diff / Slide Review NO; Basophils Absolute Auto 0 /uL (0-100); Basophils Percent Auto 0.7 % (0-2); Eosinophils Absolute Auto 200 /uL (0-450); Hematocrit 38.5 % (41-53); Hemoglobin 12.9 g/dL (13.5-17.5); Lymphocytes Absolute Auto 800 /uL (1100-4500); Lymphocytes Percent Auto 24.6 % (25-40); Mean Corpuscular HGB Conc 33.4 % (30-36); Mean Corpuscular Hemoglobin 30.7 PG (26-34); Mean Corpuscular Volume 91.9 fL (80-100); Monocytes Absolute Auto 500 /uL (0-900); Monocytes Percent Auto 14.8 % (3-14); Neutrophils Absolute Auto 1700 /uL (1500-7000); Neutrophils Percent Auto 53.9 % (50-75); Platelet Count 165 X10^3/uL (150-400); Red Blood Cell Count 4.19 X10^6/uL (4.5-5.9); Red Cell Distribution Width 15.8 % (11.6-14.8); White Blood Cell Count 3.1 X10^3/uL (4.5-11.0)
[2024-05-15 11:01] LABS: Alanine Aminotransferase 11 IU/L (<50); Albumin 3.7 g/dL (3.5-5.0); Albumin Globulin Ratio 1.4 (1.0-2.8); Alkaline Phosphatase 1195 U/L (38-126); Aspartate Aminotransferase 32 IU/L (17-59); BUN Creatinine Ratio 25.3 (6-22); Blood Urea Nitrogen 19 mg/dL (9-20); Calcium 8.2 mg/dL (8.4-10.2); Carbon Dioxide 25 mmol/L (22-32); Chloride 106 mmol/L (98-107); Estimated Glomerular Filt Rate > 60 mL/min (>60); Globulin 2.7 g/dL (1.7-4.1); Glucose 107 mg/dL (80-110); HEMOLYSIS < 15 (0-50); Potassium 4.3 mmol/L (3.4-5.1); Sodium 137 mmol/L (137-145); Total Protein 6.4 g/dL (6.3-8.2)
[2024-05-15 12:11] LABS: Prostate Specific Antigen 231 ng/mL (0.10-4.00)
== END ==
PROVIDERS: Family Provider Family Medicine; PCP Family Medicine; Referring Provider Internal Medicine Medical Oncology; Visit Provider Internal Medicine Medical Oncology
DX: C61 Malignant neoplasm of prostate (principal)
CPT/HCPCS: 36415; 80053; 84153; 85025

== ENCOUNTER → 2024-05-18 15:05 | Outpatient (CLI) | payer MEDICARE, SELFPAY ==
[2024-05-18 15:31] LABS: Appearance Urine UA CLEAR; Bilirubin Urine UA NEGATIVE (NEGATIVE); Color Urine UA YELLOW; Glucose Urine UA NEGATIVE (Negative); Ketones Urine UA TRACE (NEGATIVE); Leukocyte Esterase Urine UA NEGATIVE (NEGATIVE); Nitrite Urine UA NEGATIVE (Negative); Occult Blood Urine UA 3+ (Negative); Protein Urine UA NEGATIVE (Negative); Specific Gravity Urine UA 1.025 (1.000-1.035); Urobilinogen Urine UA 0.2 E.U./dL (0.2); pH Urine UA 5.5 (4.5-8.0)
[2024-05-18 15:38] LABS: Bacteria Urine None Seen; RBC Urine 10-30/HPF (0-5/HPF); Squamous Epithelial Cell Urine None Seen (0-5/HPF); Urine Volume 10mL (spun); WBC Urine None Seen (0-5/HPF)
[2024-05-18 15:39] LABS: Mucus Urine 1+ (Negative)
== END ==
PROVIDERS: Family Provider Family Medicine; PCP Family Medicine
DX: C61 Malignant neoplasm of prostate (principal)
CPT/HCPCS: 81001; 87086

== ENCOUNTER → 2024-06-26 07:13 | Outpatient (CLI) | payer MEDICARE, SELFPAY ==
[2024-06-26 08:05] LABS: Add Manual Diff / Slide Review NO; Basophils Absolute Auto 0 /uL (0-100); Basophils Percent Auto 0.5 % (0-2); Eosinophils Absolute Auto 200 /uL (0-450); Eosinophils Percent Auto 6.5 % (2-4); Hematocrit 36.6 % (41-53); Hemoglobin 12.5 g/dL (13.5-17.5); Lymphocytes Absolute Auto 800 /uL (1100-4500); Lymphocytes Percent Auto 25.9 % (25-40); Mean Corpuscular HGB Conc 34.2 % (30-36); Mean Corpuscular Hemoglobin 31.4 PG (26-34); Mean Corpuscular Volume 91.8 fL (80-100); Monocytes Absolute Auto 600 /uL (0-900); Monocytes Percent Auto 17.8 % (3-14); Neutrophils Absolute Auto 1600 /uL (1500-7000); Neutrophils Percent Auto 49.3 % (50-75); Platelet Count 173 X10^3/uL (150-400); Red Blood Cell Count 3.99 X10^6/uL (4.5-5.9); Red Cell Distribution Width 17.9 % (11.6-14.8); White Blood Cell Count 3.2 X10^3/uL (4.5-11.0)
[2024-06-26 08:42] LABS: Alanine Aminotransferase 13 IU/L (<50); Albumin 3.4 g/dL (3.5-5.0); Albumin Globulin Ratio 1.5 (1.0-2.8); Alkaline Phosphatase 830 U/L (38-126); Aspartate Aminotransferase 32 IU/L (17-59); Bilirubin Total 1.1 mg/dL (0.2-1.3); Blood Urea Nitrogen 15 mg/dL (9-20); Calcium 8.9 mg/dL (8.4-10.2); Carbon Dioxide 22 mmol/L (22-32); Chloride 107 mmol/L (98-107); Estimated Glomerular Filt Rate > 60 mL/min (>60); Globulin 2.3 g/dL (1.7-4.1); Glucose 89 mg/dL (80-110); HEMOLYSIS < 15 (0-50); Sodium 136 mmol/L (137-145); Total Protein 5.7 g/dL (6.3-8.2)
[2024-06-26 08:43] LABS: Cholesterol 287 mg/dL (140-199); HDL Cholesterol 53 mg/dL (40-60); LDL Cholesterol Calculated 212 mg/dL (<100); Triglycerides 111 mg/dL (35-150)
[2024-06-26 09:56] LABS: Prostate Specific Antigen 121 ng/mL (0.10-4.00)
== END ==
PROVIDERS: Family Provider Family Medicine; PCP Family Medicine; Referring Provider Physician Assistant; Visit Provider Family Medicine
DX: E78.5 Hyperlipidemia, unspecified (principal); C61 Malignant neoplasm of prostate
CPT/HCPCS: 36415; 80053; 80061; 84153; 85025

== ENCOUNTER → 2024-08-09 09:06 | Outpatient (CLI) | payer MEDICARE, SELFPAY ==
[2024-08-09 10:15] LABS: Add Manual Diff / Slide Review NO; Basophils Absolute Auto 0 /uL (0-100); Basophils Percent Auto 0.4 % (0-2); Eosinophils Absolute Auto 200 /uL (0-450); Eosinophils Percent Auto 5.3 % (2-4); Hematocrit 38.4 % (41-53); Hemoglobin 13.2 g/dL (13.5-17.5); Lymphocytes Absolute Auto 700 /uL (1100-4500); Lymphocytes Percent Auto 19.4 % (25-40); Mean Corpuscular HGB Conc 34.3 % (30-36); Mean Corpuscular Hemoglobin 32.7 PG (26-34); Mean Corpuscular Volume 95.3 fL (80-100); Monocytes Absolute Auto 600 /uL (0-900); Monocytes Percent Auto 16.9 % (3-14); Neutrophils Absolute Auto 2200 /uL (1500-7000); Platelet Count 188 X10^3/uL (150-400); Red Blood Cell Count 4.03 X10^6/uL (4.5-5.9); White Blood Cell Count 3.8 X10^3/uL (4.5-11.0)
[2024-08-09 12:05] LABS: HEMOLYSIS < 15 (0-50); Prostate Specific Antigen 84.1 ng/mL (0.10-4.00)
[2024-08-09 15:11] LABS: Alanine Aminotransferase 14 IU/L (<50); Albumin 3.7 g/dL (3.5-5.0); Albumin Globulin Ratio 1.6 (1.0-2.8); Alkaline Phosphatase 648 U/L (38-126); Aspartate Aminotransferase 30 IU/L (17-59); BUN Creatinine Ratio 21.6 (6-22); Blood Urea Nitrogen 16 mg/dL (9-20); Carbon Dioxide 25 mmol/L (22-32); Chloride 107 mmol/L (98-107); Estimated Glomerular Filt Rate > 60 mL/min (>60); Globulin 2.3 g/dL (1.7-4.1); Glucose 83 mg/dL (80-110); Potassium 4.2 mmol/L (3.4-5.1); Sodium 139 mmol/L (137-145)
== END ==
LOC: LAB 09:07
PROVIDERS: Family Provider Family Medicine; PCP Family Medicine; Referring Provider Nurse Practitioner Family; Visit Provider Nurse Practitioner Family
DX: C61 Malignant neoplasm of prostate (principal)
CPT/HCPCS: 36415; 80053; 84153; 85025

== ENCOUNTER 2025-01-17 16:26 | Emergency (ER) | payer MEDICARE, SELFPAY ==
[2025-01-17 17:13] VITALS: BP 119/61; PULSE 82; RESP 18; TEMP 37.2; O2SAT 99; BMI 23.5
--- NOTE | 2025-01-17 17:20 | DI.RAD.S_ITS ---
PROCEDURE: XR CHEST 1V INDICATIONS: suspected sepsis TECHNIQUE: One view of the chest was acquired. COMPARISON: [facility], CR, XR CHEST 2V, 12/08/2023, 9:53. [facility], CR, XR CHEST 2V, 11/25/2023, 18:10. FINDINGS AND IMPRESSION: Mild diffuse interstitial prominence, possibly atypical infection or edema. No pleural effusions. No dense airspace consolidation on this single view study. Normal heart size. 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 Future oncologic for surveillance imaging is recommended. Dictated by: Thanh Cervantes M.D. on 01/17/2025 at 17:51 Approved by: Thanh Cervantes M.D. on 01/17/2025 at 17:52
--- NOTE | 2025-01-17 17:31 | EKG_ITS ---
[address] [address] Test Date: 2025-01-17 Pat Name: Patrice Ortiz Department: [facility] Room: Gender: Male Drug And Alcohol Counsellor: DONTE PIZARRO : 1950 Requested By: Order Number: [id number] Reading MD: Cali Monteiro MD Measurements Intervals [place] Rate: 80 P: 28 NM: 176 QRS: 6 QRSD: 84 T: 47 QT: 372 QTc: 429 Interpretive Statements Normal sinus rhythm Electronically Signed On 01-17-2025 20:01:02 PDT by Cali Monteiro MD
[2025-01-17 17:53] LABS: INR 2.8 (0.9-1.3); Prothrombin Time 30.7 SECONDS (9.4-12.5)
[2025-01-17 17:56] LABS: PTT Partial Thromboplastin Tim 41 SECONDS (25.1-36.5)
[2025-01-17 17:59] LABS: Lactate (Lactic Acid) 0.9 mmol/L (0.7-2.1)
[2025-01-17 18:00] LABS: Alanine Aminotransferase 15 IU/L (<50); Albumin 3.8 g/dL (3.5-5.0); Albumin Globulin Ratio 1.1 (1.0-2.8); Alkaline Phosphatase 924 U/L (38-126); Aspartate Aminotransferase 45 IU/L (17-59); BUN Creatinine Ratio 19.5 (6-22); Bilirubin Total 0.9 mg/dL (0.2-1.3); Blood Urea Nitrogen 16 mg/dL (9-20); Calcium 9.4 mg/dL (8.4-10.2); Carbon Dioxide 28 mmol/L (22-32); Chloride 100 mmol/L (98-107); Estimated Glomerular Filt Rate > 60 mL/min (>60); Globulin 3.4 g/dL (1.7-4.1); Glucose 111 mg/dL (80-110); HEMOLYSIS < 15 (0-50); Lipase 48 U/L (23-300); Potassium 3.9 mmol/L (3.4-5.1); Sodium 135 mmol/L (137-145); Total Protein 7.2 g/dL (6.3-8.2)
[2025-01-17 18:04] LABS: Add Manual Diff / Slide Review NO; Basophils Absolute Auto 0 /uL (0-100); Basophils Percent Auto 0.6 % (0-2); Eosinophils Absolute Auto 100 /uL (0-450); Eosinophils Percent Auto 1.4 % (2-4); Hematocrit 36.1 % (41-53); Hemoglobin 12.5 g/dL (13.5-17.5); Lymphocytes Absolute Auto 800 /uL (1100-4500); Lymphocytes Percent Auto 14.1 % (25-40); Mean Corpuscular HGB Conc 34.5 % (30-36); Mean Corpuscular Hemoglobin 32.8 PG (26-34); Mean Corpuscular Volume 95.3 fL (80-100); Monocytes Absolute Auto 800 /uL (0-900); Monocytes Percent Auto 13.5 % (3-14); Neutrophils Absolute Auto 4100 /uL (1500-7000); Neutrophils Percent Auto 70.4 % (50-75); Platelet Count 194 X10^3/uL (150-400); Red Blood Cell Count 3.79 X10^6/uL (4.5-5.9); Red Cell Distribution Width 13.2 % (11.6-14.8); White Blood Cell Count 5.8 X10^3/uL (4.5-11.0)
[2025-01-17 18:17] LABS: Procalcitonin 0.113 ng/mL (<0.5)
[2025-01-17 20:00] VITALS: BP 107/59; PULSE 80; RESP 16; TEMP 37.7
[2025-01-17 23:01] VITALS: BP 140/79; PULSE 78; RESP 17; TEMP 37; O2SAT 93
[2025-01-17 23:30] VITALS: BP 112/59; PULSE 77; RESP 14; TEMP 37.3; O2SAT 93
--- NOTE | 2025-01-17 23:50 | ED.FEVER ---
HPI - Fever General Chief Complaint: Fever Stated Complaint: sent by Jack Grijalva, fever x 21 days Time Seen by Provider: 01/17/25 23:32 History of Present Illness HPI Narrative: Patient is a 68-year-old male history of stage IV prostate cancer undergoing treatment at [facility], last treatment was in September it is supposed to be every 6 weeks. He reports that he has had fever off and on for least the last 3 weeks. It is as high as 102. He has been in touch with [facility] they recommended he come to an ED for evaluation. He really has no symptoms. He has no cough no sore throat shortness of breath abdominal pain nausea vomiting or any symptoms. He was afebrile here. Related Data Home Medications Medication Instructions Recorded Confirmed epinephrine 0.3 mg/0.3 mL 0.3 mg PRN PRN Allergic Reaction 08/21/19 07/02/24 injection, auto-injector (EpiPen) leuprolide (3 month) 11.25 mg (3 11.25 mg IM [id number] 08/31/23 07/02/24 month) intramuscular syringe kit (Lupron Depot) Previous Rx's Medication Instructions Recorded levofloxacin 500 mg tablet 500 mg PO DAILY #7 tabs 04/23/24 warfarin 2 mg tablet See Rx Instructions PO DAILY #90 10/02/24 tabs warfarin 5 mg tablet See Rx Instructions PO DAILY #90 10/02/24 tabs Allergies Allergy/AdvReac Type Severity Reaction Status Date / Time bee venom protein (honey bee) Allergy Unknown Verified 07/02/24 08:54 Patient History Medical History Lab test negative for COVID-19 virus Back pain Strain of right Achilles tendon Seborrheic keratosis Cellulitis Sacral region somatic dysfunction Pelvic somatic dysfunction Prostate cancer metastatic to bone Warfarin anticoagulation Leg wound, left Cervical somatic dysfunction Physician orders for life-sustaining treatment (POLST) form indicates patient wish for [id number] status Back stiffness Neck pain Neoplasm of prostate as incidental histologic finding in more than 5% of resected tissue (T1b) Surgical History History of total knee arthroplasty History of orthopedic surgery Social History (Reviewed 01/18/25 @ 00:30 by TELLO Lund Smoking Status: Never smoker alcohol intake: current substance use type: does not use Smoking Status: Never smoker alcohol intake frequency: holidays/special occasions only Exam Initial Vital Signs Initial Vital Signs: Vital Signs Temperature 99.0 F 01/17/25 17:13 Pulse Rate 82 01/17/25 17:13 Respiratory Rate 18 01/17/25 17:13 Blood Pressure 119/61 01/17/25 17:13 Pulse Oximetry 99 01/17/25 17:13 Oxygen Delivery Method Room Air 01/17/25 17:13 GENERAL: Alert well-appearing 74-year-old male and in no acute distress. HEENT: Head atraumatic,EOMI, pupils reactive, face symmetric, moist mucous membranes CARDIOVASCULAR: Regular rate and rhythm without murmurs, rubs or gallops. RESPIRATORY: Breath sounds equal bilaterally, no wheezes rales or rhonchi. ABDOMEN: Soft, nontender. Normoactive bowel sounds all 4 quadrants. No guarding or rebound. EXTREMITIES: Normal range of motion, no clubbing or edema. Neurovascularly intact NEUROLOGICAL: Alert and oriented x4.Normal gait and speech. Cranial nerves II through XII grossly intact. SKIN: Warm, dry, no laceration, no petechiae, no rashes or lesions. Course Orders Ordered: ED Orders 01/18/25 00:05 Urine Microscopic Stat Discontinued Medications Ondansetron HCl (Ondansetron 4 Mg/2 Ml Inj) 4 mg IV NOW PRN PRN Reason: Nausea And Vomiting Ondansetron HCl (Ondansetron 4 Mg Odt) 4 mg SL NOW PRN PRN Reason: Nausea And Vomiting Vital Signs Vital signs: Vital Signs - 8 hr 01/17/25 23:01 01/17/25 23:01 01/17/25 23:30 Temperature 98.6 F Pulse Rate 78 Respiratory Rate 17 Blood Pressure 140/79 112/59 L Pulse Oximetry 93 Oxygen Delivery Method Room Air 01/17/25 23:30 01/18/25 00:06 01/18/25 00:30 Temperature 99.1 F Pulse Rate 77 82 Respiratory Rate 14 Blood Pressure 117/63 Pulse Oximetry 93 Oxygen Delivery Method Room Air 01/18/25 00:30 01/18/25 00:57 Temperature 99.5 F Pulse Rate 77 Respiratory Rate 15 Blood Pressure Pulse Oximetry 94 Oxygen Delivery Method Room Air MDM - Fever Lab Data 01/17/25 17:25 01/17/25 17:25 Labs: Lab Results 01/17/25 01/18/25 Range/Units 17:25 00:05 WBC 5.8 (4.5-11.0) X10^3/uL RBC 3.79 L (4.5-5.9) X10^6/uL Hgb 12.5 L (13.5-17.5) g/dL Hct 36.1 L (41-53) % MCV 95.3 (80-100) fL MCH 32.8 (26-34) PG MCHC 34.5 (30-36) % RDW 13.2 (11.6-14.8) % Plt Count 194 (150-400) X10^3/uL Neut % (Auto) 70.4 (50-75) % Lymph % (Auto) 14.1 L (25-40) % Hendricks % (Auto) 13.5 (3-14) % Eos % (Auto) 1.4 L (2-4) % Baso % (Auto) 0.6 (0-2) % Neut # (Auto) 4100 (1122-4542) /uL Lymph # (Auto) 800 L (7374-8018) /uL Hendricks # (Auto) 800 (0-900) /uL Eos # (Auto) 100 (0-450) /uL Baso # (Auto) 0 (0-100) /uL PT 30.7 H (9.4-12.5) SECONDS INR 2.8 H (0.9-1.3) APTT 41 H (25.1-36.5) SECONDS Sodium 135 L (137-145) mmol/L Potassium 3.9 (3.4-5.1) mmol/L Chloride 100 (98-107) mmol/L Carbon Dioxide 28 (22-32) mmol/L BUN 16 (9-20) mg/dL Creatinine 0.82 (0.66-1.25) mg/dL Estimated GFR > 60 (>60) mL/min BUN/Creatinine Ratio 19.5 (6-22) Glucose 111 H (80-110) mg/dL Lactate 0.9 (0.7-2.1) mmol/L Calcium 9.4 (8.4-10.2) mg/dL Total Bilirubin 0.9 (0.2-1.3) mg/dL AST 45 (17-59) IU/L ALT 15 (<50) IU/L Alkaline Phosphatase 924 H (38-126) U/L Total Protein 7.2 (6.3-8.2) g/dL Albumin 3.8 (3.5-5.0) g/dL Globulin 3.4 (1.7-4.1) g/dL Albumin/Globulin Ratio 1.1 (1.0-2.8) Lipase 48 (23-300) U/L Procalcitonin 0.113 (<0.5) ng/mL Urine RBC 5-10/hpf H (0-5/HPF) Urine WBC None seen (0-5/HPF) Ur Squamous Epith Cells 0-1 /hpf (0-5/HPF) Urine Bacteria Occasional (0-1) (None) Hyaline Casts 0-1/lpf (None) Urine Mucus 2+ H (Negative) Ur Culture Indicated? Cult not indicated Vol Urine Centrifuged 10ml (spun) Urine Dip Bedside Urine Glucose Negative Bedside Urine Bilirubin - Negative Bedside Urine Ketone - Negative Urine Specific Hudson 1.020 Bedside Urine Occult Blood +++ Bedside Urine pH 6.0 Bedside Urine Protein +/- 15 Bedside Urine Urobilinogen - Negative Bedside Urine Nitrite - Negative Bedside Urine Leukocytes - Negative Esterase Imaging Data Chest x-ray: Radiologist's Impression: PROCEDURE: XR CHEST 1V INDICATIONS: suspected sepsis TECHNIQUE: One view of the chest was acquired. COMPARISON: [facility], , XR CHEST 2V, 12/08/2023, 9:53. [facility], , XR CHEST 2V, 11/25/2023, 18:10. FINDINGS AND IMPRESSION: Mild diffuse interstitial prominence, possibly atypical infection or edema. No pleural effusions. No dense airspace consolidation on this single view study. Normal heart size. 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 Future oncologic for surveillance imaging is recommended. Dictated by: Thanh Cervantes M.D. on 01/17/2025 at 17:51 Approved by: Thanh Cervantes M.D. on 01/17/2025 at 17:52 ECG Data Attestation: I personally reviewed and interpreted this ECG as follows: Prior ECG tracings: available for review Interpretation: Normal sinus rhythm rate 80 GA interval 176 QRS 84 QTC 439 changes no previous EKGs MDM Narrative Medical decision making narrative: Patient 74-year-old male history of metastatic prostate cancer presenting to day with fevers off and on for the last 21 days. He really has no symptoms. He has not recently had any therapy. Abdomen is soft breath sounds are clear Workup in the emergency department overall reassuring he has no leukocytosis no elevated lactic acid urinalysis is negative chest x-ray she was osteoblastic lesions but no evidence of infection. Blood cultures are pending INR therapeutic at 2.8, he was history of DVTs and pulmonary embolism No evidence of severe sepsis he has been afebrile in the emergency department for 7 hours. Temperature remains at 99.1 multiple times. At this time we did discuss about antibiotics however unclear your treating. Patient agreed no antibiotics at this time he will follow up with Jack Grijalva. Discharge Plan Departure Patient Disposition: Home Clinical Impression: Fever of unknown origin Instructions: DI for Fever (Symptom) -- Adult Activity Restrictions/Additional Instructions: *You have been diagnosed with fever *What to do: At this time please discuss with Jack Grijalva about your symptoms. Blood cultures are pending today however no obvious source of infection found *Continue to take medications as directed *Follow up with your primary care provider in 2-3 days or call [phone] *Return to ER if you should have increasing weakness cough chest pain abdominal pain nausea vomiting [or] any new, worsening or concerning symptoms Prescriptions: No Action levofloxacin 500 mg tablet 500 mg PO DAILY Qty: 7 0RF warfarin 5 mg tablet See Rx Instructions PO DAILY Qty: 90 3RF Protocol: Dose Management Condition: Tuesday Dose/Route: 5 mg Instruction: 1 x 5 mg tablet Condition: Tuesday Dose/Route: 2 mg Instruction: 1 x 2 mg tablet Condition: Tuesday Dose/Route: 7 mg Instruction: 1 x 2 mg tablet, 1 x 5 mg tablet Condition: Tuesday Dose/Route: 5 mg Instruction: 1 x 5 mg tablet Condition: Dose/Route: 7 mg Instruction: 1 x 2 mg tablet, 1 x 5 mg tablet Condition: Tuesday Dose/Route: 5 mg Instruction: 1 x 5 mg tablet Condition: Tuesday Dose/Route: 7 mg Instruction: 1 x 2 mg tablet, 1 x 5 mg tablet Protocol Text: Adjustment Start Date: Tuesday01/15/25 INR Value: 3.4 INR Date: 01/14/25 Recheck Date: 01/22/25 Rx Instructions: Take 1 tablets (5mg) 3 days a week then Take 5mg plus 2mg tab total (7mg) 4 days a week or as directed. warfarin 2 mg tablet See Rx Instructions PO DAILY Qty: 90 3RF Hold Instructions: Home Medication placed on hold at Doctor's office Protocol: Dose Management Condition: Tuesday Dose/Route: 5 mg Instruction: 1 x 5 mg tablet Condition: Tuesday Dose/Route: 2 mg Instruction: 1 x 2 mg tablet Condition: Tuesday Dose/Route: 7 mg Instruction: 1 x 2 mg tablet, 1 x 5 mg tablet Condition: Tuesday Dose/Route: 5 mg Instruction: 1 x 5 mg tablet Condition: Dose/Route: 7 mg Instruction: 1 x 2 mg tablet, 1 x 5 mg tablet Condition: Tuesday Dose/Route: 5 mg Instruction: 1 x 5 mg tablet Condition: Tuesday Dose/Route: 7 mg Instruction: 1 x 2 mg tablet, 1 x 5 mg tablet Protocol Text: Adjustment Start Date: Tuesday01/15/25 INR Value: 3.4 INR Date: 01/14/25 Recheck Date: 01/22/25 Rx Instructions: Take 1 (2mg) tab with 1 (5mg) tab 4 days a week or as directed orally daily; Lupron Depot (3 month) 11.25 mg syringe kit 11.25 mg IM [id number] epinephrine [EpiPen] 0.3 mg/0.3 mL Auto-Injector 0.3 mg PRN PRN (Reason: Allergic Reaction) Referrals: Milton Little MD [Non-Staff] - Viky Alcala DO [Primary Care Provider] - Stand Alone Forms: Patient Portal/API/Survey
[2025-01-18 00:06] VITALS: PULSE 82
[2025-01-18 00:30] VITALS: BP 117/63; PULSE 77; O2SAT 94
[2025-01-18 00:51] LABS: Bacteria Urine Occasional (0-1); Hyaline Casts Urine 0-1/LPF; RBC Urine 5-10/HPF (0-5/HPF); Squamous Epithelial Cell Urine 0-1 /HPF (0-5/HPF); Urine Volume 10mL (spun); WBC Urine None Seen (0-5/HPF)
[2025-01-18 00:52] LABS: Culture Indicated Urine Cult Not Indicated; Mucus Urine 2+ (Negative)
[2025-01-18 00:57] VITALS: RESP 15; TEMP 37.5
== END 2025-01-18 00:59 | disposition home or self-care (01) ==
PROVIDERS: Emergency Medicine; Emergency Provider Emergency Medicine; PCP Family Medicine
DX: R50.9 Fever, unspecified (principal); C61 Malignant neoplasm of prostate
CPT/HCPCS: 71045; 80053; 81003; 81015; 83605; 83690; 84145; 85025; 85610; 85730; 87040; 93005; 93010; 99283; 99284

== ENCOUNTER 2025-03-20 04:50 | Observation (INO) | payer MEDICARE, SELFPAY ==
[2025-03-20] VITALS (18 sets, daily range): BP systolic 113–157; BP diastolic 59–73; PULSE 52–81; RESP 12–26; TEMP 36.3–37.6; O2SAT 92–98; BMI 21.7
--- NOTE | 2025-03-20 04:53 | EKG_ITS ---
[address] [address] Test Date: 2025-03-20 Pat Name: Patrice Ortiz Department: [facility] Room: Gender: Male [employer]sembl[employer]: DONTE LINARES : 1950 Requested By: Order Number: [id number] Reading MD: Junior Cunningham Measurements Intervals [place] Rate: 78 P: 20 TN: 180 QRS: 3 QRSD: 82 T: 33 QT: 390 QTc: 444 Interpretive Statements Normal sinus rhythm Electronically Signed On 03-20-2025 7:46:32 PDT by Junior Cunningham
--- NOTE | 2025-03-20 04:53 | DI.RAD.S_ITS ---
PROCEDURE: XR CHEST 1V INDICATIONS: Chest Pain TECHNIQUE: One view of the chest was acquired. COMPARISON: [facility], CT, CT ANGIO CHEST PE PROTOCOL, 03/20/2025, 5:40. [facility], CR, XR CHEST 1V, 01/17/2025, 17:17. FINDINGS: Surgical changes and devices: None. Lungs and pleura: Right lateral mid lobe pulmonary opacity. Mediastinum: Mediastinal contours appear normal. Heart size is normal. Bones and chest wall: No suspicious bony lesions. Overlying soft tissues appear unremarkable. IMPRESSION: Right mid lobe opacity. This may represent overlapping shadows or potentially pleural thickening. However, mass cannot be excluded. CT is recommended. The above findings are concordant with preliminary report. Dictated by: Gemma Bhatti M.D. on 03/20/2025 at 8:54 Approved by: Gemma Bhatti M.D. on 03/20/2025 at 10:54
--- NOTE | 2025-03-20 05:16 | ED_ITS ---
HPI - Chest Pain <Jacek Dawson DO - Last Filed: 03/20/25 06:26> General Chief Complaint: Chest Pain Stated Complaint: Tightness/pain in chest. Time Seen by Provider: 03/20/25 05:16 Source: patient Mode of arrival: Ambulatory Limitations: no limitations History of Present Illness HPI narrative: 74-year-old male with a past medical history of hyperlipidemia, prostate cancer falls with [facility], PE, DVT, on warfarin presenting from home for evaluation of left-sided chest pain. He states that it woke him up at around 3 this morning. States that he felt pressure 6/10, nonexertional no radiation. However he does state that it is worse whenever he takes a deep breath. States that he did take his morning medication which included his warfarin this morning prior to arrival. Patient denies any other symptoms such as headache visual disturbances shortness of breath fever chills nausea vomiting abdominal pain or any other GI/ symptoms. He states that he is still undergoing chemotherapy for his prostate cancer, states his last treatment was in January and is due for his next treatment on March 28. Related Data Home Medications Medication Instructions Recorded Confirmed epinephrine 0.3 mg/0.3 mL 0.3 mg PRN PRN Allergic Reaction 08/21/19 07/02/24 injection, auto-injector (EpiPen) leuprolide (3 month) 11.25 mg (3 11.25 mg IM [id number] 08/31/23 07/02/24 month) intramuscular syringe kit (Lupron Depot) Previous Rx's Medication Instructions Recorded levofloxacin 500 mg tablet 500 mg PO DAILY #7 tabs 04/23/24 warfarin 2 mg tablet See Rx Instructions PO DAILY #90 01/24/25 tabs warfarin 5 mg tablet See Rx Instructions PO DAILY #90 01/24/25 tabs Allergies Allergy/AdvReac Type Severity Reaction Status Date / Time bee venom protein (honey bee) Allergy Unknown Verified 07/02/24 08:54 Review of Systems <DO Benito Ness Last Filed: 03/20/25 06:26> Review of Systems Narrative: General: Denies fever, chills, weight loss HEENT: Denies headache, eye drainage, eye irritation, head trauma, sore throat, voice change Cardiovascular: Positive left side chest pain, denies palpitations, tachycardia Respiratory: Denies any shortness of breath, cough, wheeze, stridor GI/: Denies any abdominal pain, nausea, vomiting, diarrhea, bright red blood per rectum, melanotic stools, urinary frequency, urinary retention, dysuria, hematuria MSK: Denies any joint pain, muscle pains, swelling Skin: Denies any rashes, lesions, discoloration Neuro: Denies any headache, lightheadedness, dizziness, fainting, weakness Psych: Denies SI/HI Patient History <Jacek Dawson DO - Last Filed: 03/20/25 06:26> Medical History Lab test negative for COVID-19 virus Back pain Strain of right Achilles tendon Seborrheic keratosis Cellulitis Sacral region somatic dysfunction Pelvic somatic dysfunction Prostate cancer metastatic to bone Warfarin anticoagulation Leg wound, left Cervical somatic dysfunction Physician orders for life-sustaining treatment (POLST) form indicates patient wish for pl-iqb-zffdbhqvrag status Back stiffness Neck pain Neoplasm of prostate as incidental histologic finding in more than 5% of resected tissue (T1b) Surgical History History of total knee arthroplasty History of orthopedic surgery Social History alcohol intake: current substance use type: does not use alcohol intake frequency: holidays/special occasions only Exam <Jacek Dawson DO - Last Filed: 03/20/25 06:26> Narrative Exam Narrative: General: Cooperative, well-developed, not in acute distress HEENT: Normocephalic, atraumatic, PERRLA, normal sclera, eyelids normal Neck: Active full range of motion, atraumatic Chest: Normal to inspection, negative crepitus, no overlying erythema ecchymosis Respiratory: Normal respiratory effort, not in acute respiratory distress, clear to auscultation bilaterally negative cough, wheeze, tachypnea, rhonchi, rales Cardiology: Regular rate rhythm negative gallop, murmur, rubs GI/: No tenderness to palpation, soft, non rigid, normal to inspection, exam deferred MSK: Full active range of motion in all 4 extremities, atraumatic, no tenderness to palpation of any bony prominences Skin: No rashes or lesions noted Neuro: Alert awake oriented x3, moves all 4 extremities spontaneously, cranial nerves intact, able to answer all questions appropriately follows commands appropriately Psych: Cooperative, negative suicidal or homicidal ideations Initial Vital Signs Initial Vital Signs: Vital Signs Temperature 97.4 F L 03/20/25 05:00 Pulse Rate 73 03/20/25 05:00 Respiratory Rate 17 03/20/25 05:00 Blood Pressure 157/73 H 03/20/25 05:00 Pulse Oximetry 94 03/20/25 05:00 Oxygen Delivery Method Room Air 03/20/25 05:00 <Dexter Rick MD - Last Filed: 03/20/25 09:29> Initial Vital Signs Initial Vital Signs: Vital Signs Temperature 97.4 F L 03/20/25 05:00 Pulse Rate 73 03/20/25 05:00 Respiratory Rate 17 03/20/25 05:00 Blood Pressure 157/73 H 03/20/25 05:00 Pulse Oximetry 94 03/20/25 05:00 Oxygen Delivery Method Room Air 03/20/25 05:00 Course <Jacek Dawson DO - Last Filed: 03/20/25 06:26> Orders Ordered: ED Orders 03/20/25 04:53 XR chest 1V Stat EKG-12 Lead Stat 03/20/25 05:10 Complete Blood Count AUTO DIFF Stat Comprehensive Metabolic Panel Stat Lipase Stat Magnesium Stat NT-proBNP (BNP-Adult 18+) Stat PTT Partial Thromboplastin Ollie Stat Prothrombin Time INR Stat Troponin & CK Cardiac Panel Stat 03/20/25 05:27 CT angio chest PE protocol Stat 03/20/25 07:42 Trop I [Troponin I] Stat Acetaminophen (Acetaminophen 325 Mg Tablet) 650 mg PO Q6H PRN PRN Reason: Fever/Mild Pain (1-3) Naloxone HCl (Naloxone 0.4 Mg/Ml Vial) 0.2 mg IV Q2MIN PRN PRN Reason: Opiate Reversal Discontinued Medications Aspirin (Aspirin 81 Mg Chew Tab) 324 mg PO NOW ONE Stop: 03/20/25 04:54 Last Admin: 03/20/25 05:56 Dose: Not Given Documented By: CARMEN Vital Signs Vital signs: Vital Signs - 8 hr 03/20/25 05:00 03/20/25 05:03 03/20/25 05:13 Temperature 97.4 F L Pulse Rate 73 76 75 Respiratory Rate 17 24 19 Blood Pressure 157/73 H Pulse Oximetry 94 96 94 Oxygen Delivery Method Room Air Room Air 03/20/25 05:13 03/20/25 05:30 03/20/25 05:30 Temperature Pulse Rate 76 Respiratory Rate 21 Blood Pressure 126/64 126/64 Pulse Oximetry 95 Oxygen Delivery Method 03/20/25 06:00 03/20/25 06:30 03/20/25 07:00 Temperature Pulse Rate 75 75 73 Respiratory Rate 22 23 20 Blood Pressure Pulse Oximetry 94 95 94 Oxygen Delivery Method Room Air 03/20/25 07:30 Temperature Pulse Rate 74 Respiratory Rate 17 Blood Pressure Pulse Oximetry 95 Oxygen Delivery Method <Dexter Rick MD - Last Filed: 03/20/25 09:29> Orders Ordered: ED Orders 03/20/25 04:53 XR chest 1V Stat EKG-12 Lead Stat 03/20/25 05:10 Complete Blood Count AUTO DIFF Stat Comprehensive Metabolic Panel Stat Lipase Stat Magnesium Stat NT-proBNP (BNP-Adult 18+) Stat PTT Partial Thromboplastin Ollie Stat Prothrombin Time INR Stat Troponin & CK Cardiac Panel Stat 03/20/25 05:27 CT angio chest PE protocol Stat 03/20/25 07:42 Trop I [Troponin I] Stat Acetaminophen (Acetaminophen 325 Mg Tablet) 650 mg PO Q6H PRN PRN Reason: Fever/Mild Pain (1-3) Naloxone HCl (Naloxone 0.4 Mg/Ml Vial) 0.2 mg IV Q2MIN PRN PRN Reason: Opiate Reversal Discontinued Medications Aspirin (Aspirin 81 Mg Chew Tab) 324 mg PO NOW ONE Stop: 03/20/25 04:54 Last Admin: 03/20/25 05:56 Dose: Not Given Documented By: CARMEN Vital Signs Vital signs: Vital Signs - 8 hr 03/20/25 05:00 03/20/25 05:03 03/20/25 05:13 Temperature 97.4 F L Pulse Rate 73 76 75 Respiratory Rate 17 24 19 Blood Pressure 157/73 H Pulse Oximetry 94 96 94 Oxygen Delivery Method Room Air Room Air 03/20/25 05:13 03/20/25 05:30 03/20/25 05:30 Temperature Pulse Rate 76 Respiratory Rate 21 Blood Pressure 126/64 126/64 Pulse Oximetry 95 Oxygen Delivery Method 03/20/25 06:00 03/20/25 06:30 03/20/25 07:00 Temperature Pulse Rate 75 75 73 Respiratory Rate 22 23 20 Blood Pressure Pulse Oximetry 94 95 94 Oxygen Delivery Method Room Air 03/20/25 07:30 Temperature Pulse Rate 74 Respiratory Rate 17 Blood Pressure Pulse Oximetry 95 Oxygen Delivery Method MDM - Chest Pain <Jacek Dawson DO - Last Filed: 03/20/25 06:26> Differential Diagnosis Differential diagnosis: Likely costochondritis, chest pain and other (ACS, pneumonia, electrolyte abnormality) Lab Data 03/20/25 05:10 03/20/25 05:10 Labs: Lab Results 03/20/25 03/20/25 Range/Units 05:10 07:42 WBC 4.0 L (4.5-11.0) X10^3/uL RBC 3.45 L (4.5-5.9) X10^6/uL Hgb 10.8 L (13.5-17.5) g/dL Hct 31.6 L (41-53) % MCV 91.6 (80-100) fL MCH 31.3 (26-34) PG MCHC 34.2 (30-36) % RDW 19.2 H (11.6-14.8) % Plt Count 195 (150-400) X10^3/uL Neut % (Auto) 63.1 (50-75) % Lymph % (Auto) 16.2 L (25-40) % [place] % (Auto) 16.9 H (3-14) % Eos % (Auto) 3.3 (2-4) % Baso % (Auto) 0.5 (0-2) % Neut # (Auto) 2500 (1895-9007) /uL Lymph # (Auto) 600 L (7871-2611) /uL [place] # (Auto) 700 (0-900) /uL Eos # (Auto) 100 (0-450) /uL Baso # (Auto) 0 (0-100) /uL PT 20.0 H (9.4-12.5) SECONDS INR 1.8 H (0.9-1.3) APTT 34 (25.1-36.5) SECONDS Sodium 136 L (137-145) mmol/L Potassium 4.1 (3.4-5.1) mmol/L Chloride 104 (98-107) mmol/L Carbon Dioxide 25 (22-32) mmol/L BUN 22 H (9-20) mg/dL Creatinine 0.83 (0.66-1.25) mg/dL Estimated GFR > 60 (>60) mL/min BUN/Creatinine Ratio 26.5 H (6-22) Glucose 105 H (70-99) mg/dL Calcium 9.3 (8.4-10.2) mg/dL Magnesium 2.1 (1.6-2.3) mg/dL Total Bilirubin 1.0 (0.2-1.3) mg/dL AST 39 (17-59) IU/L ALT 11 (<50) IU/L Alkaline Phosphatase 1109 H (38-126) U/L Total Creatine Kinase 61 (55-170) U/L Troponin I < 0.012 < 0.012 (0.01-0.034) ng/mL NT-Pro-B Natriuret Pep 508 H (<450) pg/mL Total Protein 7.3 (6.3-8.2) g/dL Albumin 4.0 (3.5-5.0) g/dL Globulin 3.3 (1.7-4.1) g/dL Albumin/Globulin Ratio 1.2 (1.0-2.8) Lipase 65 (23-300) U/L Imaging Data Chest x-ray: Radiologist's Impression: Preliminary read showing consolidation within the right lateral thorax, possibly infiltrate or mass, sclerotic densities within bilateral humeri compatible with metastatic disease ECG Data Interpretation: EKG interpreted by ED physician sinus 78 beats per minute QTC 444 normal axis no STEMI MDM Narrative Medical decision making narrative: 74-year-old male with a past medical history of hyper lipidemia, factor 5 Leiden mutation with PE, DVT on warfarin, prostate cancer who follows with Jack Grijalva, last treatment was in January, next treatment March 28. Presenting for left-sided chest pain, states worse with deep inspiration, no radiation. States that he did take his morning medication which included his warfarin earlier today prior to arrival. He states that the pain is sharp and shooting whenever he takes a deep breath otherwise it is feeling more like a pressure, states symptoms have improved since presentation here. Patient's EKG nonischemic in nature. Chest x-ray did show possible consolidation versus mass to the right lateral thorax however patient complaining more so of the left-sided chest pain no shortness of breath, patient does not requiring any supplemental oxygen. Therefore at this time we will hold off on any antibiotics at this time, CTA PE study ordered. Patient afebrile, CBC showing WBC of 4.0, INR 1.8, creatinine 0.83, GFR greater than 60. According to patient and last INR was approximately a week ago and was 1.7, they state that primary care is the 1 who is managing this and is slowly getting him back to therapeutic range given the fact that he was supratherapeutic prior. Troponin negative, BNP 508. Heart score 4. Patient signed out to Dr. Rick, patient pending admission versus transfer for cardiac workup given heart score for with left-sided chest pain. Patient is still pending CTA PE results. <Dexter Rick MD - Last Filed: 03/20/25 09:29> Lab Data Labs: Lab Results 03/20/25 03/20/25 Range/Units 05:10 07:42 WBC 4.0 L (4.5-11.0) X10^3/uL RBC 3.45 L (4.5-5.9) X10^6/uL Hgb 10.8 L (13.5-17.5) g/dL Hct 31.6 L (41-53) % MCV 91.6 (80-100) fL MCH 31.3 (26-34) PG MCHC 34.2 (30-36) % RDW 19.2 H (11.6-14.8) % Plt Count 195 (150-400) X10^3/uL Neut % (Auto) 63.1 (50-75) % Lymph % (Auto) 16.2 L (25-40) % [place] % (Auto) 16.9 H (3-14) % Eos % (Auto) 3.3 (2-4) % Baso % (Auto) 0.5 (0-2) % Neut # (Auto) 2500 (3225-8438) /uL Lymph # (Auto) 600 L (6091-0030) /uL [place] # (Auto) 700 (0-900) /uL Eos # (Auto) 100 (0-450) /uL Baso # (Auto) 0 (0-100) /uL PT 20.0 H (9.4-12.5) SECONDS INR 1.8 H (0.9-1.3) APTT 34 (25.1-36.5) SECONDS Sodium 136 L (137-145) mmol/L Potassium 4.1 (3.4-5.1) mmol/L Chloride 104 (98-107) mmol/L Carbon Dioxide 25 (22-32) mmol/L BUN 22 H (9-20) mg/dL Creatinine 0.83 (0.66-1.25) mg/dL Estimated GFR > 60 (>60) mL/min BUN/Creatinine Ratio 26.5 H (6-22) Glucose 105 H (70-99) mg/dL Calcium 9.3 (8.4-10.2) mg/dL Magnesium 2.1 (1.6-2.3) mg/dL Total Bilirubin 1.0 (0.2-1.3) mg/dL AST 39 (17-59) IU/L ALT 11 (<50) IU/L Alkaline Phosphatase 1109 H (38-126) U/L Total Creatine Kinase 61 (55-170) U/L Troponin I < 0.012 < 0.012 (0.01-0.034) ng/mL NT-Pro-B Natriuret Pep 508 H (<450) pg/mL Total Protein 7.3 (6.3-8.2) g/dL Albumin 4.0 (3.5-5.0) g/dL Globulin 3.3 (1.7-4.1) g/dL Albumin/Globulin Ratio 1.2 (1.0-2.8) Lipase 65 (23-300) U/L [facility] Narrative Medical decision making narrative: 74-year-old male with a past medical history of hyper lipidemia, factor 5 Leiden mutation with PE, DVT on warfarin, prostate cancer who follows with Jack Grijalva, last treatment was in January, next treatment March 28. Presenting for left-sided chest pain, states worse with deep inspiration, no radiation. States that he did take his morning medication which included his warfarin earlier today prior to arrival. He states that the pain is sharp and shooting whenever he takes a deep breath otherwise it is feeling more like a pressure, states symptoms have improved since presentation here. Patient's EKG nonischemic in nature. Chest x-ray did show possible consolidation versus mass to the right lateral thorax however patient complaining more so of the left-sided chest pain no shortness of breath, patient does not requiring any supplemental oxygen. Therefore at this time we will hold off on any antibiotics at this time, CTA PE study ordered. Patient afebrile, CBC showing WBC of 4.0, INR 1.8, creatinine 0.83, GFR greater than 60. According to patient and last INR was approximately a week ago and was 1.7, they state that primary care is the 1 who is managing this and is slowly getting him back to therapeutic range given the fact that he was supratherapeutic prior. Troponin negative, BNP 508. Heart score 4. Patient signed out to Dr. Rick, patient pending admission versus transfer for cardiac workup given heart score for with left-sided chest pain. Patient is still pending CTA PE results. March 20, [address] Rick: Sign out from Dr. Dawson, patient here for chest pain. Has heart score of 4. Currently chest pain-free. He did speak with cardiology service and recommend admission for stress test. 7:10 a.m.. Patient resting comfortably. . No new issues reported by nursing staff CT chest no pulmonary embolism or dissection. Extensive osseous metastasis noted. 7:[address] Rick: Spoke with hospitalist, Dr. Cunningham, will admit patient 8:45 a.m.. at bedside. Patient is awake. They do agree and understand need for admission for cardiac stress test. Discharge Plan Departure Patient Disposition: Admitted as Observation Clinical Impression: Subtherapeutic international normalized ratio (INR) Chest pain Qualifiers: Chest pain type: unspecified Qualified Code(s): R07.9 - Chest pain, unspecified Admit Date/Time: 03/20/25 07:57 Admit Provider: Junior Cunningham
[2025-03-20 05:21] LABS: Add Manual Diff / Slide Review NO; Basophils Absolute Auto 0 /uL (0-100); Basophils Percent Auto 0.5 % (0-2); Eosinophils Absolute Auto 100 /uL (0-450); Eosinophils Percent Auto 3.3 % (2-4); Hematocrit 31.6 % (41-53); Hemoglobin 10.8 g/dL (13.5-17.5); Lymphocytes Absolute Auto 600 /uL (1100-4500); Lymphocytes Percent Auto 16.2 % (25-40); Mean Corpuscular HGB Conc 34.2 % (30-36); Mean Corpuscular Hemoglobin 31.3 PG (26-34); Mean Corpuscular Volume 91.6 fL (80-100); Monocytes Absolute Auto 700 /uL (0-900); Monocytes Percent Auto 16.9 % (3-14); Neutrophils Absolute Auto 2500 /uL (1500-7000); Neutrophils Percent Auto 63.1 % (50-75); Platelet Count 195 X10^3/uL (150-400); Red Blood Cell Count 3.45 X10^6/uL (4.5-5.9); Red Cell Distribution Width 19.2 % (11.6-14.8)
[2025-03-20 05:26] LABS: INR 1.8 (0.9-1.3)
--- NOTE | 2025-03-20 05:27 | DI.CT.S_ITS ---
PROCEDURE: CT ANGIO CHEST PE PROTOCOL INDICATIONS: left sided CP hx of PE, abnormal cxr w/ rt side consol TECHNIQUE: After the administration of intravenous contrast, 2 mm thick sections acquired from the pulmonary apices to the posterior costophrenic angles. 3-dimensional maximum intensity projection (MIP) coronal and sagittal reformats were then acquired through the thorax. For radiation dose reduction, the following was used: automated exposure control, adjustment of mA and/or kV according to patient size. COMPARISON: [facility], CT, CT ABDOMEN PELVIS W CON, 04/21/2024, 7:24. [facility], CT, CT ANGIO CHEST PE PROTOCOL, 12/24/2023, 11:36. FINDINGS: Image quality: Diagnostic. Pulmonary arteries: Pulmonary arteries are normal in size, and demonstrate no intraluminal filling defects to suggest central pulmonary embolism. Lower Neck: No enlarged lymph nodes. Thyroid: No thyroid nodules which require sonographic follow up, per consensus guidelines. Axillae: No enlarged lymph nodes. Chest Wall: Unremarkable. Bones: Diffuse appearance what appears to be osseous metastatic disease overall appearance appears slightly progressive compared to prior exam. Lungs and Pleura: No pneumothorax or pleural effusions. Dependent changes are present bilaterally. Lungs are hyperinflated. Emphysematous changes are present. Heart: Heart size is normal. No pericardial effusion. Thoracic Vessels: No aortic aneurysm. Mediastinum and [place]: No enlarged lymph nodes. Esophagus: No wall thickening. No hiatal hernia. Upper Abdomen: Visualized upper abdomen solid organs and bowel loops appear normal. IMPRESSION: No pulmonary embolus. Dependent changes within the lungs. The lungs are hyperinflated. The above findings are concordant with preliminary report. Dictated by: Gemma Bhatti M.D. on 03/20/2025 at 11:27 Approved by: Gemma Bhatti M.D. on 03/20/2025 at 11:36
[2025-03-20 05:29] LABS: PTT Partial Thromboplastin Tim 34 SECONDS (25.1-36.5)
[2025-03-20 05:31] LABS: Alanine Aminotransferase 11 IU/L (<50); Albumin Globulin Ratio 1.2 (1.0-2.8); Aspartate Aminotransferase 39 IU/L (17-59); BUN Creatinine Ratio 26.5 (6-22); Blood Urea Nitrogen 22 mg/dL (9-20); Calcium 9.3 mg/dL (8.4-10.2); Carbon Dioxide 25 mmol/L (22-32); Chloride 104 mmol/L (98-107); Creatine Kinase 61 U/L (55-170); Estimated Glomerular Filt Rate > 60 mL/min (>60); Globulin 3.3 g/dL (1.7-4.1); Glucose 105 mg/dL (70-99); HEMOLYSIS < 15 (0-50); Lipase 65 U/L (23-300); Magnesium 2.1 mg/dL (1.6-2.3); Potassium 4.1 mmol/L (3.4-5.1); Sodium 136 mmol/L (137-145); Total Protein 7.3 g/dL (6.3-8.2)
[2025-03-20 05:38] LABS: Alkaline Phosphatase 1109 U/L (38-126)
[2025-03-20 05:43] LABS: NT-proBNP (BNP-Adult 18+) 508 pg/mL (<450); Troponin I < 0.012 ng/mL (0.01-0.034)
--- NOTE | 2025-03-20 08:11 | P.HP_ITS ---
History of Present Illness History of Present Illness Date Patient Seen: 03/20/25 Time Patient Seen: 11:30 Chief complaint: Tightness/pain in chest. Narrative: The patient was a 74-year-old male with a history of hyperlipidemia, metastatic prostate cancer, PE, and DVT who presented with chest pain. He awoke in the middle of the night with left-sided pain and diaphoresis. He was not short of breath, or nauseated. He denies any dyspeptic symptoms. He does note that the pain increased with deep breathing. He does have a history of bony metastases in his had right-sided chest pain in the past, although it felt different. Because of these symptoms being persistent, left-sided, and having some radiation to the neck, he proceeded to the ED where he would normal ECG and negative troponin. It was heart score is 4 and they requested an observational admission with a stress test. Patient has no history of heart disease, no family history of heart attack. He denies exertional chest pain or dyspnea. No recent URI symptoms or pneumonia symptoms such as rhinorrhea, fevers, or cough. ED course: Normal ECG and troponin. CTA does reveal diffuse osseous involvement in the thorax and ribcage of prostate cancer. [facility] Medical History Lab test negative for COVID-19 virus Back pain Strain of right Achilles tendon Seborrheic keratosis Cellulitis Sacral region somatic dysfunction Pelvic somatic dysfunction Prostate cancer metastatic to bone Warfarin anticoagulation Leg wound, left Cervical somatic dysfunction Physician orders for life-sustaining treatment (POLST) form indicates patient wish for nh-jhb-otebqujzrel status Back stiffness Neck pain Neoplasm of prostate as incidental histologic finding in more than 5% of resected tissue (T1b) Surgical History History of total knee arthroplasty History of orthopedic surgery Social History alcohol intake: current substance use type: does not use Meds Home Medications and Allergies Home Medications Medication Instructions Recorded Confirmed Type epinephrine 0.3 mg/0.3 mL 0.3 mg PRN PRN Allergic Reaction 08/21/19 07/02/24 History injection, auto-injector (EpiPen) leuprolide (3 month) 11.25 mg (3 11.25 mg IM [id number] 08/31/23 07/02/24 History month) intramuscular syringe kit (Lupron Depot) levofloxacin 500 mg tablet 500 mg PO DAILY #7 tabs 04/23/24 07/02/24 Rx warfarin 2 mg tablet See Rx Instructions PO DAILY #90 01/24/25 Rx tabs warfarin 5 mg tablet See Rx Instructions PO DAILY #90 01/24/25 Rx tabs Allergies Allergy/AdvReac Type Severity Reaction Status Date / Time bee venom protein (honey bee) Allergy Unknown Verified 07/02/24 08:54 Review of Systems Review of Systems Narrative: All else reviewed and otherwise unremarkable except as noted in the history and physical. Exam Vital Signs (past 8 hours): - 03/20/25 05:00 03/20/25 05:03 03/20/25 05:13 Temperature 97.4 F L Pulse Rate 73 76 75 Respiratory Rate 17 24 19 Blood Pressure 157/73 H Pulse Oximetry 94 96 94 Oxygen Delivery Method Room Air Room Air 03/20/25 05:13 03/20/25 05:30 03/20/25 05:30 Temperature Pulse Rate 76 Respiratory Rate 21 Blood Pressure 126/64 126/64 Pulse Oximetry 95 Oxygen Delivery Method 03/20/25 06:00 Temperature Pulse Rate 75 Respiratory Rate 22 Blood Pressure Pulse Oximetry 94 Oxygen Delivery Method Room Air Oxygen Delivery Method Room Air Narrative Exam Narrative: NAD, alert and oriented, fluent speech, calm. Normocephalic skull, EOMI, anicteric sclera, symmetric pupils. Oropharynx unremarkable, no droop. Neck supple, midline trachea, no adenopathy. Lungs clear, normal rate and effort. Heart regular, no murmur gallop or rub. Abdomen is soft, non distended and non tender. Extremities are free of edema. Skin is free of rash or lesions. Joints are not swollen or deformed. Judgment appears to be normal. Objective ECG Impression: Intervals Douglass Rate: 78 P: 20 VT: 180 QRS: 3 QRSD: 82 T: 33 QT: 390 QTc: 444 Interpretive Statements Normal sinus rhythm Imaging Multiple studies:: Radiologist's impression: Chest x-ray: Right mid lobe opacity. This may represent overlapping shadows or potentially pleural thickening. However, mass cannot be excluded. CT is recommended. Chest CTA: Pulmonary arteries: Pulmonary arteries are normal in size, and demonstrate no intraluminal filling defects to suggest central pulmonary embolism. Lower Neck: No enlarged lymph nodes. Thyroid: No thyroid nodules which require sonographic follow up, per consensus guidelines. Axillae: No enlarged lymph nodes. Chest Wall: Unremarkable. Bones: Diffuse appearance what appears to be osseous metastatic disease overall appearance appears slightly progressive compared to prior exam. Lungs and Pleura: No pneumothorax or pleural effusions. Dependent changes are present bilaterally. Lungs are hyperinflated. Emphysematous changes are present. Heart: Heart size is normal. No pericardial effusion. Thoracic Vessels: No aortic aneurysm. Mediastinum and Brooke: No enlarged lymph nodes. Esophagus: No wall thickening. No hiatal hernia. Upper Abdomen: Visualized upper abdomen solid organs and bowel loops appear normal. IMPRESSION: No pulmonary embolus. Dependent changes within the lungs. The lungs are hyperinflated. Labs 03/20/25 05:10 03/20/25 05:10 Labs: Laboratory Results - last 24 hr 03/20/25 05:10 WBC 4.0 L RBC 3.45 L Hgb 10.8 L Hct 31.6 L MCV 91.6 MCH 31.3 MCHC 34.2 RDW 19.2 H Plt Count 195 Neut % (Auto) 63.1 Lymph % (Auto) 16.2 L [place] % (Auto) 16.9 H Eos % (Auto) 3.3 Baso % (Auto) 0.5 Neut # (Auto) 2500 Lymph # (Auto) 600 L [place] # (Auto) 700 Eos # (Auto) 100 Baso # (Auto) 0 PT 20.0 H INR 1.8 H APTT 34 Sodium 136 L Potassium 4.1 Chloride 104 Carbon Dioxide 25 BUN 22 H Creatinine 0.83 Estimated GFR > 60 BUN/Creatinine Ratio 26.5 H Glucose 105 H Calcium 9.3 Magnesium 2.1 Total Bilirubin 1.0 AST 39 ALT 11 Alkaline Phosphatase 1109 H Total Creatine Kinase 61 Troponin I < 0.012 NT-Pro-B Natriuret Pep 508 H Total Protein 7.3 Albumin 4.0 Globulin 3.3 Albumin/Globulin Ratio 1.2 Lipase 65 Assessment & Plan Assessment & Plan narrative: 1. Chest pain (pleuritic), active 2. Metastatic prostate CA, active. 3. Chronic PE/DVT, active. On anticoagulation. Warfarin. 4. HLD, stable. PLAN: -observation admission with telemetry, serial troponin, and stress test. -continue all chronic medications including warfarin. -no evidence of acute embolism on CTA. -strong likelihood of this being skeletal pain from osseous metastases. Anticipate 1 midnight in the hospital, supports observation status. DNR, confirmed with the patient today. is proxy decision maker. Time-Based Coding :: 35 min spent with patient and on the chart (including review of chart, obtaining history, exam, reviewing outside data, placing orders, documenting exam and treatment plan, and counseling patient) on 03/20. Quality MIPS - Admit The patient?s Advance Care plan is not present because I confirmed today that the patient does not wish or was not able to name a surrogate decision maker or provide an Advance Care Plan.: Yes MIPS - Meds 'Current medications' to include all prescriptions, cinj-wla-nxjumvq products, herbals, cannabis/cannabidiol products, and vitamin/mineral/dietary (nutritional) supplements. I have utilized all available resources to obtain, update, or review the patient?s current medications. [If Yes, STOP here]: Yes
[2025-03-20 08:24] LABS: Troponin I < 0.012 ng/mL (0.01-0.034)
[2025-03-20 17:42] LABS: Troponin I < 0.012 ng/mL (0.01-0.034)
[2025-03-20] MEDS: WARFARIN 2.5 MG TABLET PO (17:49)
--- NOTE | 2025-03-20 18:54 | PC.NURSE ---
Patient arrived to room 209 this a.m. A&OX4, VSS, afebrile on RA. He denies chest pain currently but reports it comes and goes and sometimes when he takes a deep breath. He denies dizziness or SOB and is SBA with steady gait to bathroom. He is able to complete one half of stress test today and will be NPO after midnight for 2nd part of the stress test tomorrow. He is NSR-ST on telemetry. He does express anxiety about not being able to sleep easily, possibly restless legs, but had tried many medications in the past to help sleep and nothing has helped. He states he has recently lost 15 pounds but is slowly getting in back, due to cancer treatment medications. Continuous monitoring.
[2025-03-21 04:00] VITALS: BP 121/73; PULSE 75; RESP 18; TEMP 36.3; O2SAT 95
[2025-03-21 06:54] LABS: Prothrombin Time 21.8 SECONDS (9.4-12.5)
[2025-03-21 08:00] VITALS: BP 105/59; PULSE 73; RESP 18; TEMP 36.7; O2SAT 96
[2025-03-21 13:02] VITALS: BP 111/63; PULSE 89; RESP 18; TEMP 36.8; O2SAT 96
--- NOTE | 2025-03-21 13:07 | PC.NURSE ---
Day shift: Pt back from stress test at approx 1245. Pt has no complaints or concerns at this time. Eating lunch now.
--- NOTE | 2025-03-21 14:06 | CM.DANOTE ---
Initial DCP Assessment Visit Note Reviewed EMR and team rounds for pt's medical status and updates. Met with pt at bedside to introduce self and role, pt was found to be alert/oriented, resting quietly in bed, in no acute distress or discomfort. Pt lives independently at baseline with his spouse in their own home here in [place]. His will be transporting him home at d/c, likely later this afternoon after his stress test has been read and he's medically cleared for d/c. He declines any CM d/c assistance or resource needs at this time. Payor: Medicare PCP: Viky Alcala Pt is a 74 year-old M with a hx of recent metastatic prostate cancer, currently receiving tx through [facility] in [place]. He presented to the ED yesterday with c/o L-sided chest pain that had started in the middle of the night, and reports that chest pressure as a 6/10. He was admitted to [facility] for further monitoring with telemetry, serial troponin, and today was his stress test. No anticipated needs. Notified the Primary Care TCM group of need for f/u with Dr. Alcala. Discharge Planning/Care Management CM Discharge Assessment Start: 03/20/25 08:59 Freq: Status: Active Protocol: Document 03/21/25 14:03 DPL (Rec: 03/21/25 14:05 DPL [id number]) Discharge Planning Assessment Assigned Integration Lead BIANCA Lewis Advance Directives? Yes: POL Advance Directives on File Yes History Provided By Patient,Medical Record Has Patient been admitted in last 30 No days? Prior Living Arrangements House Household Members significant other Type of transporation used prior to Drives own vehicle admit Independent with ADL's Yes Is patient alert and oriented? Yes Comment N/A Comment No identified d/c needs at this time. Barriers to Discharge No Discharge Plan Home Transportation Arrangement Spouse Referrals Initiated None needed Whiteboard Updated in Patient Room with Yes name and ext. # of Integration Lead Review Status In Process Please Provide Date Initial DC 03/21/25 Assessment Was Performed
--- NOTE | 2025-03-21 14:21 | DI.NM.S_ITS ---
DATE OF SERVICE: 03/20/2025 NUCLEAR MYOCARDIAL PERFUSION STRESS AND REST STUDY PROCEDURE PERFORMED: Exercise treadmill, converted to a pharmacologic stress and rest myocardial perfusion study with gating to assess ejection fraction and regional wall motion. ORDERING PROVIDER: Junior Cunningham MD. INDICATIONS: The patient is a 74-year-old male admitted with atypical chest discomfort. CARDIAC STRESS: The patient was able to exercise for 3 minutes 43 seconds on a standard Michael protocol, achieving 4.6 METS, suggesting moderate to severely reduced exercise capacity with an LIA of +31% with a blunted heart rate response, achieving a maximum heart rate of only 118 bpm (82% of his predicted maximum). He had a normal blood pressure response and moderate dyspnea but no anginal symptoms. His ECG with exercise shows no significant ST-segment shifts but because of the inadequate heart rate response, regadenoson 0.4 mg was given, again with a normal hemodynamic response and no anginal symptoms. His resting ECG is normal and there are no significant ST-segment shifts with stress. He had occasional PACs and PVCs in recovery but no complex ectopy. Per protocol, 25.2 millicuries of technetium-99m Myoview was injected and he was imaged 15 minutes later using a gated SPECT acquisition protocol. The day prior while at rest, he had been injected with 27.0 millicuries of technetium-99m Myoview and was imaged 15 minutes later, again using a gated SPECT protocol. FINDINGS: 1. Raw data. There is fairly good myocardial tracer uptake. The lung/heart ratio is normal at 0.22 with a normal TID ratio of 0.80. 2. Quantitated gated SPECT: Post-stress ejection fraction is 74% without any focal wall motion abnormality and specifically the inferior wall has normal contractility. The resting ejection fraction is 69% with a similar contraction pattern. The resting end-diastolic volume is mildly increased at 134 mL. 3. Myocardial perfusion imaging: Post-stress supine images show a ljlg-pn-ptivaewz perfusion defect in the proximal to mid inferior wall in a pattern consistent with diaphragmatic attenuation artifact, supported by its complete resolution on the prone images. There are no other perfusion defects and the resting images show an identical perfusion pattern without any areas of improvement. IMPRESSION: 1. Probable normal, low risk myocardial perfusion study for ischemia. 2. Indf-bx-jgnvsggi fixed proximal to mid inferior defect that resolves on prone imaging, most consistent with diaphragmatic attenuation artifact. There is no compelling evidence for any myocardial ischemia or previous myocardial infarction. 3. Normal left ventricular systolic function without focal abnormality. Resting end-diastolic volumes are mildly increased. 4. Moderate to severely reduced exercise capacity but without angina or ECG evidence of ischemia. He had occasional PACs and PVCs in recovery but no complex ectopy. Angel Patrice - RS/sera/BOUCHRA doc#: [id number]/job#: [id number] dd: 03/21/2025 13:12:00 dt: 03/21/2025 14:04:00 DICTATING MD/COPIES TO: Markel Jackson MD; Junior Cunningham MD COPIES MNE: KODI;
--- NOTE | 2025-03-21 15:04 | PM.DS.1 ---
History of Present Illness History of Present Illness Date Patient Seen: 03/21/25 Time Patient Seen: 15:04 Chief complaint: Tightness/pain in chest. Narrative: The patient was a 74-year-old male with a history of hyperlipidemia, metastatic prostate cancer, PE, and DVT who presented with chest pain. He awoke in the middle of the night with left-sided pain and diaphoresis. He was not short of breath, or nauseated. He denies any dyspeptic symptoms. He does note that the pain increased with deep breathing. He does have a history of bony metastases in his had right-sided chest pain in the past, although it felt different. Because of these symptoms being persistent, left-sided, and having some radiation to the neck, he proceeded to the ED where he would normal ECG and negative troponin. It was heart score is 4 and they requested an observational admission with a stress test. Patient has no history of heart disease, no family history of heart attack. He denies exertional chest pain or dyspnea. No recent URI symptoms or pneumonia symptoms such as rhinorrhea, fevers, or cough. ED course: Normal ECG and troponin. CTA does reveal diffuse osseous involvement in the thorax and ribcage of prostate cancer. Discharge Providers Provider Date of admission: 03/20/25 07:57 Discharge Date: 03/21/25 Primary care physician: Viky Alcala DO Discharge provider: Jacek Paul DO Summary Hospital Course Discharge Diagnosis: 1. Chest pain (pleuritic), active 2. Metastatic prostate CA, active. 3. Chronic PE/DVT, active. On anticoagulation. Warfarin. 4. HLD, stable. Hospital Course: This is a 74-year-old male admitted for further risk stratification of pleuritic chest pain. He was found on imaging to have multiple osseous lesions in his thorax and ribcage, presumably due to his metastatic prostate cancer. His pain did improve with Tylenol and supportive pain medications. He was recommended for stress testing due to an intermediate heart score of 4. This was deemed low risk and the patient was discharged home after normal stress testing. Time Spent with Patient Time spent: Greater than 30 minutes Exam Vital Signs (past 8 hours): - 03/21/25 08:00 03/21/25 13:02 Temperature 98.1 F 98.3 F Pulse Rate 73 89 Respiratory Rate 18 18 Blood Pressure 105/59 L 111/63 Pulse Oximetry 96 96 Oxygen Flow Rate 0 0 Oxygen Delivery Method Room Air Oxygen Flow Rate 0 Narrative Exam Narrative: NAD, alert and oriented, fluent speech, calm. Normocephalic skull, EOMI, anicteric sclera, symmetric pupils. Oropharynx unremarkable, no droop. Neck supple, midline trachea, no adenopathy. Lungs clear, normal rate and effort. Heart regular, no murmur gallop or rub. Abdomen is soft, non distended and non tender. Extremities are free of edema. Skin is free of rash or lesions. Joints are not swollen or deformed. Judgment appears to be normal. Objective Labs 03/20/25 05:10 03/20/25 05:10 Labs: Laboratory Results - last 24 hr 03/20/25 03/21/25 17:13 06:00 PT 21.8 H INR 2.0 H Troponin I < 0.012 PFSH Medical History Lab test negative for COVID-19 virus Back pain Strain of right Achilles tendon Seborrheic keratosis Cellulitis Sacral region somatic dysfunction Pelvic somatic dysfunction Prostate cancer metastatic to bone Warfarin anticoagulation Leg wound, left Cervical somatic dysfunction Physician orders for life-sustaining treatment (POLST) form indicates patient wish for zj-smb-citsbjmkjsn status Back stiffness Neck pain Neoplasm of prostate as incidental histologic finding in more than 5% of resected tissue (T1b) Surgical History History of total knee arthroplasty History of orthopedic surgery Social History household members: significant other alcohol intake: current substance use type: does not use Discharge Plan Discharge Plan Patient Disposition: Home Provider Discharge Comment: You were admitted to the hospital with chest pain, more than likely this is due to metastases to your rib bones found on CT. Your stress test was low risk (normal). No medication changes are recommended on discharge. Discharge orders & Medications Prescriptions: Continued warfarin 5 mg tablet See Rx Instructions PO DAILY Qty: 90 3RF Protocol: Dose Management Condition: Tuesday Dose/Route: 5 mg Instruction: 1 x 5 mg tablet Condition: Tuesday Dose/Route: 5 mg Instruction: 1 x 5 mg tablet Condition: Tuesday Dose/Route: 5 mg Instruction: 1 x 5 mg tablet Condition: Tuesday Dose/Route: 2.5 mg Instruction: 0.5 x 5 mg tablets Condition: Dose/Route: 5 mg Instruction: 1 x 5 mg tablet Condition: Tuesday Dose/Route: 2.5 mg Instruction: 0.5 x 5 mg tablets Condition: Tuesday Dose/Route: 2.5 mg Instruction: 0.5 x 5 mg tablets Protocol Text: Adjustment Start Date: Tuesday03/19/25 INR Value: 1.7 INR Date: 03/18/25 Recheck Date: 03/26/25 Rx Instructions: Take 1 tablets (5mg) 3 days a week then Take 5mg plus 2mg tab total (7mg) 4 days a week or as directed. warfarin 2 mg tablet See Rx Instructions PO DAILY Qty: 90 3RF Hold Instructions: Home Medication placed on hold at Doctor's office Protocol: Dose Management Condition: Tuesday Dose/Route: 5 mg Instruction: 1 x 5 mg tablet Condition: Tuesday Dose/Route: 5 mg Instruction: 1 x 5 mg tablet Condition: Tuesday Dose/Route: 5 mg Instruction: 1 x 5 mg tablet Condition: Tuesday Dose/Route: 2.5 mg Instruction: 0.5 x 5 mg tablets Condition: Dose/Route: 5 mg Instruction: 1 x 5 mg tablet Condition: Tuesday Dose/Route: 2.5 mg Instruction: 0.5 x 5 mg tablets Condition: Tuesday Dose/Route: 2.5 mg Instruction: 0.5 x 5 mg tablets Protocol Text: Adjustment Start Date: Tuesday03/19/25 INR Value: 1.7 INR Date: 03/18/25 Recheck Date: 03/26/25 Rx Instructions: Take 1 (2mg) tab with 1 (5mg) tab 4 days a week or as directed orally daily; Lupron Depot (3 month) 11.25 mg syringe kit 11.25 mg IM [id number] epinephrine [EpiPen] 0.3 mg/0.3 mL Auto-Injector 0.3 mg PRN PRN (Reason: Allergic Reaction) Follow up/Referrals: Viky Alcala DO [Primary Care Provider] - Diet/Activity/Treatments Diet: Diet as Tolerated and Regular Activity: As tolerated, no restrictions Visit Report/Discharge Packet Instructions: DI for Atypical Chest Pain, How to Prevent Falls Stand Alone Forms: Patient Portal/API, Stroke Signs & Symptoms Discharge Data Primary Care Provider: Viky Alcala Attending Provider: Junior Cunningham Admit Date/Time: 03/20/25 07:57 Quality VTE Deep Vein Thrombosis/Pulmonary Embolism Present on Admission: No
--- NOTE | 2025-03-21 15:41 | PC.NURSE ---
Day shift: Paperwork signed and all questions answered. Spouse in room for teachings. Encouraged Pt to f/u with PCP. Pt has all personal belongings and no new MD scripts on d/c.
== END 2025-03-21 15:42 | disposition home or self-care (01) ==
LOC: ED 07:38 → AC 07:59
PROVIDERS: Student in an Organized Health Care Education/Training Program; Admitting Provider Hospitalist; Emergency Provider Emergency Medicine; PCP Family Medicine; Referring Provider Emergency Medicine; Visit Provider Hospitalist
DX: R07.9 Chest pain, unspecified (principal); C61 Malignant neoplasm of prostate; Z86.718 Personal history of other venous thrombosis and embolism; Z86.711 Personal history of pulmonary embolism; D68.51 Activated protein C resistance; E78.5 Hyperlipidemia, unspecified; Z79.01 Long term (current) use of anticoagulants
CPT/HCPCS: 36415; 71045; 71275; 78452; 80053; 82550; 83690; 83735; 83880; 84484; 85025; 85610; 85730; 93005; 93017; 96374; 99283; 99284; G0378; A9502; J2785; Q9967

== ENCOUNTER → 2025-05-03 08:39 | Outpatient (CLI) | payer MEDICARE, SELFPAY ==
[2025-03-20 15:45] VITALS: BMI 21.7
[2025-05-03 10:03] LABS: Add Manual Diff / Slide Review NO; Hematocrit 31.1 % (41-53); Hemoglobin 10.7 g/dL (13.5-17.5); Lymphocytes Absolute Auto 400 /uL (1100-4500); Mean Corpuscular HGB Conc 34.3 % (30-36); Mean Corpuscular Hemoglobin 31.5 PG (26-34); Mean Corpuscular Volume 91.7 fL (80-100); Platelet Count 207 X10^3/uL (150-400)
[2025-05-03 10:04] LABS: Alanine Aminotransferase 9 IU/L (<50); Albumin 3.6 g/dL (3.5-5.0); Albumin Globulin Ratio 1.3 (1.0-2.8); Blood Urea Nitrogen 16 mg/dL (9-20); Calcium 8.8 mg/dL (8.4-10.2); Carbon Dioxide 28 mmol/L (22-32); Chloride 103 mmol/L (98-107); Estimated Glomerular Filt Rate > 60 mL/min (>60); Globulin 2.8 g/dL (1.7-4.1); Glucose 138 mg/dL (70-99); HEMOLYSIS < 15 (0-50); Potassium 3.8 mmol/L (3.4-5.1); Sodium 136 mmol/L (137-145); Total Protein 6.4 g/dL (6.3-8.2)
[2025-05-03 10:10] LABS: Alkaline Phosphatase 1393 U/L (38-126)
[2025-05-03 11:16] LABS: Prostate Specific Antigen 408 ng/mL (0.10-4.00)
== END ==
PROVIDERS: PCP Family Medicine; Referring Provider Physician Assistant; Visit Provider Physician Assistant
DX: C61 Malignant neoplasm of prostate (principal)
CPT/HCPCS: 36415; 80053; 84153; 85025

== ENCOUNTER 2025-07-05 11:49 | Inpatient (IN) | payer MEDICARE, SELFPAY ==
[2025-03-20 15:45] VITALS: BMI 21.7
[2025-07-05] VITALS (12 sets, daily range): BP systolic 93–156; BP diastolic 59–84; PULSE 70–74; RESP 16–20; TEMP 36.6–37.1; O2SAT 96–98; BMI 20.2
--- NOTE | 2025-07-05 11:56 | DI.RAD.S_ITS ---
PROCEDURE: XR HIP W PEL IF DONE RT 2V INDICATIONS: trauma TECHNIQUE: AP pelvis with lateral view(s) of the right hip(s). COMPARISON: [facility], CR, XR HIP W PEL IF DONE RT 2V, 02/08/2024, 16:15. FINDINGS: Bones: Significant interval progression of predominantly sclerotic bony metastatic disease, now extensive and diffuse. Acute oblique intertrochanteric/subtrochanteric fracture of the right hip with displacement. Soft tissues: The visualized bowel gas pattern is normal. No suspicious soft tissue calcifications. IMPRESSION: Significant interval progression of bony metastatic disease, predominantly sclerotic. 2. Acute oblique intertrochanteric/subtrochanteric fracture of the right hip with displacement. Dictated by: Timoteo Ceron M.D. on 07/05/2025 at 12:45 Approved by: Timoteo Ceron M.D. on 07/05/2025 at 12:46
--- NOTE | 2025-07-05 11:56 | DI.RAD.S_ITS ---
PROCEDURE: XR FEMUR RT MIN 2V INDICATIONS: trauma TECHNIQUE: 2 views of the femur were acquired. COMPARISON: [facility], CR, XR HIP W PEL IF DONE RT 2V, 02/08/2024, 16:15. [facility], CR, XR HIP W PEL RT 2V, 07/05/2025, 12:04. FINDINGS: Bones: Significant interval progression of sclerotic bony metastatic disease. Oblique intertrochanteric/subtrochanteric fracture of the right hip with mild displacement. Total right knee arthroplasty with no evidence of hardware failure or loosening. No distal fractures. Soft tissues: No suspicious soft tissue calcifications or masses. IMPRESSION: 1. Significant interval progression of bony metastatic disease. 2. Oblique intertrochanteric/subtrochanteric fracture of the right hip. Dictated by: Timoteo Ceron M.D. on 07/05/2025 at 12:43 Approved by: Timoteo Ceron M.D. on 07/05/2025 at 12:45
--- NOTE | 2025-07-05 11:58 | ED.FALL ---
HPI - Fall General Chief Complaint: Fall Stated Complaint: GLF,right upper leg pain/deformity Time Seen by Provider: 07/05/25 11:52 History of Present Illness HPI Narrative: This is a 74-year-old male who arrives by EMS. He has a history of metastatic prostate cancer and is on hospice care. Patient says that today he lost his balance and fell onto his right side, he now has pain in the right hip and upper thigh. EMS noted a deformity as well there. He was transported here, he has received morphine and ketamine IM prior to arrival. The ketamine dose with some dissociated the patient was alert and oriented when he arrived. Patient says that he did not hit his head. Hospice is aware that he was brought in. Has a history of factor 5 Leiden and venous thromboembolism he is on warfarin. Related Data Home Medications ?Medication ?Instructions ?Recorded ?Confirmed epinephrine 0.3 mg/0.3 mL 0.3 mg PRN PRN Allergic Reaction 08/21/19 05/16/25 injection, auto-injector (EpiPen) leuprolide (3 month) 11.25 mg (3 11.25 mg IM [id number] 08/31/23 05/16/25 month) intramuscular syringe kit (Lupron Depot) Chary-177 vipivotide tetraxetan 27 200 mci IV Q6W 03/27/25 05/16/25 mCi/mL (1,000 MBq/mL) IV soln (Pluvicto) Previous Rx's ?Medication ?Instructions ?Recorded warfarin 2 mg tablet See Rx Instructions PO DAILY #90 01/24/25 tabs warfarin 5 mg tablet See Rx Instructions PO DAILY #90 01/24/25 tabs temazepam 15 mg capsule 15 mg PO BEDTIME PRN sleep #30 caps 05/16/25 Allergies Allergy/AdvReac Type Severity Reaction Status Date / Time bee venom protein (honey bee) Allergy Unknown Verified 05/16/25 07:38 Patient History Medical History Back pain Back stiffness Cellulitis Cellulitis of right leg Cervical somatic dysfunction Factor V Leiden History of venous thromboembolism Lab test negative for COVID-19 virus Leg wound, left Neck pain Neoplasm of prostate as incidental histologic finding in more than 5% of resected tissue (T1b) Pelvic somatic dysfunction Physician orders for life-sustaining treatment (POLST) form indicates patient wish for yv-gdj-fdzamxsifma status Prostate cancer metastatic to bone Sacral region somatic dysfunction Seborrheic keratosis Strain of right Achilles tendon Warfarin anticoagulation Surgical History History of orthopedic surgery History of total knee arthroplasty Family History Father GI bleed Social History household members: significant other Smoking Status: Never smoker alcohol intake: current substance use type: does not use alcohol intake frequency: holidays/special occasions only Exam Initial Vital Signs Initial Vital Signs: Vital Signs Temperature 97.8 F 07/05/25 11:53 Pulse Rate 71 07/05/25 11:53 Respiratory Rate 16 07/05/25 11:53 Blood Pressure 156/69 H 07/05/25 11:53 Pulse Oximetry 97 07/05/25 11:53 Oxygen Delivery Method Room Air 07/05/25 11:53 Const Other: Patient appears to be in no distress alert and oriented [facility] Other: Normocephalic atraumatic pupils are equal and reactive Neck Other: Supple and not tender Back/Spine/Pelvis Other: Pelvis is stable to rock Neuro Other: Swelling and tenderness over the lateral/proximal thigh on the right. He has intact pulses in the right foot intact sensation and movement in the right lower extremity. Course Orders Ordered: ED Orders 07/05/25 11:56 XR femur RT min 2V Stat XR hip w pel RT 2V Stat 07/05/25 11:57 BMP [Basic Metabolic Panel] Stat CBC Auto Diff [Complete Blood Count AUTO DIFF] Stat Prothrombin Time INR Stat 07/05/25 13:08 Consult to Orthopedic Surgery Stat 07/05/25 13:26 Consult to Occupational Therapy Evaluate & Treat Consult to Physical Therapy Evaluate & Treat 07/06/25 05:00 Basic Metabolic Panel Routine Complete Blood Count AUTO DIFF Routine Prothrombin Time INR Routine Acetaminophen (Acetaminophen 325 Mg Tablet) 650 mg PO Q6H PRN PRN Reason: Fever/Mild Pain (1-3) Hydromorphone HCl (Hydromorphone Hcl 0.5 Mg/0.5 Ml Syringe) 0.5 mg IV Q2H PRN PRN Reason: Pain, Severe (7-10) Dextrose/Sodium Chloride (Dextrose 5%-0.9% Ns) 1,000 mls @ 100 mls/hr IV CONT YESSENIA Last Infusion: 07/05/25 15:53 Dose: 100 mls/hr Documented By: Infusion: 07/05/25 14:50 Dose: 0 mls/hr Documented By: Admin: 07/05/25 13:51 Dose: 100 mls/hr Documented By: MINDY Naloxone HCl (Naloxone 0.4 Mg/Ml Vial) 0.2 mg IV Q2MIN PRN PRN Reason: Opiate Reversal Ondansetron HCl (Ondansetron 4 Mg/2 Ml Inj) 4 mg IV Q8HR PRN PRN Reason: Nausea And Vomiting Oxycodone HCl (Oxycodone Ir 5 Mg Tablet) 5 mg PO Q3H PRN PRN Reason: Pain, Moderate (4-6) Sodium Chloride (Sodium Chloride 0.9% Flush) 10 ml IV PRN PRN PRN Reason: Flush Sodium Chloride (Sodium Chloride 0.9% Flush) 10 ml IV BID [facility] Discontinued Medications Phytonadione 5 mg/ Sodium (Chloride) 100.5 mls @ 201 mls/hr IV NOW ONE Stop: 07/05/25 14:03 Last Admin: 07/05/25 15:30 Dose: 201 mls/hr Documented By: Ferric Sodium Gluconate 125 mg (/ Sodium Chloride) 110 mls @ 110 mls/hr IV NOW ONE Stop: 07/05/25 15:18 Consultations Consultation #1: Discussed with Dr. Prado, [facility] [place]. If patient needs to be admitted for repair of hip fracture hospice will have to be revoked, they can take him back after this. Consultation #2: Discussed with Orthopedic, Dr. De León, we will consult, likely will need repair of hip fracture. Consultation #3: Discussed with hospitalist, , who accepts the patient Vital Signs Vital signs: Vital Signs - 8 hr 07/05/25 11:53 07/05/25 11:55 07/05/25 12:00 Temperature 97.8 F Pulse Rate 71 73 70 Respiratory Rate 16 Blood Pressure 156/69 H Pulse Oximetry 97 97 97 Oxygen Delivery Method Room Air 07/05/25 12:30 07/05/25 12:35 07/05/25 12:35 Temperature Pulse Rate 72 71 Respiratory Rate Blood Pressure 134/59 L Pulse Oximetry 97 97 Oxygen Delivery Method 07/05/25 13:00 07/05/25 13:00 07/05/25 13:30 Temperature Pulse Rate 72 Respiratory Rate Blood Pressure 125/63 125/62 Pulse Oximetry 98 Oxygen Delivery Method 07/05/25 13:30 Temperature Pulse Rate 72 Respiratory Rate Blood Pressure Pulse Oximetry 97 Oxygen Delivery Method MDM - Fall Lab Data Lab results narrative: INR is prolonged consistent with his anticoagulation. 07/05/25 11:57 07/05/25 11:57 Labs: Lab Results 07/05/25 Range/Units 11:57 WBC 6.6 (4.5-11.0) X10^3/uL RBC 2.66 L (4.5-5.9) X10^6/uL Hgb 8.2 L (13.5-17.5) g/dL Hct 24.1 L (41-53) % MCV 90.9 (80-100) fL MCH 31.0 (26-34) PG MCHC 34.1 (30-36) % RDW 19.4 H (11.6-14.8) % Plt Count 59 L (150-400) X10^3/uL Neut % (Auto) 83.0 H (50-75) % Lymph % (Auto) 8.4 L (25-40) % [place] % (Auto) 8.1 (3-14) % Eos % (Auto) 0.4 L (2-4) % Baso % (Auto) 0.1 (0-2) % Neut # (Auto) 5400 (5406-6508) /uL Lymph # (Auto) 600 L (1201-5707) /uL [place] # (Auto) 500 (0-900) /uL Eos # (Auto) 0 (0-450) /uL Baso # (Auto) 0 (0-100) /uL PT 21.1 H (9.4-12.5) SECONDS INR 1.9 H (0.9-1.3) Sodium 131 L (137-145) mmol/L Potassium 3.8 (3.4-5.1) mmol/L Chloride 99 (98-107) mmol/L Carbon Dioxide 28 (22-32) mmol/L BUN 21 H (9-20) mg/dL Creatinine 0.58 L (0.66-1.25) mg/dL Estimated GFR > 60 (>60) mL/min BUN/Creatinine Ratio 36.2 H (6-22) Glucose 96 (70-99) mg/dL Calcium 8.3 L (8.4-10.2) mg/dL Imaging Data Extremity x-ray #1: My Impression: Independently reviewed x-rays of the right hip with AP pelvis and right femur. There is an intertrochanteric femur fracture Radiologist's Impression: [address] [address] XRay Report Signed Patient: Patrice Ortiz MR#: [id number] : 1950 Acct:[id number] Age/Sex: 74 / M Date of Service: 07/05/25 Loc: ED Accession Number: [id number] Procedure: XR hip w pel RT 2V Ordering Provider: Wilber Bernstein MD PROCEDURE: XR HIP W PEL IF DONE RT 2V INDICATIONS: trauma TECHNIQUE: AP pelvis with lateral view(s) of the right hip(s). COMPARISON: [facility], , XR HIP W PEL IF DONE RT 2V, 02/08/2024, 16:15. FINDINGS: Bones: Significant interval progression of predominantly sclerotic bony metastatic disease, now extensive and diffuse. Acute oblique intertrochanteric/subtrochanteric fracture of the right hip with displacement. Soft tissues: The visualized bowel gas pattern is normal. No suspicious soft tissue calcifications. IMPRESSION: Significant interval progression of bony metastatic disease, predominantly sclerotic. 2. Acute oblique intertrochanteric/subtrochanteric fracture of the right hip with displacement. Dictated by: Timoteo Ceron M.D. on 07/05/2025 at 12:45 Approved by: Timoteo Ceron M.D. on 07/05/2025 at 12:46 [facility] Narrative Medical decision making narrative: 74-year-old hospice patient who is anticoagulated for thromboembolic disease and factor 5 Leiden. He has a right hip fracture after a ground level fall. Did not have a head injury, he will be admitted to the hospitalist service with Orthopedics consulting. Patient came to us from hospitalist, hospitalist has been revoked for the purposes of admission and repair of his hip fracture. Anticipating discharge back on hospice Discharge Plan Departure Patient Disposition: Admitted As Inpatient Clinical Impression: Fracture of hip, right, closed Qualifiers: Encounter type: initial encounter Qualified Code(s): S72.001A - Fracture of unspecified part of neck of right femur, initial encounter for closed fracture Admit Date/Time: 07/05/25 13:56 Admit Provider: Nikia Watkins
[2025-07-05 12:07] LABS: Add Manual Diff / Slide Review NO; Hematocrit 24.1 % (41-53); Hemoglobin 8.2 g/dL (13.5-17.5); Lymphocytes Absolute Auto 600 /uL (1100-4500); Mean Corpuscular HGB Conc 34.1 % (30-36); Mean Corpuscular Hemoglobin 31.0 PG (26-34); Mean Corpuscular Volume 90.9 fL (80-100); Platelet Count 59 X10^3/uL (150-400)
[2025-07-05 12:15] LABS: INR 1.9 (0.9-1.3); Prothrombin Time 21.1 SECONDS (9.4-12.5)
[2025-07-05 12:18] LABS: Blood Urea Nitrogen 21 mg/dL (9-20); Calcium 8.3 mg/dL (8.4-10.2); Carbon Dioxide 28 mmol/L (22-32); Chloride 99 mmol/L (98-107); Estimated Glomerular Filt Rate > 60 mL/min (>60); Glucose 96 mg/dL (70-99); HEMOLYSIS < 15 (0-50); Potassium 3.8 mmol/L (3.4-5.1); Sodium 131 mmol/L (137-145)
--- NOTE | 2025-07-05 13:21 | P.HP_ITS ---
History of Present Illness History of Present Illness Date Patient Seen: 07/05/25 Time Patient Seen: 13:21 Chief complaint: R hip pain Narrative: This is a 74-year-old male with a history of metastatic prostate cancer currently on hospice, factor 5 Leiden hypercoagulability with previous PE/DVT and right leg cellulitis who presents to the ED after falling on the floor in his house today. He lost his balance, somewhat unusual for him, landing on the right hip. He has an oblique intertrochanteric/subtrochanteric fracture of the right hip. His PPS is quite high so he has made the decision to proceed with ORIF and to resume hospice after this hospitalization. He is known to have multiple bone metastasis. He has been on warfarin for many years after experiencing postoperative PE and DVT. The INR today is 1.9. This will be reversed with vitamin K. He understands that the risk of preop/intraop/postop recurrent PE is very high, that we will resume anticoagulation as soon as is considered safe from intraoperative/postoperative bleeding and that there could be a fatal outcome. Both he and his have considered that and feel that the risk is outweighed by his desire to maintain mobility despite being on hospice. [facility] Medical History (Updated 07/05/25 @ 14:13 by Nikia Watkins MD) History of venous thromboembolism Factor V Leiden Cellulitis of right leg Lab test negative for COVID-19 virus Back pain Strain of right Achilles tendon Seborrheic keratosis Cellulitis Sacral region somatic dysfunction Pelvic somatic dysfunction Prostate cancer metastatic to bone Warfarin anticoagulation Leg wound, left Cervical somatic dysfunction Physician orders for life-sustaining treatment (POLST) form indicates patient wish for bu-ehq-kliepsmdkfr status Back stiffness Neck pain Neoplasm of prostate as incidental histologic finding in more than 5% of resected tissue (T1b) Surgical History History of total knee arthroplasty History of orthopedic surgery Family History (Updated 07/05/25 @ 14:14 by Nikia Watkins MD) Father GI bleed Social History household members: significant other alcohol intake: current substance use type: does not use Meds Home Medications and Allergies Home Medications ?Medication ?Instructions ?Recorded ?Confirmed ?Type epinephrine 0.3 mg/0.3 mL 0.3 mg PRN PRN Allergic Reac tion 08/21/19 05/16/25 History injection, auto-injector (EpiPen) leuprolide (3 month) 11.25 mg (3 11.25 mg IM [id number] 08/31/23 05/16/25 History month) intramuscular syringe kit (Lupron Depot) warfarin 2 mg tablet See Rx Instructions PO DAILY #90 01/24/25 05/16/25 Rx tabs warfarin 5 mg tablet See Rx Instructions PO DAILY #90 01/24/25 05/16/25 Rx tabs Chary-177 vipivotide tetraxetan 27 200 mci IV Q6W 5 05/16/25 History mCi/mL (1,000 MBq/mL) IV soln (Pluvicto) temazepam 15 mg capsule 15 mg PO BEDTIME PRN sleep # 30 caps 05/16/25 05/16/25 Rx Allergies Allergy/AdvReac Type Severity Reaction Status Date / Time bee venom protein (honey bee) Allergy Unknown Verified 05/16/25 07:38 Review of Systems Review of Systems Narrative: Positive for loss of balance, hip pain. Negative for fevers, chills, sweats, chest pain, shortness breast, nausea, vomiting, abdominal pain, diarrhea, bleeding, rashes, joint pain, headaches, new allergies. Exam Vital Signs (past 8 hours): - 07/05/25 11:53 07/05/25 11:55 07/05/25 12:00 Temperature 97.8 F Pulse Rate 71 73 70 Respiratory Rate 16 Blood Pressure 156/69 H Pulse Oximetry 97 97 97 Oxygen Delivery Method Room Air 07/05/25 12:30 07/05/25 12:35 07/05/25 12:35 Temperature Pulse Rate 72 71 Respiratory Rate Blood Pressure 134/59 L Pulse Oximetry 97 97 Oxygen Delivery Method 07/05/25 13:00 07/05/25 13:00 Temperature Pulse Rate 72 Respiratory Rate Blood Pressure 125/63 Pulse Oximetry 98 Oxygen Delivery Method Oxygen Delivery Method Room Air Narrative Exam Narrative: Alert and oriented x3. No apparent distress. Very cachectic. Strong voice, strong will, supported by his . Pupils are equally round and reactive to light and accommodation. Extraocular muscles are intact. Sclerae are pink and nonicteric. Throat looks normal. No lymph nodes are felt head, neck, supraclavicular area. There is no thyromegaly. JVD is less than 6 cm. No carotid bruits are heard. Heart is regular rate and rhythm without murmur. Lungs are clear to auscultation bilaterally. Abdomen is soft, bowel sounds positive, very scaphoid, no organomegaly, nontender. Extremities have no ankle edema. The right hip is held in an externally rotated position. He has no right hip tenderness. Skin has no rash or jaundice. Neurologic exam: Deep tendon reflexes are symmetric. Motor function is 5/5 throughout. There is no tremor. Cranial nerves 2-12 test intact. Objective Labs 07/05/25 11:57 07/05/25 11:57 Labs: Laboratory Results - last 24 hr 07/05/25 11:57 WBC 6.6 RBC 2.66 L Hgb 8.2 L Hct 24.1 L MCV 90.9 MCH 31.0 MCHC 34.1 RDW 19.4 H Plt Count 59 L Neut % (Auto) 83.0 H Lymph % (Auto) 8.4 L [place] % (Auto) 8.1 Eos % (Auto) 0.4 L Baso % (Auto) 0.1 Neut # (Auto) 5400 Lymph # (Auto) 600 L [place] # (Auto) 500 Eos # (Auto) 0 Baso # (Auto) 0 PT 21.1 H INR 1.9 H Sodium 131 L Potassium 3.8 Chloride 99 Carbon Dioxide 28 BUN 21 H Creatinine 0.58 L Estimated GFR > 60 BUN/Creatinine Ratio 36.2 H Glucose 96 Calcium 8.3 L Assessment & Plan Assessment & Plan narrative: This is a 74-year-old male with a history of metastatic prostate cancer currently on hospice, factor 5 Leiden hypercoagulability with previous PE/DVT and right leg cellulitis who presents to the ED after falling on the floor in his house today. He lost his balance, somewhat unusual for him, landing on the right hip. He has an oblique intertrochanteric/subtrochanteric fracture of the right hip. His PPS is quite high so he has made the decision to proceed with ORIF and to resume hospice after this hospitalization. Right Hip Fracture * IM nail ORIF procedure planned for tomorrow per Dr. De León * Reverse warfarin effect with vitamin K * Plan to resume enoxaparin postop as soon as considered safe by Orthopedics. Factor 5 Leiden Coagulopathy * He has been on warfarin for many years after experiencing postoperative PE and DVT. * The INR today is 1.9. This will be reversed with vitamin K. * He understands that the risk of preop/intraop/postop recurrent PE is very high, that we will resume anticoagulation as soon as is considered safe from intraoperative/postoperative bleeding and that there could be a fatal outcome. Both he and his have considered that and feel that the risk is outweighed by his desire to maintain mobility despite being on hospice. Metastatic prostate cancer * Currently on hospice, which he will resume after the upcoming ORIF. Normocytic anemia * Hemoglobin 8.4, likely chronic related to cancer * IV iron infusion today. Likely to need post operative blood transfusion. Thrombocytopenia * Platelets 59, likely chronic related to cancer * Repeat platelets preop 07/06 and consider preop platelet transfusion if below 30-40 range. DVT prevention * Resume Lovenox when considered safe postoperatively. His is his backup decision maker. Time-Based Coding :: [TOTAL MINUTES] spent with patient and on the chart (including review of chart, obtaining history, exam, reviewing outside data, placing orders, documenting exam and treatment plan, and counseling patient) on [DATE].
[2025-07-05] MEDS: DEXTROSE 5%-0.9% NS 1,000 ML 100 ML IV (13:51)
--- NOTE | 2025-07-05 14:14 | PM.HP.IH.1 ---
History of Present Illness History of Present Illness Date Patient Seen: 07/05/25 Time Patient Seen: 13:30 Date of Onset of Symptoms: 07/04/25 Chief complaint: R hip pain Narrative: DOI: 07/05/2025 ALEM: fall 74 yo M with metastatic prostate cancer with bone mets, Factor V Leiden fell onto right side today. He had right hip pain and was unable to stand and was brought to the ER. He states that he did have prior hip pain but was able to ambulate. He denies pain elsewhere. PE: wd/wn/nad RLE: skin intact. Lower extremity is in a shortened and externally rotated position. Well healed surgical incision at knee. SILT s/s/t/dp/sp. Fires ta/gs/ehl/fhl. Knee is NTTP. DP pulse is 2 + R hip radiographs and R femur radiographs: Displaced Intertrochanteric hip fracture in the setting of mets throughout femur with well seated total knee components. [facility] Medical History Back pain Back stiffness Cellulitis Cellulitis of right leg Cervical somatic dysfunction Factor V Leiden History of venous thromboembolism Lab test negative for COVID-19 virus Leg wound, left Neck pain Neoplasm of prostate as incidental histologic finding in more than 5% of resected tissue (T1b) Pelvic somatic dysfunction Physician orders for life-sustaining treatment (POLST) form indicates patient wish for rr-tza-jgnkechweav status Prostate cancer metastatic to bone Sacral region somatic dysfunction Seborrheic keratosis Strain of right Achilles tendon Warfarin anticoagulation Surgical History History of orthopedic surgery History of total knee arthroplasty Family History Father GI bleed Social History household members: significant other alcohol intake: current substance use type: does not use Meds Home Medications and Allergies Home Medications ?Medication ?Instructions ?Recorded ?Confirmed ?Type epinephrine 0.3 mg/0.3 mL 0.3 mg PRN PRN Allergic Reaction 08/21/19 05/16/25 History injection, auto-injector (EpiPen) leuprolide (3 month) 11.25 mg (3 11.25 mg IM [id number] 08/31/23 05/16/25 History month) intramuscular syringe kit (Lupron Depot) warfarin 2 mg tablet See Rx Instructions PO DAILY #90 01/24/25 05/16/25 Rx tabs warfarin 5 mg tablet See Rx Instructions PO DAILY #90 01/24/25 05/16/25 Rx tabs Chary-177 vipivotide tetraxetan 27 200 mci IV Q6W 03/27/25 05/16/25 History mCi/mL (1,000 MBq/mL) IV soln (Pluvicto) temazepam 15 mg capsule 15 mg PO BEDTIME PRN sleep #30 caps 05/16/25 05/16/25 Rx Allergies Allergy/AdvReac Type Severity Reaction Status Date / Time bee venom protein (honey bee) Allergy Unknown Verified 05/16/25 07:38 Exam Vital Signs (past 8 hours): - 07/05/25 11:53 07/05/25 11:55 07/05/25 12:00 Temperature 97.8 F Pulse Rate 71 73 70 Respiratory Rate 16 Blood Pressure 156/69 H Pulse Oximetry 97 97 97 Oxygen Delivery Method Room Air 07/05/25 12:30 07/05/25 12:35 07/05/25 12:35 Temperature Pulse Rate 72 71 Respiratory Rate Blood Pressure 134/59 L Pulse Oximetry 97 97 Oxygen Delivery Method 07/05/25 13:00 07/05/25 13:00 07/05/25 13:30 Temperature Pulse Rate 72 Respiratory Rate Blood Pressure 125/63 125/62 Pulse Oximetry 98 Oxygen Delivery Method 07/05/25 13:30 07/05/25 14:00 07/05/25 14:00 Temperature Pulse Rate 72 73 Respiratory Rate Blood Pressure 112/61 Pulse Oximetry 97 97 Oxygen Delivery Method Oxygen Delivery Method Room Air Objective Labs 07/05/25 11:57 07/05/25 11:57 Labs: Laboratory Results - last 24 hr 07/05/25 11:57 WBC 6.6 RBC 2.66 L Hgb 8.2 L Hct 24.1 L MCV 90.9 MCH 31.0 MCHC 34.1 RDW 19.4 H Plt Count 59 L Neut % (Auto) 83.0 H Lymph % (Auto) 8.4 L [place] % (Auto) 8.1 Eos % (Auto) 0.4 L Baso % (Auto) 0.1 Neut # (Auto) 5400 Lymph # (Auto) 600 L [place] # (Auto) 500 Eos # (Auto) 0 Baso # (Auto) 0 PT 21.1 H INR 1.9 H Sodium 131 L Potassium 3.8 Chloride 99 Carbon Dioxide 28 BUN 21 H Creatinine 0.58 L Estimated GFR > 60 BUN/Creatinine Ratio 36.2 H Glucose 96 Calcium 8.3 L Assessment & Plan Assessment and plan (1) Fracture of hip, right, closed: Qualifiers: Encounter type: initial encounter Qualified Code(s): S72.001A - Fracture of unspecified part of neck of right femur, initial encounter for closed fracture Status: Acute Plan I discussed with the patient the risks, benefits and alternatives of surgical versus nonsurgical treatment. I have discussed with him the risks of surgical treatment to include but not limited to damage to arteries, veins, nerves, need for additional surgery, risks of blood clots, risks of bleeding risks of infection. I have answered all his questions. I have discussed with internal medicine doctor giving him vitamin K to decrease his INR. And also potentially the need for blood transfusion perioperatively. The patient will be admitted overnight for optimization and the patient was consented for operative fixation of his right intertrochanteric hip fracture. The plan is for long cephalomedullary nail placement. Time-Based Coding :: [TOTAL MINUTES] spent with patient and on the chart (including review of chart, obtaining history, exam, reviewing outside data, placing orders, documenting exam and treatment plan, and counseling patient) on [DATE]. PROFEE Manager Custom Document charge(s): No
--- NOTE | 2025-07-05 15:12 | PC.NURSE ---
D5W 0.9% fluids running @ 100ml/hr at time of d/c from ED to acute care.
[2025-07-05] MEDS: PHYTONADIONE (VIT K1) 5 MG in SODIUM CHLORIDE 0.9% 100 ML 201 MG IV (15:30)
[2025-07-05] MEDS: SODIUM FERRIC GLUCONAT/SUCROSE 125 MG in SODIUM CHLORIDE 0.9% 100 ML 110 MG IV (16:03)
--- NOTE | 2025-07-05 18:09 | PT-IP ANOTE ---
PT eval order received. EMR reviewed. pt with GLF and has a R hip fx. Pt is scheduled for surgery tomorrow. will d/c current PT eval order and will wait for new order after sx for precautions and weight bearing status. Hospitalist informed.
[2025-07-06] VITALS (19 sets, daily range): BP systolic 99–151; BP diastolic 46–70; PULSE 65–701; RESP 13–16; TEMP 36.2–37.9; O2SAT 92–98; BMI 20.2
--- NOTE | 2025-07-06 | DI.RAD.S_ITS ---
PROCEDURE: XR HIP W PEL IF DONE RT 2V INDICATIONS: RT HIP IMNAILLING TECHNIQUE: 15 operative views of the hip were acquired. COMPARISON: [facility], [place]ISHA, XR HIP W PEL RT 2V, 07/05/2025, 12:04. FINDINGS: 4 operative views demonstrate performance of ORIF of an intertrochanteric fracture of the right hip. IMPRESSION: Operative imaging utilized during ORIF of the right hip. Dictated by: Timoteo Ceron M.D. on 07/07/2025 at 10:11 Approved by: Timoteo Ceron M.D. on 07/07/2025 at 10:12
--- NOTE | 2025-07-06 | DI.RAD.S_ITS ---
PROCEDURE: XR FEMUR RT MIN 2V INDICATIONS: POST OP TECHNIQUE: 2 views of the femur were acquired. COMPARISON: [facility], CR, XR FEMUR RT MIN 2V, 07/05/2025, 12:04. FINDINGS: Bones: There is been interval intramedullary ashutosh and nail fixation of the femoral neck fracture which is unchanged in alignment. Diffuse sclerotic lesions are seen throughout the visible bones. Soft tissues: No suspicious soft tissue calcifications or masses. Postsurgical subcutaneous edema and emphysema is present. IMPRESSION: Expected postsurgical appearance without evidence of immediate complication. Dictated by: Nina Mmis M.D. on 07/06/2025 at 12:08 Approved by: Nina Mims M.D. on 07/06/2025 at 12:10
[2025-07-06] MEDS: DEXTROSE 5%-0.9% NS 1,000 ML 100 ML IV (01:46)
[2025-07-06 06:16] LABS: INR 1.5 (0.9-1.3); Prothrombin Time 16.4 SECONDS (9.4-12.5)
[2025-07-06 06:21] LABS: Blood Urea Nitrogen 15 mg/dL (9-20); Calcium 7.8 mg/dL (8.4-10.2); Carbon Dioxide 28 mmol/L (22-32); Chloride 102 mmol/L (98-107); Estimated Glomerular Filt Rate > 60 mL/min (>60); Glucose 106 mg/dL (70-99); HEMOLYSIS < 15 (0-50); Potassium 4.0 mmol/L (3.4-5.1); Sodium 130 mmol/L (137-145)
[2025-07-06 06:40] LABS: Add Manual Diff / Slide Review NO; Lymphocytes Absolute Auto 700 /uL (1100-4500); Mean Corpuscular HGB Conc 33.8 % (30-36); Mean Corpuscular Hemoglobin 30.4 PG (26-34); Mean Corpuscular Volume 90.0 fL (80-100); Platelet Count 55 X10^3/uL (150-400)
[2025-07-06 06:43] LABS: Hematocrit 18.8 % (41-53); Hemoglobin 6.3 g/dL (13.5-17.5)
--- NOTE | 2025-07-06 07:40 | PM.PN.1 ---
Subjective Subjective Date Patient Seen: 07/06/25 Interval history: Chief complaint: R hip pain Narrative: This is a 74-year-old male with a history of metastatic prostate cancer currently on hospice, factor 5 Leiden hypercoagulability with previous PE/DVT and right leg cellulitis who presents to the ED after falling on the floor in his house today. He lost his balance, somewhat unusual for him, landing on the right hip. He has an oblique intertrochanteric/subtrochanteric fracture of the right hip. His PPS is quite high so he has made the decision to proceed with ORIF and to resume hospice after this hospitalization. He is known to have multiple bone metastasis. He has been on warfarin for many years after experiencing postoperative PE and DVT. The INR today is 1.9. This will be reversed with vitamin K. He understands that the risk of preop/intraop/postop recurrent PE is very high, that we will resume anticoagulation as soon as is considered safe from intraoperative/postoperative bleeding and that there could be a fatal outcome. Both he and his have considered that and feel that the risk is outweighed by his desire to maintain mobility despite being on hospice. 07/06/2025: This morning's hemoglobin had dropped from 8.2 down to 6.3 so a blood transfusion was started before surgery. He received 1 or 2 more units of packed red blood cells during surgery. The platelets remain stable at 55. The INR was 1.5 so additional vitamin K was given this morning and very little bleeding was noted during the surgery. Meds Home Medications and Allergies Home Medications ?Medication ?Instructions ?Recorded ?Confirmed ?Type epinephrine 0.3 mg/0.3 mL 0.3 mg PRN PRN Allergic Reaction 08/21/19 05/16/25 History injection, auto-injector (EpiPen) leuprolide (3 month) 11.25 mg (3 11.25 mg IM [id number] 08/31/23 05/16/25 History month) intramuscular syringe kit (Lupron Depot) warfarin 2 mg tablet See Rx Instructions PO DAILY #90 01/24/25 05/16/25 Rx tabs warfarin 5 mg tablet See Rx Instructions PO DAILY #90 01/24/25 05/16/25 Rx tabs Chary-177 vipivotide tetraxetan 27 200 mci IV Q6W 03/27/25 05/16/25 History mCi/mL (1,000 MBq/mL) IV soln (Pluvicto) temazepam 15 mg capsule 15 mg PO BEDTIME PRN sleep #30 caps 05/16/25 05/16/25 Rx Narrative Exam Narrative: Alert and oriented x3. No apparent distress. Very cachectic. Sclerae are pink and nonicteric. supraclavicular area. There is no thyromegaly. JVD is less than 6 cm. No carotid bruits are heard. Heart is regular rate and rhythm without murmur. Lungs are clear to auscultation bilaterally. Abdomen is very scaphoid Extremities have no ankle edema. Intact dressings are noted on the upper lateral right hip and lower right thigh just above the knee. Skin has no rash or jaundice. Assessment & Plan Assessment & Plan narrative: This is a 74-year-old male with a history of metastatic prostate cancer currently on hospice, factor 5 Leiden hypercoagulability with previous PE/DVT and right leg cellulitis who presents to the ED after falling on the floor in his house today. He lost his balance, somewhat unusual for him, landing on the right hip. He has an oblique intertrochanteric/subtrochanteric fracture of the right hip. His PPS is quite high so he has made the decision to proceed with ORIF and to resume hospice after this hospitalization. Right Hip Fracture IM nail ORIF procedure today per Dr. De León Reversed warfarin effect with vitamin K, cleared by Orthopedics to begin Lovenox on postop day 1. 07/07. Factor 5 Leiden Coagulopathy He has been on warfarin for many years after experiencing postoperative PE and DVT. The INR today is 1.5. This was reversed with a second dose of vitamin K. He understands that the risk of preop/intraop/postop recurrent PE is very high, that we will resume anticoagulation as soon as is considered safe from intraoperative/postoperative bleeding and that there could be a fatal outcome. Both he and his have considered that and feel that the risk is outweighed by his desire to maintain mobility despite being on hospice. Metastatic prostate cancer Currently on hospice, which he will resume at home Normocytic anemia Hemoglobin 8.4, then down to 6.3, likely chronic related to cancer IV iron infusion 07/05. Perioperative 2 or 3 units of pRBC given on 07/06. Follow. Thrombocytopenia Platelets 59, likely chronic related to cancer Repeat platelets preop 07/06 at 55 and consider preop platelet transfusion if below 20 range. DVT prevention Resume Lovenox when considered safe postoperatively. His is his backup decision maker. Exam Vital Signs (past 8 hours): Oxygen Delivery Method Room Air Oxygen Flow Rate 0 Objective Labs 07/06/25 12:17 07/06/25 05:40 Labs: Laboratory Results - last 24 hr 07/05/25 07/05/25 07/06/25 11:57 19:20 05:40 WBC 6.6 5.6 RBC 2.66 L 2.09 L Hgb 8.2 L 6.3 L* Hct 24.1 L 18.8 L* MCV 90.9 90.0 MCH 31.0 30.4 MCHC 34.1 33.8 RDW 19.4 H 19.7 H Plt Count 59 L 55 L Neut % (Auto) 83.0 H 78.1 H Lymph % (Auto) 8.4 L 13.0 L [place] % (Auto) 8.1 8.0 Eos % (Auto) 0.4 L 0.8 L Baso % (Auto) 0.1 0.1 Neut # (Auto) 5400 4400 Lymph # (Auto) 600 L 700 L [place] # (Auto) 500 400 Eos # (Auto) 0 0 Baso # (Auto) 0 0 PT 21.1 H 16.4 H INR 1.9 H 1.5 H Sodium 131 L 130 L Potassium 3.8 4.0 Chloride 99 102 Carbon Dioxide 28 28 BUN 21 H 15 Creatinine 0.58 L 0.60 L Estimated GFR > 60 > 60 BUN/Creatinine Ratio 36.2 H 25.0 H Glucose 96 106 H Calcium 8.3 L 7.8 L Blood Type A Positive Antibody Screen Negative Crossmatch See Detail [facility] Medical History Back pain Back stiffness Cellulitis Cellulitis of right leg Cervical somatic dysfunction Factor V Leiden History of venous thromboembolism Lab test negative for COVID-19 virus Leg wound, left Neck pain Neoplasm of prostate as incidental histologic finding in more than 5% of resected tissue (T1b) Pelvic somatic dysfunction Physician orders for life-sustaining treatment (POLST) form indicates patient wish for nu-xvb-ealechygyjd status Prostate cancer metastatic to bone Sacral region somatic dysfunction Seborrheic keratosis Strain of right Achilles tendon Warfarin anticoagulation Surgical History History of orthopedic surgery History of total knee arthroplasty Family History Father GI bleed Social History household members: spouse Smoking Status: Never smoker alcohol intake: current substance use type: does not use Assessment & Plan Assessment and plan (1) Fracture of hip, right, closed: Qualifiers: Encounter type: initial encounter Qualified Code(s): S72.001A - Fracture of unspecified part of neck of right femur, initial encounter for closed fracture Status: Acute Time-Based Coding :: [TOTAL MINUTES] spent with patient and on the chart (including review of chart, obtaining history, exam, reviewing outside data, placing orders, documenting exam and treatment plan, and counseling patient) on [DATE]. Quality VTE Deep Vein Thrombosis/Pulmonary Embolism Present on Admission: No
[2025-07-06] MEDS: PHYTONADIONE (VIT K1) 5 MG in SODIUM CHLORIDE 0.9% 100 ML 201 MG IV (08:11)
--- NOTE | 2025-07-06 08:28 | PC.NURSE ---
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 Notified of Temp elevation this am and pt has a lower BP, he has had low BP since he has been here. Temp prior to leaving for OR was 100.3 BP 99/46. Temp yesterday had been normal, she reports she will tell surgeon and anesth. 15 min VS were taken early prior to pt leaving for OR. Rest of blood transfusion and VS record will be on anesthesia record. A second IV line was started and Vit K is infusing. Pt left to OR with both blood and Vit K infusing.
--- NOTE | 2025-07-06 08:32 | PM.PREOP ---
Pre-operative Note COVID-19 COVID-19 status: Not tested Interval Note History & Physical reviewed/Exam performed by Physician: Yes Changes to H&P: Yes H&P completed within 30 days and has changed as indicated here:: H/H was lower today. Will transfuse prior to surgery.
--- NOTE | 2025-07-06 08:52 | SUR.HOLD ---
Patient to holding area on bed with assistance of inpatient nurse due to infusion of blood products. First unit of PRBCs infusing without difficulty. Oral temp 100.2 but asymptomatic. Patient AAO x 3. Manual blood pressure to LUE 110/68.
[2025-07-06] MEDS: SODIUM CHLORIDE 0.9% 1,000 ML 84 ML IV ×3 (08:56→20:48)
[2025-07-06] MEDS: TRANEXAMIC ACID 1,000 MG in SODIUM CHLORIDE 0.9% 100 ML 200 MG IV (09:09)
--- NOTE | 2025-07-06 09:27 | SUR.OPER ---
Supine on padded [place] table with bilateral legs secured in padded positioning boots and suspended in positioning spars, operative leg in traction per surgeon. Head on one pillow. Arm on non-operative side secured on padded armboard <90 degrees abduction. Arm on operative side padded and resting across chest then secured with tape over sheet. Padded perineal post in place per surgeon.
--- NOTE | 2025-07-06 10:57 | CM.DANOTE ---
Addendum entered by BIANCA Kwong 07/06/25 15:29: ADD: patient back to floor from surgery around 1400 and went by room and pt sleeping soundly and spouse not bedside. PT eval still pending. Plan: SW to follow closely for PT eval and recommendations to confirm safe plan of home with Hospice and mode of transport needed at d/c. BF Original Note: Patient is a 74 yo male who was admitted INPT Status on 07/05/25 for GLF with hip pain. Pt has MCR and AARP for insurance and his PCP is Dr. Viky Alcala at . EMR was reviewed. Per MD, pt with current prostate CA with mets to the bone and had GLF with R Hip Fx. Per Ortho Consult, recommend surgical intervention as pt had been very mobile prior to fall and goal is to regain mobility and ambulation. Pt taken to OR this morning 07/06/25. Pt recently admitted a couple months ago in February 2025 and was able to discharge home via spouse POV and no further needs. Per MD and RN, pt currently open with Hospice at home and pt and spouse adamant that their goal is hip repair for mobility and then return home with Hospice services to resume. Pt and spouse confirmed they already have Hospice DME in the home including hospital bed, urinal, BSC, etc.. Spouse was bedside at admission and will return when pt is done with surgery and brought back to the floor. SW called [facility] and updated them on pt's admission and plan to repair and return home with Hospice. SW faxed clinicals to review and they will continue following for keeping pt on their schedule once pt discharges the hospital. Plan: SW to follow closely for PT eval post surgery to confirm pt's mobility towards plan of home with ongoing Hospice services and spouse support. SW to complete bedside assessment when pt back on the floor for surgery and PT eval to determine needs. BIANCA Kwong Discharge Planning/Care Management CM Discharge Assessment Start: 07/05/25 14:31 Freq: Status: Active Protocol: Document 07/06/25 10:48 BF (Rec: 07/06/25 10:57 BF [id number]) Discharge Planning Assessment Assigned Discharge BIANCA Agosto Draw Bench Operator Provider Viky Alcala Insurance Medicare DPOA/Assigned spouse Chayito Designee Name Contact Information [phone] Advance Directives? Yes: POLST Advance Directives Yes on File History Provided By Patient,Significant Other,Medical Record Has Patient been No admitted in last 30 days? Prior Living House Arrangements Household Members spouse Type of Relies on Others transporation used prior to admit Independent with ADL Yes 's Is patient alert and Yes oriented? Needs Assistance Meal Prep,Managing Medications,Home Chores / Shopping With Caregiver for No Another DME Already Rented / Hospital Bed,Bedside Commode Owned Comment Currently open with [facility] Comment Goal is return home with [facility] Barriers to No Discharge Comment Pending PT eval and mobility Discharge Plan Hospice Transportation Spouse Arrangement Additional Comment Keep [facility] updated, follow for PT eval post surg to confirm safe plan of home Whiteboard Updated Yes in Patient Room with name and ext. # of Partner Alliance Manager Review Status In Process Please Provide Date 07/06/25 Initial DC Assessment Was Performed Next Review Type Continued Stay Review
[2025-07-06] MEDS: ACETAMINOPHEN IV 1,000 MG/100 ML VIAL 400 MG IV (11:12)
[2025-07-06 12:23] LABS: Hematocrit 23.1 % (41-53); Hemoglobin 7.9 g/dL (13.5-17.5)
[2025-07-06] MEDS: hydrOXYzine 50 MG/ML INJ 25 MG IM (12:35)
--- NOTE | 2025-07-06 12:59 | SUR.PHASEI ---
Placed patient's gold wedding band back to left hand, fourth finger.
--- NOTE | 2025-07-06 14:19 | PM.OP.1 ---
Operative Date/Time/Diagnoses Date of procedure: 07/06/25 Time of procedure: 09:45 Pre-op diagnosis: Right pathologic intertrochanteric hip fracture Post-op diagnosis: same Procedure & Clinicians Procedure: Cephalomedullary nail right hip Same procedure(s) as scheduled: Yes Surgeon: Tori De León Click Yes if Unassisted: Yes Anesthesia Type: General Operative Notes Findings: Right intertrochanteric hip fracture in the setting of bony metastasis Closure Type: primary Specimen(s): none sent Applied: implant(s) (Trigen inter logan 10 mm x 44 cm 125? what right tri Gen InterTAN integrated interlocking lag screws 100 and time mm lag screw 105 mm compression screw trigeminy LP screw 5 mm by 60 mmTried an LP screw 4.5 mm x 47.5 mm) Estimated Blood Loss (mL): 100 Blood products transfused: packed red blood cells Procedure in detail: Implants: 1) Trigen intertan nail 10 mm x 44 cm 125? right 2) triGen InterTAN integrated interlocking lag screws 110 mm lag screw 105 mm compression screw 3) trigen LP screw 5 mm by 60 mm 4) Trigen LP screw 4.5 mm x 47.5 mm The patient was met in the preoperative hold area where his right hip was signed as the operative extremity. He was taken back to the operating room and general anesthesia was induced. He then was transitioned to the [place] table. Webril was placed around his bilateral feet and [place] was placed around his feet. He then was placed into the boots. Ensuring that these were well seated. Intraoperative fluoroscopy was utilized to ensure an adequate reduction. With traction and adduction. The patient was prepped and draped in the standard sterile fashion. A time-out was performed confirming the correct patient correct procedure correct extremity and initials on the operative site. The patient was given 2 g of IV Ancef and 1 g of TXA prior to incision. A 3 cm vertical incision was made proximal to the greater trochanter dissection was taken down through the IT band and a guide pin was placed on the tip of the greater trochanter. This was confirmed in both AP and lateral planes using fluoroscopy. Next the guidewire was placed and the opening Reamer was utilized. I then tried to pass a ball-tipped guidewire down the femur and significant difficulty because the femur was filled with bony sclerotic metastasis. I then used an opening Reamer to ream into the canal as I could not pass the guidewire. I reamed up to 10 mm there was significant chatter I then was able to place the guidewire all the way down to the physeal scar. This was in good position then I again used the opening Reamer to ream the total distance of the femur. I was able to ream up to an 11.5 mm. I then was able to pass the nail. A long nail was chosen since he does have known bony metastasis. After the nail was placed I then placed the cephalomedullary screws under image guidance. I ensured the tip to apex distance was less than 25 mm in both planes. Then utilizing perfect [place] technique I placed 2 interlocking screws distally. Final fluoroscopic imaging was obtained. I then irrigated copiously and closed with 0 Vicryl in the ITB band 2 0 Vicryl subcuticularly and true. The patient was awoken and taken to the PACU in stable condition. All counts were correct as in the end of the case. Complications: none Post-operative Condition: stable Disposition: PACU Plan for aftercare: Recommend Lovenox starting on 07/07/2025. And SCDs to bilateral lower extremities for blood clot prevention. Admission to Internal Medicine Service. Weight-bearing as tolerated. Recommended physical therapy. Recommend postoperative CBC to evaluate need for further transfusion.
[2025-07-06] MEDS: ACETAMINOPHEN 325 MG TABLET 650 MG PO (15:59)
--- NOTE | 2025-07-06 16:43 | PT-IP ANOTE ---
PT eval order received. EMR reviewed. checked on pt and pt refused PT. stated that he wants to just do it tomorrow.
[2025-07-06] MEDS: DOCUSATE 100 MG CAPSULE PO (20:48)
[2025-07-07 01:00] VITALS: BP 97/56; PULSE 75; RESP 18; TEMP 36.7; O2SAT 95
[2025-07-07] MEDS: ACETAMINOPHEN 325 MG TABLET 650 MG PO ×4 (04:57→22:08)
[2025-07-07 06:05] LABS: Add Manual Diff / Slide Review NO; Lymphocytes Absolute Auto 600 /uL (1100-4500); Mean Corpuscular HGB Conc 34.2 % (30-36); Mean Corpuscular Hemoglobin 29.5 PG (26-34); Mean Corpuscular Volume 86.2 fL (80-100); Platelet Count 51 X10^3/uL (150-400)
[2025-07-07 06:09] LABS: Hemoglobin 6.8 g/dL (13.5-17.5)
[2025-07-07 06:10] LABS: Hematocrit 19.8 % (41-53)
--- NOTE | 2025-07-07 07:29 | P.PN_ITS ---
Subjective Subjective Date Patient Seen: 07/07/25 Interval history: This is a 74-year-old male with a history of metastatic prostate cancer currently on hospice, factor 5 Leiden hypercoagulability with previous PE/DVT and right leg cellulitis who presents to the ED after falling on the floor in his house today. He lost his balance, somewhat unusual for him, landing on the right hip. He has an oblique intertrochanteric/subtrochanteric fracture of the right hip. His PPS is quite high so he has made the decision to proceed with ORIF and to resume hospice after this hospitalization. He is known to have multiple bone metastasis. He has been on warfarin for many years after experiencing postoperative PE and DVT. The INR today is 1.9. This will be reversed with vitamin K. He understands that the risk of preop/intraop/postop recurrent PE is very high, that we will resume anticoagulation as soon as is considered safe from intraoperative/postoperative bleeding and that there could be a fatal outcome. Both he and his have considered that and feel that the risk is outweighed by his desire to maintain mobility despite being on hospice. 07/06/2025: This morning's hemoglobin had dropped from 8.2 down to 6.3 so a blood transfusion was started before surgery. He received 1 or 2 more units of packed red blood cells during surgery. The platelets remain stable at 55. The INR was 1.5 so additional vitamin K was given this morning and very little bleeding was noted during the surgery. 07/07/2025: The hemoglobin has dropped from 7.9 down to 6.8 so another unit of packed red blood cells will be given today. The sodium was 130 yesterday. There is minimal blood visible staining the lower right leg dressing. He has no new complaints. Meds Home Medications and Allergies Home Medications ?Medication ?Instructions ?Recorded ?Confirmed ?Type epinephrine 0.3 mg/0.3 mL 0.3 mg PRN PRN Allergic Reaction 9 05/16/25 History injection, auto-injector (EpiPen) leuprolide (3 month) 11.25 mg (3 11.25 mg IM [id number] 08/31/23 05/16/25 H istory month) intramuscular syringe kit (Lupron Depot) warfarin 2 mg tablet See Rx Instructions PO DAILY #90 01/24/25 05/16/25 Rx tabs warfarin 5 mg tablet See Rx Instructions PO DAILY #90 01/24/25 05/16/25 Rx tabs Chary-177 vipivotide tetraxetan 27 200 mci IV Q6W 03/27/25 05/16/25 History mCi/mL (1,000 MBq/mL) IV soln (Pluvicto) temazepam 15 mg capsule 15 mg PO BEDTIME PRN sleep #30 caps 04/2405/16/25 Rx Narrative Exam Narrative: Alert and oriented x3. No apparent distress. Very cachectic. Sclerae are pink and nonicteric. Heart is regular rate and rhythm without murmur. Lungs are clear to auscultation bilaterally. Abdomen is very scaphoid Extremities have no ankle edema. Intact dressings are noted on the upper lateral right hip and lower right thigh just above the knee. Minimal old blood visible in the lower dressing. Skin has no rash or jaundice. Assessment & Plan Assessment & Plan narrative: This is a 74-year-old male with a history of metastatic prostate cancer currently on hospice, factor 5 Leiden hypercoagulability with previous PE/DVT and right leg cellulitis who presents to the ED after falling on the floor in his house today. He lost his balance, somewhat unusual for him, landing on the right hip. He has an oblique intertrochanteric/subtrochanteric fracture of the right hip. His PPS is quite high so he has made the decision to proceed with ORIF and to resume hospice after this hospitalization. Right Hip Fracture * IM nail ORIF procedure 07/[address] De León * Reversed warfarin effect with vitamin K, cleared by Orthopedics to begin Lovenox on postop day 1. 07/07. Factor 5 Leiden Coagulopathy * He has been on warfarin for many years after experiencing postoperative PE and DVT. * He understands that the risk of preop/intraop/postop recurrent PE is very high, that we will resume anticoagulation as soon as is considered safe from intraoperative/postoperative bleeding and that there could be a fatal outcome. Both he and his have considered that and feel that the risk is outweighed by his desire to maintain mobility despite being on hospice.Metastatic prostate cancer * Currently on hospice, which he will resume at home Normocytic anemia * Hemoglobin 8.4, then down to 6.3, likely chronic related to cancer * IV iron infusion 07/05. Perioperative 2 or 3 units of pRBC given on 07/06. Follow. Thrombocytopenia * Platelets 59, likely chronic related to cancer * Repeat platelets preop 07/07 at 51 and consider transfusion if below 20 range. DVT prevention * Resume Lovenox on 07/07 per ortho. .His is his backup decision maker. Exam Vital Signs (past 8 hours): - 07/07/25 01:00 Temperature 98.1 F Pulse Rate 75 Respiratory Rate 18 Blood Pressure 97/56 L Pulse Oximetry 95 Oxygen Delivery Method Room Air Oxygen Flow Rate 0 Objective Labs 07/07/25 05:13 07/06/25 05:40 Labs: Laboratory Results - last 24 hr 07/05/25 07/06/25 07/07/25 19:20 12:17 05:13 WBC 6.6 RBC 2.30 L Hgb 7.9 L 6.8 L* Hct 23.1 L 19.8 L* MCV 86.2 D MCH 29.5 MCHC 34.2 RDW 19.9 H Plt Count 51 L Neut % (Auto) 83.2 H Lymph % (Auto) 8.4 L [place] % (Auto) 8.0 Eos % (Auto) 0.3 L Baso % (Auto) 0.1 Neut # (Auto) 5500 Lymph # (Auto) 600 L [place] # (Auto) 500 Eos # (Auto) 0 Baso # (Auto) 0 Blood Type A Positive Antibody Screen Negative Crossmatch See Detail [facility] Medical History Back pain Back stiffness Cellulitis Cellulitis of right leg Cervical somatic dysfunction Factor V Leiden History of venous thromboembolism Lab test negative for COVID-19 virus Leg wound, left Neck pain Neoplasm of prostate as incidental histologic finding in more than 5% of resected tissue (T1b) Pelvic somatic dysfunction Physician orders for life-sustaining treatment (POLST) form indicates patient wish for gc-hfk-[id number] status Prostate cancer metastatic to bone Sacral region somatic dysfunction Seborrheic keratosis Strain of right Achilles tendon Warfarin anticoagulation Surgical History History of orthopedic surgery History of total knee arthroplasty Family History Father GI bleed Social History household members: spouse Smoking Status: Never smoker alcohol intake: current substance use type: does not use Assessment & Plan Time-Based Coding :: [TOTAL MINUTES] spent with patient and on the chart (including review of chart, obtaining history, exam, reviewing outside data, placing orders, documenting exam and treatment plan, and counseling patient) on [DATE]. Quality VTE Deep Vein Thrombosis/Pulmonary Embolism Present on Admission: No
[2025-07-07 08:00] VITALS: BP 115/59; PULSE 81; RESP 17; TEMP 37.1; O2SAT 95
[2025-07-07] MEDS: DOCUSATE 100 MG CAPSULE PO ×2 (08:26→22:09)
[2025-07-07] MEDS: SODIUM CHLORIDE 0.9% 1,000 ML 84 ML IV (08:26)
[2025-07-07 09:17] VITALS: BP 116/60; PULSE 60; RESP 14; TEMP 36.8
[2025-07-07 09:35] VITALS: BP 112/64; PULSE 85; RESP 15; TEMP 36.9
[2025-07-07] MEDS: ENOXAPARIN 100 MG/ML SYRINGE 70 MG SUBCUT ×2 (11:15→22:12)
[2025-07-07 12:30] VITALS: BP 107/51; PULSE 86; RESP 15; TEMP 37.1
--- NOTE | 2025-07-07 13:12 | PM.PNPO.1 ---
Subjective Subjective Date Patient Seen: 07/07/25 Interval history: 74 yo M s/p R cephalomedullary nail for pathologic intertrochanteric hip fracture POD # 1. He states his pain is well controlled. He says he had a temp of 100F. Currently no f/c/ns. Denies chest pain, shortness of breath. he has not been up with PT yet. Lovenox was restarted. VSS; afebrile RLE: proximal dressings c/d/i. Distal dressing with some blood present. No drainage. SILT s/s/t/dp/sp Fires ta/gs/ehl/fhl DP 2+. Exam Vital Signs (past 8 hours): - 07/07/25 08:00 07/07/25 09:17 07/07/25 09:35 Temperature 98.7 F 98.3 F 98.4 F Pulse Rate 81 60 85 Respiratory Rate 17 14 15 Blood Pressure 115/59 L 116/60 112/64 Pulse Oximetry 95 Oxygen Flow Rate 0 07/07/25 12:30 Temperature 98.7 F Pulse Rate 86 Respiratory Rate 15 Blood Pressure 107/51 L Pulse Oximetry Oxygen Flow Rate Oxygen Delivery Method Room Air Oxygen Flow Rate 0 Objective Labs 07/07/25 05:13 07/06/25 05:40 Labs: Laboratory Results - last 24 hr 07/05/25 07/07/25 19:20 05:13 WBC 6.6 RBC 2.30 L Hgb 6.8 L* Hct 19.8 L* MCV 86.2 D MCH 29.5 MCHC 34.2 RDW 19.9 H Plt Count 51 L Neut % (Auto) 83.2 H Lymph % (Auto) 8.4 L [place] % (Auto) 8.0 Eos % (Auto) 0.3 L Baso % (Auto) 0.1 Neut # (Auto) 5500 Lymph # (Auto) 600 L [place] # (Auto) 500 Eos # (Auto) 0 Baso # (Auto) 0 Blood Type A Positive Antibody Screen Negative Crossmatch See Detail [facility] Medical History Back pain Back stiffness Cellulitis Cellulitis of right leg Cervical somatic dysfunction Factor V Leiden History of venous thromboembolism Lab test negative for COVID-19 virus Leg wound, left Neck pain Neoplasm of prostate as incidental histologic finding in more than 5% of resected tissue (T1b) Pelvic somatic dysfunction Physician orders for life-sustaining treatment (POLST) form indicates patient wish for vs-uxx-msbgwttxhpq status Prostate cancer metastatic to bone Sacral region somatic dysfunction Seborrheic keratosis Strain of right Achilles tendon Warfarin anticoagulation Surgical History History of orthopedic surgery History of total knee arthroplasty Family History Father GI bleed Social History household members: spouse Smoking Status: Never smoker alcohol intake: current substance use type: does not use Assessment & Plan Post-op Postoperative Procedures: Procedures Operation Date: 07/06/25 09:00 Actual Procedure Side Surgeon p Intramedullary Nailing Femur Right Tori De León DO Postoperative day: 1 Postoperative status: doing well Postoperative plan narrative: - WBAT with PT - Lovenox for DVT prophylaxis. - Out of bed to chair TID Time Spent With Patient Time with patient: less than 15 minutes Quality VTE Deep Vein Thrombosis/Pulmonary Embolism Present on Admission: No
--- NOTE | 2025-07-07 14:42 | CM.DPNOTE ---
Addendum entered by BIANCA Mendoza 07/07/25 15:33: per PT, rec home with hospice. no further DME. rec [facility], may improve by tomorrow by that's current rec. pt in agreement. no [facility]ulance places open Tuesday, will call Tuesday am for scheduling once coordinated SOC with [facility] Original Note: DCP Note FOOD SERVICE TECHNICIAN reviewed EMR spoke with Caren from [facility]- tracking on plan. will f/u with Nata tomorrow about time for SOC for readmit into hospice. date/time pending PT pending as of 1444 FOOD SERVICE TECHNICIAN met with pt in room. confirms preference for plan home with hospice. waiting on PT for safety planning at home for transport/other DME recs. will f/u with team tomorrow on the plan P: potential dc tomorrow home with spouse support and [facility] to follow. pending SOC and therapy eval. CM team will continue to follow closely for DCP coordination BIANCA Mendoza
--- NOTE | 2025-07-07 15:13 | PT.IPTN ---
Current Diagnoses Fracture of unspecified part of neck of right femur, initial encounter for closed fracture (07/05/25) Surgery Performed Operation Date: 07/06/25 09:00 Actual Procedures p Intramedullary Nailing Femur(Right) - Tori De León, DO Physical Therapy Treatment Note M2 PT-IP Current Condition Start: 07/07/25 10:13 Freq: NEEDED Status: Active Protocol: Document 07/07/25 10:14 KJ (Rec: 07/07/25 10:33 KJ [id number]) Physical Therapy Current Condition Current Condition Evaluation Date 07/07/25 Treatment Diagnosis impaired mobility s/p hip fx M3 PT-IP Subjective Start: 07/07/25 10:13 Freq: NEEDED Status: Active Protocol: Document 07/07/25 10:14 KJ (Rec: 07/07/25 10:33 KJ [id number]) Subjective Physical Therapy Visit Type Type Initial Evaluation Visit Start Time 10:12 Visit Stop Time 10:32 Physical Therapy Visit Comments Patient Comments Does not know why he fell, thinks he blacked out.. Main concern is feeling weak. Patient Goals To get back home Therapy Pain Assessment Pain When Pain Assessed At Rest Pain Present Pain Present Pain Reported Location Right Hip Description Aching Pain Management Modification of Treatment Techniques M4 PT-IP Mobility and Gait Start: 07/07/25 10:13 Freq: NEEDED Status: Active Protocol: Document 07/07/25 10:14 KJ (Rec: 07/07/25 10:33 KJ [id number]) PT-Transfer Assessment Comments Mobility Comments Pt getting blood transfusion; refusing to move at this time due to pain. He states he refused the pain medication this morning but will take it in order to participate in therapy after the transfusion is completed. M5 PT-IP Objective Assessments Start: 07/07/25 10:13 Freq: NEEDED Status: Active Protocol: Document 07/07/25 10:14 KJ (Rec: 07/07/25 10:33 KJ [id number]) Gross Range of Motion Upper Extremity ROM Assessment Within Functional Limits Lower Extremity ROM Impairments hip Strength Upper Extremity Strength Assessment Within Functional Limits Lower Extremity Strength Assessment Right Impaired Hip refuses to move hip due to pain Comments Strength Comments R leg held in ext rotation, pt states he cannot move it to bring it to neutral Sensation Assessment Comments Sensation Comments reports longstanding intermittant tingling in both hands and feet M6 PT-IP Treatment Start: 07/07/25 10:13 Freq: NEEDED Status: Active Protocol: Document 07/07/25 10:14 KJ (Rec: 07/07/25 10:33 KJ [id number]) Physical Therapy Treatment Exercises Exercises Ankle Pumps,Gluteal Sets,Quad Sets Education Education Provided Weight Bearing Status M7 PT-IP Assessment and Plan Start: 07/07/25 10:13 Freq: NEEDED Status: Active Protocol: Document 07/07/25 10:14 KJ (Rec: 07/07/25 10:33 KJ [id number]) PT Summary Assessment and Plan Potential Rehabilitation Good Potential Status of Condition Evolving at Evaluation Summary Impairments Pain,ROM,Strength,Bed Mobility Assessment Summary pain interferes with mobility Goals Bed Mobility Goal Standby Assistance Transfer Goal Standby Assistance Gait Distance 50 Days to Meet Goals 5 Frequency of Treatment Frequency Of Once a Day Treatment Treatment Plan Physical Therapy Bed Mobility Training,Transfer Training,Gait Training, Treatment Plan Therapeutic Exercise Other bed mobility, transfers, ambulation Recommendations and Next Treatment Focus Weight Bearing Status Weight Bearing Weight Bear as Tolerated Status Discharge Recommendations Other Discharge to be determined once pain is controlled Recommendations
--- NOTE | 2025-07-07 15:14 | PT.IPTN ---
Current Diagnoses Fracture of unspecified part of neck of right femur, initial encounter for closed fracture (07/05/25) Surgery Performed Operation Date: 07/06/25 09:00 Actual Procedures p Intramedullary Nailing Femur(Right) - Tori De León, DO Physical Therapy Treatment Note M2 PT-IP Current Condition Start: 07/07/25 10:13 Freq: NEEDED Status: Active Protocol: Document 07/07/25 10:14 KJ (Rec: 07/07/25 10:33 KJ [id number]) Physical Therapy Current Condition Current Condition Evaluation Date 07/07/25 Treatment Diagnosis impaired mobility s/p hip fx M3 PT-IP Subjective Start: 07/07/25 10:13 Freq: NEEDED Status: Active Protocol: Document 07/07/25 10:14 KJ (Rec: 07/07/25 10:33 KJ [id number]) Subjective Physical Therapy Visit Type Type Initial Evaluation Visit Start Time 10:12 Visit Stop Time 10:32 Physical Therapy Visit Comments Patient Comments Does not know why he fell, thinks he blacked out.. Main concern is feeling weak. Patient Goals To get back home Therapy Pain Assessment Pain When Pain Assessed At Rest Pain Present Pain Present Pain Reported Location Right Hip Description Aching Pain Management Modification of Treatment Techniques M4 PT-IP Mobility and Gait Start: 07/07/25 10:13 Freq: NEEDED Status: Active Protocol: Document 07/07/25 10:14 KJ (Rec: 07/07/25 10:33 KJ [id number]) PT-Transfer Assessment Comments Mobility Comments Pt getting blood transfusion; refusing to move at this time due to pain. He states he refused the pain medication this morning but will take it in order to participate in therapy after the transfusion is completed. M5 PT-IP Objective Assessments Start: 07/07/25 10:13 Freq: NEEDED Status: Active Protocol: Document 07/07/25 10:14 KJ (Rec: 07/07/25 10:33 KJ [id number]) Gross Range of Motion Upper Extremity ROM Assessment Within Functional Limits Lower Extremity ROM Impairments hip Strength Upper Extremity Strength Assessment Within Functional Limits Lower Extremity Strength Assessment Right Impaired Hip refuses to move hip due to pain Comments Strength Comments R leg held in ext rotation, pt states he cannot move it to bring it to neutral Sensation Assessment Comments Sensation Comments reports longstanding intermittant tingling in both hands and feet M6 PT-IP Treatment Start: 07/07/25 10:13 Freq: NEEDED Status: Active Protocol: Document 07/07/25 10:14 KJ (Rec: 07/07/25 10:33 KJ [id number]) Physical Therapy Treatment Exercises Exercises Ankle Pumps,Gluteal Sets,Quad Sets Education Education Provided Weight Bearing Status M7 PT-IP Assessment and Plan Start: 07/07/25 10:13 Freq: NEEDED Status: Active Protocol: Document 07/07/25 10:14 KJ (Rec: 07/07/25 10:33 KJ [id number]) PT Summary Assessment and Plan Potential Rehabilitation Good Potential Status of Condition Evolving at Evaluation Summary Impairments Pain,ROM,Strength,Bed Mobility Assessment Summary pain interferes with mobility Goals Bed Mobility Goal Standby Assistance Transfer Goal Standby Assistance Gait Distance 50 Days to Meet Goals 5 Frequency of Treatment Frequency Of Once a Day Treatment Treatment Plan Physical Therapy Bed Mobility Training,Transfer Training,Gait Training, Treatment Plan Therapeutic Exercise Other bed mobility, transfers, ambulation Recommendations and Next Treatment Focus Weight Bearing Status Weight Bearing Weight Bear as Tolerated Status Discharge Recommendations Other Discharge to be determined once pain is controlled Recommendations
--- NOTE | 2025-07-07 15:58 | PT.IIE ---
Current Diagnoses Fracture of unspecified part of neck of right femur, initial encounter for closed fracture (07/05/25) Surgery Performed Operation Date: 07/06/25 09:00 Actual Procedures p Intramedullary Nailing Femur(Right) - Tori De León DO Surgical History (Last Reviewed 07/05/25 @ 14:16 by Tori De León DO) History of orthopedic surgery History of total knee arthroplasty Medical History (Last Reviewed 07/05/25 @ 14:16 by Tori De León DO) Back pain Back stiffness Cellulitis Cellulitis of right leg Cervical somatic dysfunction Factor V Leiden History of venous thromboembolism Lab test negative for COVID-19 virus Leg wound, left Neck pain Neoplasm of prostate as incidental histologic finding in more than 5% of resected tissue (T1b) Pelvic somatic dysfunction Physician orders for life-sustaining treatment (POLST) form indicates patient wish for ne-bxl-qlweoswnhlx status Prostate cancer metastatic to bone Sacral region somatic dysfunction Seborrheic keratosis Strain of right Achilles tendon Warfarin anticoagulation Physical Therapy Inpatient Evaluation/Re-Eval M1 PT/OT-IP Prior Functional Status Start: 07/07/25 10:13 Freq: NEEDED Status: Active Protocol: Document 07/07/25 10:14 KJ (Rec: 07/07/25 10:33 KJ [id number]) Medical Review Prior Functional Status Mobility and Gait Ambulates without AD. Could walk several miles. Had a transport chair Activities of Daily Indep ADLs Living and IADL's Social History Household Members spouse Living Arrangements House Number of Stairs To none Enter/Railing? Additional Social Hospice has provided everything as assistive devices, History Comment but he doesn't use them M2 PT-IP Current Condition Start: 07/07/25 10:13 Freq: NEEDED Status: Active Protocol: Document 07/07/25 10:14 KJ (Rec: 07/07/25 10:33 KJ [id number]) Physical Therapy Current Condition Current Condition Evaluation Date 07/07/25 Treatment Diagnosis impaired mobility s/p hip fx M3 PT-IP Subjective Start: 07/07/25 10:13 Freq: NEEDED Status: Active Protocol: Document 07/07/25 15:44 KJ (Rec: 07/07/25 15:58 KJ Desktop) Subjective Physical Therapy Visit Type Type Treatment Note Visit Start Time 15:07 Visit Stop Time 15:49 Physical Therapy Visit Comments Patient Comments Less pain initially, pain increasing with activity. Patient Goals To go home Therapy Pain Assessment Pain When Pain Assessed During Mobility Pain Present Pain Present Pain Reported Location Right Hip Description Aching,Throbbing Pain Behaviors Facial Grimacing,Holding Area Pain Management Re-positioning Techniques M4 PT-IP Mobility and Gait Start: 07/07/25 10:13 Freq: NEEDED Status: Active Protocol: Document 07/07/25 15:44 KJ (Rec: 07/07/25 15:58 KJ Desktop) PT-Bed Mobility Assessment Rolling Type of Rolling Roll to Left Level of Assist Moderate Assistance Supine to Sit Supine to Sit Moderate Assistance Scooting Scooting to Edge of Contact Guard Assistance Bed PT-Transfer Assessment Sit to and From Stand Sit to and from Moderate Assistance Stand Equipment Transfer Assistive Gait Belt,Front Wheeled Walker Device Transfers Transfer Destination Chair Transfer Technique Stand Step Pivot Transfer Ability Level of Assist Minimal Assistance Gait Assessment Gait Gait Assistance Contact Guard Assist Required: Distance (Feet) 15 Assistive Devices Assistive Device Gait Belt,Front Wheeled Walker Gait Deviations General Gait Pattern Decreased Stride Length,Flexed Trunk,Narrow Based Gait Factors Limiting Gait Function Factors Limiting Pain Gait Function Comments Gait Comments Verbal cuing for upright posture. Verbal cueing for hand placement on walker. Initial sit to stand from bed required bed to be elevated. Second bout of ambulation sit to stand from chair w/min assist. Very painful during activity. PT-Balance Assessment Sitting Balance and Reactions Static Sitting Good Balance Ability Dynamic Sitting Good Balance Ability Standing Balance and Reactions Static Standing Good Balance Ability Dynamic Standing Fair Balance Ability M5 PT-IP Objective Assessments Start: 07/07/25 10:13 Freq: NEEDED Status: Active Protocol: Document 07/07/25 15:44 KJ (Rec: 07/07/25 15:58 KJ Desktop) Orientation Orientation/Cognition Level of Alertness Alert Orientation Name,Age,Birthday,Month,Date,Year,Day of Week,Place, Situation Language Function No Deficits Noted Ability Safety Awareness Understands Safety Issues Memory Description No Deficits Noted M6 PT-IP Treatment Start: 07/07/25 10:13 Freq: NEEDED Status: Active Protocol: Document 07/07/25 15:44 KJ (Rec: 07/07/25 15:58 KJ Desktop) Physical Therapy Treatment Exercises Exercises Ankle Pumps,Gluteal Sets,Quad Sets Education Education Provided Weight Bearing Status,Safety Equipment Issued Equipment Type and Used his own walker Company Other Treatments Other Treatment Reviewed ther ex. Performed M7 PT-IP Assessment and Plan Start: 07/07/25 10:13 Freq: NEEDED Status: Active Protocol: Document 07/07/25 15:44 KJ (Rec: 07/07/25 15:58 KJ Desktop) PT Summary Assessment and Plan Potential Rehabilitation Excellent Potential Status of Condition Evolving at Evaluation Summary Impairments Pain,Strength,Bed Mobility,Transfers,Gait Progress Towards Slow Progress due to Pain Goals Assessment Summary Pt needs pain meds prior to therapy. He was able to ambulate a short distance but it was liited due to pain Goals Bed Mobility Goal Standby Assistance Transfer Goal Standby Assistance Gait Goal Standby Assistance Gait Distance 40 Days to Meet Goals 5 Frequency of Treatment Frequency Of Once a Day Treatment Treatment Plan Physical Therapy Bed Mobility Training,Transfer Training,Gait Training, Treatment Plan Therapeutic Exercise Other Pain meds prior to therapy Recommendations and Next Treatment Focus Weight Bearing Status Weight Bearing Weight Bear as Tolerated Status Recommendations To Nursing Amount of Assist 1 Person Assist Needed Discharge Recommendations PT Discharge Home Health Recommendations Transportation Needs Wheelchair/Cabulance at Discharge
[2025-07-07 19:00] VITALS: BP 137/72; PULSE 80; RESP 18; TEMP 37.1; O2SAT 98
[2025-07-07] MEDS: SODIUM CHLORIDE 0.9% FLUSH 10 ML IV (22:10)
[2025-07-08 05:34] LABS: Add Manual Diff / Slide Review NO; Hematocrit 21.3 % (41-53); Hemoglobin 7.2 g/dL (13.5-17.5); Lymphocytes Absolute Auto 700 /uL (1100-4500); Mean Corpuscular HGB Conc 33.9 % (30-36); Mean Corpuscular Hemoglobin 29.5 PG (26-34); Mean Corpuscular Volume 87.2 fL (80-100); Platelet Count 39 X10^3/uL (150-400)
[2025-07-08 05:39] LABS: Blood Urea Nitrogen 21 mg/dL (9-20); Calcium 7.6 mg/dL (8.4-10.2); Carbon Dioxide 25 mmol/L (22-32); Chloride 105 mmol/L (98-107); Estimated Glomerular Filt Rate > 60 mL/min (>60); Glucose 83 mg/dL (70-99); HEMOLYSIS < 15 (0-50); Potassium 3.6 mmol/L (3.4-5.1); Sodium 130 mmol/L (137-145)
[2025-07-08 06:07] LABS: Anisocytosis 1+
--- NOTE | 2025-07-08 07:51 | PM.DS.1 ---
History of Present Illness History of Present Illness Date Patient Seen: 07/08/25 Chief complaint: R hip pain Narrative: This is a 74-year-old male with a history of metastatic prostate cancer currently on hospice, factor 5 Leiden hypercoagulability with previous PE/DVT and right leg cellulitis who presents to the ED after falling on the floor in his house today. He lost his balance, somewhat unusual for him, landing on the right hip. He has an oblique intertrochanteric/subtrochanteric fracture of the right hip. His PPS is quite high so he has made the decision to proceed with ORIF and to resume hospice after this hospitalization. He is known to have multiple bone metastasis. He has been on warfarin for many years after experiencing postoperative PE and DVT. The INR today is 1.9. This will be reversed with vitamin K. He understands that the risk of preop/intraop/postop recurrent PE is very high, that we will resume anticoagulation as soon as is considered safe from intraoperative/postoperative bleeding and that there could be a fatal outcome. Both he and his have considered that and feel that the risk is outweighed by his desire to maintain mobility despite being on hospice. Discharge Providers Provider Date of admission: 07/05/25 13:56 Primary care physician: Viky Alcala DO Consults: 07/05/25 13:08 Consult to Orthopedic Surgery Stat Comment: Consulting Provider: Tori De León Reason for consultation: r hip fracture Has provider been notified: Yes 07/05/25 13:26 Consult to Occupational Therapy Evaluate & Treat Comment: Physician Instructions: Evaluate and treat Consult to Physical Therapy Evaluate & Treat Comment: Physician Instructions: Evaluate and Treat 07/06/25 13:21 Consult to Physical Therapy Evaluate & Treat Comment: Physician Instructions: Evaluate and Treat Discharge provider: Nikia Watkins MD Exam Vital Signs (past 8 hours): Oxygen Delivery Method Room Air Oxygen Flow Rate 0 Objective Labs 07/08/25 05:15 07/08/25 05:15 Labs: Laboratory Results - last 24 hr 07/05/25 07/08/25 19:20 05:15 WBC 4.9 RBC 2.45 L Hgb 7.2 L Hct 21.3 L MCV 87.2 MCH 29.5 MCHC 33.9 RDW 19.0 H Plt Count 39 L Neut % (Auto) 78.4 H Lymph % (Auto) 13.7 L [place] % (Auto) 5.9 Eos % (Auto) 1.5 L Baso % (Auto) 0.5 Neut # (Auto) 3900 Lymph # (Auto) 700 L [place] # (Auto) 300 Eos # (Auto) 100 Baso # (Auto) 0 Platelet Estimate Decreased on smear RBC Morphology See below Anisocytosis 1+ H Sodium 130 L Potassium 3.6 Chloride 105 Carbon Dioxide 25 BUN 21 H Creatinine 0.59 L Estimated GFR > 60 BUN/Creatinine Ratio 35.6 H Glucose 83 Calcium 7.6 L Blood Type A Positive Antibody Screen Negative Crossmatch See Detail [facility] Medical History Back pain Back stiffness Cellulitis Cellulitis of right leg Cervical somatic dysfunction Factor V Leiden History of venous thromboembolism Lab test negative for COVID-19 virus Leg wound, left Neck pain Neoplasm of prostate as incidental histologic finding in more than 5% of resected tissue (T1b) Pelvic somatic dysfunction Physician orders for life-sustaining treatment (POLST) form indicates patient wish for ng-hrh-yohstyyiizv status Prostate cancer metastatic to bone Sacral region somatic dysfunction Seborrheic keratosis Strain of right Achilles tendon Warfarin anticoagulation Surgical History History of orthopedic surgery History of total knee arthroplasty Family History Father GI bleed Social History household members: spouse Smoking Status: Never smoker alcohol intake: current substance use type: does not use Discharge Plan Discharge orders & Medications Prescriptions: No Action warfarin 5 mg tablet See Rx Instructions PO DAILY Qty: 90 3RF Protocol: Dose Management Condition: Tuesday (Week One) Dose/Route: 2.5 mg Instruction: 0.5 x 5 mg tablets Condition: Tuesday Dose/Route: 2.5 mg Instruction: 0.5 x 5 mg tablets Condition: Tuesday Dose/Route: 5 mg Instruction: 1 x 5 mg tablet Condition: Tuesday Dose/Route: Hold Instruction: No doses Condition: Dose/Route: Hold Instruction: No doses Condition: Tuesday Dose/Route: 2.5 mg Instruction: 0.5 x 5 mg tablets Condition: Tuesday Dose/Route: 2.5 mg Instruction: 0.5 x 5 mg tablets Condition: Tuesday ( Two) Dose/Route: 2.5 mg Instruction: 0.5 x 5 mg tablets Condition: Tuesday Dose/Route: 2.5 mg Instruction: 0.5 x 5 mg tablets Condition: Tuesday Dose/Route: 5 mg Instruction: 1 x 5 mg tablet Condition: Tuesday Dose/Route: 2.5 mg Instruction: 0.5 x 5 mg tablets Condition: Dose/Route: 5 mg Instruction: 1 x 5 mg tablet Condition: Tuesday Dose/Route: 2.5 mg Instruction: 0.5 x 5 mg tablets Condition: Tuesday Dose/Route: 2.5 mg Instruction: 0.5 x 5 mg tablets Protocol Text: Adjustment Start Date: Tuesday06/12/25 INR Value: 4.1 INR Date: 06/12/25 Recheck Date: 06/19/25 Rx Instructions: Take 1 tablets (5mg) 3 days a week then Take 5mg plus 2mg tab total (7mg) 4 days a week or as directed. warfarin 2 mg tablet See Rx Instructions PO DAILY Qty: 90 3RF Protocol: Dose Management Condition: Tuesday ( One) Dose/Route: 2.5 mg Instruction: 0.5 x 5 mg tablets Condition: Tuesday Dose/Route: 2.5 mg Instruction: 0.5 x 5 mg tablets Condition: Tuesday Dose/Route: 5 mg Instruction: 1 x 5 mg tablet Condition: Tuesday Dose/Route: Hold Instruction: No doses Condition: Dose/Route: Hold Instruction: No doses Condition: Tuesday Dose/Route: 2.5 mg Instruction: 0.5 x 5 mg tablets Condition: Tuesday Dose/Route: 2.5 mg Instruction: 0.5 x 5 mg tablets Condition: Tuesday ( Two) Dose/Route: 2.5 mg Instruction: 0.5 x 5 mg tablets Condition: Tuesday Dose/Route: 2.5 mg Instruction: 0.5 x 5 mg tablets Condition: Tuesday Dose/Route: 5 mg Instruction: 1 x 5 mg tablet Condition: Tuesday Dose/Route: 2.5 mg Instruction: 0.5 x 5 mg tablets Condition: Dose/Route: 5 mg Instruction: 1 x 5 mg tablet Condition: Tuesday Dose/Route: 2.5 mg Instruction: 0.5 x 5 mg tablets Condition: Tuesday Dose/Route: 2.5 mg Instruction: 0.5 x 5 mg tablets Protocol Text: Adjustment Start Date: Tuesday06/12/25 INR Value: 4.1 INR Date: 06/12/25 Recheck Date: 06/19/25 Rx Instructions: Take 1 (2mg) tab with 1 (5mg) tab 4 days a week or as directed orally daily; temazepam 15 mg capsule 15 mg PO BEDTIME PRN (Reason: sleep) Qty: 30 0RF epinephrine [EpiPen] 0.3 mg/0.3 mL Auto-Injector 0.3 mg IM PRN PRN (Reason: Allergic Reaction) morphine concentrate 100 mg/5 mL (20 mg/mL) solution 5 mg PO Q1H PRN (Reason: pain) Patient Comments: Initial dose 5 mg (0.25 ml) EVERY 1 HOUR NEEDED FOR PAIN/DYSPNEA, supervisor publications 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
[2025-07-08 09:00] VITALS: BP 114/62; PULSE 95; RESP 18; TEMP 37.2; O2SAT 98
[2025-07-08] MEDS: ACETAMINOPHEN 325 MG TABLET 650 MG PO (09:25)
[2025-07-08] MEDS: SODIUM CHLORIDE 0.9% FLUSH 10 ML IV (09:26)
--- NOTE | 2025-07-08 11:25 | P.PN_ITS ---
Subjective Subjective Date Patient Seen: 07/08/25 Interval history: This is a 74-year-old male with a history of metastatic prostate cancer currently on hospice, factor 5 Leiden hypercoagulability with previous PE/DVT and right leg cellulitis who presents to the ED after falling on the floor in his house today. He lost his balance, somewhat unusual for him, landing on the right hip. He has an oblique intertrochanteric/subtrochanteric fracture of the right hip. His PPS is quite high so he has made the decision to proceed with ORIF and to resume hospice after this hospitalization. He is known to have multiple bone metastasis. He has been on warfarin for many years after experiencing postoperative PE and DVT. The INR today is 1.9. This will be reversed with vitamin K. He understands that the risk of preop/intraop/postop recurrent PE is very high, that we will resume anticoagulation as soon as is considered safe from intraoperative/postoperative bleeding and that there could be a fatal outcome. Both he and his have considered that and feel that the risk is outweighed by his desire to maintain mobility despite being on hospice. 07/06/2025: This morning's hemoglobin had dropped from 8.2 down to 6.3 so a blood transfusion was started before surgery. He received 1 or 2 more units of packed red blood cells during surgery. The platelets remain stable at 55. The INR was 1.5 so additional vitamin K was given this morning and very little bleeding was noted during the surgery. 07/07/2025: The hemoglobin has dropped from 7.9 down to 6.8 so another unit of packed red blood cells will be given today. The sodium was 130 yesterday. There is minimal blood visible staining the lower right leg dressing. He has no new complaints. 07/08/2025: The hemoglobin is up to 7.2, from 6.8, after 1 unit of blood was given yesterday. The right upper thigh appears somewhat more swollen and he says he is having severe right hip pain. It does not look like compartment syndrome. We will increase his oxycodone dose to 10 mg and give him Percocet routinely every 6 hours. The pain worsened in the last 12 hours or so. Before trying physical therapy, when he was just lying in bed yesterday, he seemed to be more comfortable but with his efforts to regain mobility the pain has flared. He will need to stay another day to get that under better control before returning home on hospice early tomorrow morning. He had resumed Lovenox yesterday so that will be held for the next day or so. Meds Home Medications and Allergies Home Medications ?Medication ?Instructions ?Recorded ?Confirmed ?Type epinephrine 0.3 mg/0.3 mL 0.3 mg PRN PRN Allergic Reaction 9 05/16/25 History injection, auto-injector (EpiPen) leuprolide (3 month) 11.25 mg (3 11.25 mg IM [id number] 08/31/23 05/16/25 H istory month) intramuscular syringe kit (Lupron Depot) warfarin 2 mg tablet See Rx Instructions PO DAILY #90 01/24/25 05/16/25 Rx tabs warfarin 5 mg tablet See Rx Instructions PO DAILY #90 01/24/25 05/16/25 Rx tabs Chary-177 vipivotide tetraxetan 27 200 mci IV Q6W 03/27/25 05/16/25 History mCi/mL (1,000 MBq/mL) IV soln (Pluvicto) temazepam 15 mg capsule 15 mg PO BEDTIME PRN sleep #30 caps 04/2405/16/25 Rx Narrative Exam Narrative: Alert and oriented x3. No apparent distress. Very cachectic. Sclerae are pink and nonicteric. Heart is regular rate and rhythm without murmur. Lungs are clear to auscultation bilaterally. Abdomen is very scaphoid Extremities have no ankle edema. Intact dressings are noted on the upper lateral right hip and lower right thigh just above the knee. Contained bleeding visible under both dressings. There is slightly more swelling at the right upper thigh but this does not appear to be infected, compartment syndrome or more than the expected postoperative hematoma. Skin has no rash or jaundice. Assessment & Plan Assessment & Plan narrative: This is a 74-year-old male with a history of metastatic prostate cancer currently on hospice, factor 5 Leiden hypercoagulability with previous PE/DVT and right leg cellulitis who presents to the ED after falling on the floor in his house today. He lost his balance, somewhat unusual for him, landing on the right hip. He has an oblique intertrochanteric/subtrochanteric fracture of the right hip. His PPS is quite high so he has made the decision to proceed with ORIF and to resume hospice after this hospitalization. Right Hip Fracture * IM nail ORIF procedure 07/[address] De León * Reversed warfarin effect with vitamin K, cleared by Orthopedics to begin Lovenox on postop day 1. 07/07. * Lovenox placed on hold again on 07/08 after noting increased swelling at the right upper thigh, hemoglobin rising only to 7.2 with 1 unit of blood and increased pain complaint since resuming it yesterday. * 07/08 add Percocet 5/325 q.6 routinely and increase oxycodone to 10 mg q.3 hours as needed. Factor 5 Leiden Coagulopathy * He has been on warfarin for many years after experiencing postoperative PE and DVT. * He understands that the risk of preop/intraop/postop recurrent PE is very high, that we will resume anticoagulation as soon as is considered safe from intraoperative/postoperative bleeding and that there could be a fatal outcome. Both he and his have considered that and feel that the risk is outweighed by his desire to maintain mobility despite being on hospice. * Lovenox placed on hold again on 07/08 after noting increased swelling at the right upper thigh, hemoglobin rising only to 7.2 with 1 unit of blood and increased pain complaint since resuming it yesterday. Metastatic prostate cancer * Currently on hospice, which he will resume at home Normocytic anemia * Hemoglobin 8.4, then down to 6.3, likely chronic related to cancer * IV iron infusion 07/05. Perioperative 2 or 3 units of pRBC given on 07/06. * 1 unit PRBC given on 07/07, hemoglobin was 6.8, rising to 7.2 on 07/08 Thrombocytopenia * Platelets 59, likely chronic related to cancer * Repeat platelets preop 07/08 at 39 and consider transfusion if below 20 range. DVT prevention * Resumed Lovenox on 07/07 per ortho. Placed back on hold 07/08, see above. His is his backup decision maker. Exam Vital Signs (past 8 hours): - 07/08/25 09:00 Temperature 99.0 F Pulse Rate 95 H Respiratory Rate 18 Blood Pressure 114/62 Pulse Oximetry 98 Oxygen Flow Rate 0 Oxygen Delivery Method Room Air Oxygen Flow Rate 0 Objective Labs 07/08/25 05:15 07/08/25 05:15 Labs: Laboratory Results - last 24 hr 07/05/25 07/08/25 19:20 05:15 WBC 4.9 RBC 2.45 L Hgb 7.2 L Hct 21.3 L MCV 87.2 MCH 29.5 MCHC 33.9 RDW 19.0 H Plt Count 39 L Neut % (Auto) 78.4 H Lymph % (Auto) 13.7 L Randolph % (Auto) 5.9 Eos % (Auto) 1.5 L Baso % (Auto) 0.5 Neut # (Auto) 3900 Lymph # (Auto) 700 L Randolph # (Auto) 300 Eos # (Auto) 100 Baso # (Auto) 0 Platelet Estimate Decreased on smear RBC Morphology See below Anisocytosis 1+ H Sodium 130 L Potassium 3.6 Chloride 105 Carbon Dioxide 25 BUN 21 H Creatinine 0.59 L Estimated GFR > 60 BUN/Creatinine Ratio 35.6 H Glucose 83 Calcium 7.6 L Crossmatch See Detail [facility] Medical History Back pain Back stiffness Cellulitis Cellulitis of right leg Cervical somatic dysfunction Factor V Leiden History of venous thromboembolism Lab test negative for COVID-19 virus Leg wound, left Neck pain Neoplasm of prostate as incidental histologic finding in more than 5% of resected tissue (T1b) Pelvic somatic dysfunction Physician orders for life-sustaining treatment (POLST) form indicates patient wish for [id number] status Prostate cancer metastatic to bone Sacral region somatic dysfunction Seborrheic keratosis Strain of right Achilles tendon Warfarin anticoagulation Surgical History History of orthopedic surgery History of total knee arthroplasty Family History Father GI bleed Social History household members: spouse Smoking Status: Never smoker alcohol intake: current substance use type: does not use Assessment & Plan Time-Based Coding :: [TOTAL MINUTES] spent with patient and on the chart (including review of chart, obtaining history, exam, reviewing outside data, placing orders, documenting exam and treatment plan, and counseling patient) on [DATE]. Quality VTE Deep Vein Thrombosis/Pulmonary Embolism Present on Admission: No
--- NOTE | 2025-07-08 13:25 | P.PN_ITS ---
Subjective Subjective Date Patient Seen: 07/08/25 Interval history: 74 yo M s/p R cephalomedullary nail for pathologic intertrochanteric hip fracture POD # 2. He states his pain is well controlled. He ambulated with a walker today and yesterday. Currently no f/c/ns. Denies chest pain, shortness of breath. He does not have any stairs at his home. He has been working with PT for transfers and ambulating. VSS; afebrile RLE: proximal dressings with some blood present - no drainage/strike through. Distal dressing with some blood present. No drainage. Able to internally and externally rotate hip. SILT s/s/t/dp/sp Fires ta/gs/ehl/fhl DP 2+. Exam Vital Signs (past 8 hours): - 07/08/25 09:00 Temperature 99.0 F Pulse Rate 95 H Respiratory Rate 18 Blood Pressure 114/62 Pulse Oximetry 98 Oxygen Flow Rate 0 Oxygen Delivery Method Room Air Oxygen Flow Rate 0 Objective Labs 07/08/25 05:15 07/08/25 05:15 Labs: Laboratory Results - last 24 hr 07/08/25 05:15 WBC 4.9 RBC 2.45 L Hgb 7.2 L Hct 21.3 L MCV 87.2 MCH 29.5 MCHC 33.9 RDW 19.0 H Plt Count 39 L Neut % (Auto) 78.4 H Lymph % (Auto) 13.7 L [place] % (Auto) 5.9 Eos % (Auto) 1.5 L Baso % (Auto) 0.5 Neut # (Auto) 3900 Lymph # (Auto) 700 L [place] # (Auto) 300 Eos # (Auto) 100 Baso # (Auto) 0 Platelet Estimate Decreased on smear RBC Morphology See below Anisocytosis 1+ H Sodium 130 L Potassium 3.6 Chloride 105 Carbon Dioxide 25 BUN 21 H Creatinine 0.59 L Estimated GFR > 60 BUN/Creatinine Ratio 35.6 H Glucose 83 Calcium 7.6 L PFSH Medical History Back pain Back stiffness Cellulitis Cellulitis of right leg Cervical somatic dysfunction Factor V Leiden History of venous thromboembolism Lab test negative for COVID-19 virus Leg wound, left Neck pain Neoplasm of prostate as incidental histologic finding in more than 5% of resected tissue (T1b) Pelvic somatic dysfunction Physician orders for life-sustaining treatment (POLST) form indicates patient wish for [id number] status Prostate cancer metastatic to bone Sacral region somatic dysfunction Seborrheic keratosis Strain of right Achilles tendon Warfarin anticoagulation Surgical History History of orthopedic surgery History of total knee arthroplasty Family History Father GI bleed Social History household members: spouse Smoking Status: Never smoker alcohol intake: current substance use type: does not use Assessment & Plan Post-op Postoperative Procedures: Procedures Operation Date: 07/06/25 09:00 Actual Procedure Side Surgeon p Intramedullary Nailing Femur Right Tori De León DO Postoperative day: 2 Postoperative status: doing well Postoperative plan narrative: - continue WBAT with a walker. - Pain control per hospitalist. - He will be able to d/c home if he is able to ambulate with a walker and pain is controlled with oral meds - Lovenox for DVT prophylaxis. Time Spent With Patient Time with patient: less than 15 minutes Quality VTE Deep Vein Thrombosis/Pulmonary Embolism Present on Admission: No
--- NOTE | 2025-07-08 13:45 | OT.IP.EVAL ---
Current Diagnoses Fracture of unspecified part of neck of right femur, initial encounter for closed fracture (07/05/25) Surgery Performed Operation Date: 07/06/25 09:00 Actual Procedures p Intramedullary Nailing Femur(Right) - Tori De León DO Past Medical History (Last Reviewed 07/05/25 @ 14:16 by Tori De León DO) Back pain Back stiffness Cellulitis Cellulitis of right leg Cervical somatic dysfunction Factor V Leiden History of venous thromboembolism Lab test negative for COVID-19 virus Leg wound, left Neck pain Neoplasm of prostate as incidental histologic finding in more than 5% of resected tissue (T1b) Pelvic somatic dysfunction Physician orders for life-sustaining treatment (POLST) form indicates patient wish for [id number] status Prostate cancer metastatic to bone Sacral region somatic dysfunction Seborrheic keratosis Strain of right Achilles tendon Warfarin anticoagulation Surgical History (Last Reviewed 07/05/25 @ 14:16 by Tori De León DO) History of orthopedic surgery History of total knee arthroplasty Occupational Therapy Inpatient Evaluation/Re-Eval M1 PT/OT-IP Prior Functional Status Start: 07/07/25 10:13 Freq: NEEDED Status: Active Protocol: Document 07/08/25 12:48 NINA (Rec: 07/08/25 12:53 NINA Desktop) Medical Review Prior Functional Status Medical History Yes Reviewed Diet/Fluid Regular Consistency Communication Pt able to make his needs known. Mobility and Gait Ambulates without AD. Could walk several miles. Had a transport chair Activities of Daily Indep ADLs Living and IADL's Social History Household Members spouse Living Arrangements House Number of Stairs To none Enter/Railing? Home Environment High Toilet,Walk in Shower,Tub/Shower Doors Home Equipment Shower Seat with Backrest,Grab Bars In Shower Employment Status Retired Additional Social Hospice has provided everything as assistive devices, History Comment but he doesn't use them. Adjustable bed M2 OT-IP Current Condition Start: 07/08/25 12:47 Freq: Status: Active Protocol: Document 07/08/25 12:48 NINA (Rec: 07/08/25 12:53 NINA Desktop) Occupational Therapy Current Condition Current Condition Evaluation Date 07/08/25 Treatment Diagnosis s/p R ORIF Diagnosis Onset Date 07/05/25 Weight Bearing Status Weight Bearing Weight Bear as Tolerated Status M3 OT- IP Subjective and Pain Start: 07/08/25 12:47 Freq: Status: Active Protocol: Document 07/08/25 12:48 NINA (Rec: 07/08/25 [facility]- Subjective Occupational Therapy Visit Type Type Initial Evaluation Visit Start Time 11:35 Visit Stop Time 11:51 Notes Pt was reclined in bed on entrance of OT. Pt agreeable to OT eval. Occupational Therapy Visit Comments Patient Comments I am feeling much better. I was in a lot of pain this morning. Patient/Caregiver To go home Goals OT Pain Assessment Pain When Pain Assessed After Treatment Pain Present Pain Present Denied Pain M4 OT- IP ADL's Start: 07/08/25 12:47 Freq: Status: Active Protocol: Document 07/08/25 12:48 NINA (Rec: 07/08/25 12:53 [facility] OT [id number] General Evaluation Self-Feeding Ability Independent OT ADL-Grooming General Evaluation Areas Needing Retrieving/Set-up of Grooming Items Assistance Comments OT Grooming Comments Pt performed hair grooming while sitting EOB on set up. OT ADL-Oral Care Comments Oral Care Comments not observed. Pt declined due to eval being just prior to lunch. OT ADL-Dressing General Eval Lower Body Dressing Total Assistance Ability Areas Needing Socks Assistance Comments OT Dressing Comments Pt requires total A for socks due to pain. OT discussed AE for LB dressing. Pt is willing to learn how to use for continued I with BADLs. OT ADL-Toileting Comments OT Toileting pt declined need, not observed. Comments OT ADL-Bathing Comments OT Bathing Comments pt declined, pt states he would prefer to wait until he d/c home M5 OT- IP IADL's Start: 07/08/25 12:47 Freq: Status: Active Protocol: Document 07/08/25 12:48 NINA (Rec: 07/08/25 12:53 [facility]) OT-Instrumental Activities of Daily Living Deficits IADL Deficits No Deficits Identified Home Safety Awareness Awareness of Need Good Awareness for Assistance at Home Ability to Problem Able to Problem Solve Solve Emergency Situations Medication Management Medication No Deficits Identified Management Money Management Money Management No Deficits Identified Meal Preparation Meal Preparation Caregiver Provides Assist Underwater Hunter Underwater Hunter Caregiver Provides Assist Driving Driving Caregiver Provides Assist Driving Comments Pt was I, but pts spouse can assist M6 OT- IP Functional Cognition Start: 07/08/25 12:47 Freq: Status: Active Protocol: Document 07/08/25 12:48 NINA (Rec: 07/08/25 12:53 [facility]) Cognitive Factors Limiting Selfcare Function Cognitive Ability Level of Alertness Alert Patient Orientation Name,Age,Birthday,Month,Date,Year,Day of Week,Place, Situation Attention Span Capable of Focused Attention,Capable of Sustained Ability Attention Ability to Follow Able to Follow One Step Commands,Able to Follow Multi- Commands Step Commands Memory Description No Deficits Noted Safety Awareness No Deficits Noted Problem Solving No deficits Noted Ability Executive Function No Deficits Noted Ability Abstract Thinking No Deficits Noted Ability OT- Vision and Hearing OT- Hearing Assessment OT- Hearing WFL Assessment OT- Vision Assessment Visual Acuity Glasses All The Time M7 OT- IP Mobility and Balance Start: 07/08/25 12:47 Freq: Status: Active Protocol: Document 07/08/25 12:48 NINA (Rec: 07/08/25 12:53 [facility] OT- Bed Mobility Assessment Supine to Sit Supine to Sit Assist Moderate Assistance,1 Person Assistance,Head of Bed Elevated,Bedrails Scooting Scooting to Edge of Standby Assistance,Bedrails Bed OT-Transfer Assessment Sit to and From Stand Sit to and from Minimal Assistance,Moderate Assistance,1 Person Stand Assistance,Use of Upper Extremities Transfers Transfer Ability Contact Guard Assistance,1 Person Assistance,Use of Upper Extremities Technique Transfer Destination Chair Transfer Technique Stand Step Pivot Devices Transfer Assistive Gait Belt,Front Wheeled Walker Devices Comments Mobility Comments Pt needs significant assistance with R LE. Pt reports that it feels heavy and like it has no muscles. He states he has less use of his R LE than he did two days ago. Pt needs vcs to reach for bed rail during bed mobility. Pt requires increased time for t/f and vcs for hand placement for safety. OT- Balance Assessment Sitting Balance and Reactions Static Sitting Good Balance Ability Dynamic Sitting Good Balance Ability Standing Balance and Reactions Static Standing Good Balance Ability Dynamic Standing Fair Balance Ability M8 OT- IP Objective Assessments Start: 07/08/25 12:47 Freq: Status: Active Protocol: Document 07/08/25 12:48 NINA (Rec: 07/08/25 12:53 [facility] OT Gross Range of Motion Upper Extremity Range of Motion Assessment Within Functional Limits OT Strength Upper Extremity Strength Assessment Within Functional Limits Shoulder 5 Elbow 4- Hand 4 Hand Guinea Pig Breeder Strength Hand Dominance Right OT-Muscle Tone Assessment Muscle Tone WNL Yes OT Sensation Assessment Edema Edema Absent M9 OT- IP Assessment and Plan Start: 07/08/25 12:47 Freq: Status: Active Protocol: Document 07/08/25 12:48 NINA (Rec: 07/08/25 12:53 [facility]) OT Summary Assessment and Plan Potential Rehabilitation Excellent Potential Analytic Complexity Low at Evaluation Summary OT Impairments Pain,Strength,Balance,Functional Mobility,Dressing, Toileting,Bathing,Toilet Transfers,Shower Transfers, Activity Tolerance Assessment Summary Pt is a 74 yo M who has a long history with prostate cancer and has been under hospice care. Pt was ambulating in his home when he reports losing consciousness and falling resulting in R hip fx. Pt is s/p R ORIF and is WBAT. Pt lives with his spouse in a single level home with no steps. Pt reports he was I with amb for several miles a day and with all BADL/IADL . Pt currently requires total A for sock, set up for grooming, and MIN-MOD A for functional t/fs. Pt was unable to tolerate amb to sink side during today's eval and would benefit towards more standing ADL progression. Pt presents with muscle weakness and activity intolerance in addition to BADL and functional mobility limitations. Skilled OT services are appropriate to address these deficits. Pt would benefit from LB AE education for increased I. Skilled OT services are appropriate to address these deficits. Pt is appropriate to d/c home when medical stable. OT recommends HH on d/c. Pt was left up in chair with all needs met and in reach. Cont per POC. Goals Grooming Goal Independent Dressing Goal Independent,Long Handled Shoe Horn,Manager Of Corporate,Sock Aid Toileting Goal Independent Bathing Goal Independent Toilet Transfer Goal Independent Shower Transfer Goal Independent Days to Meet Goals 15 Frequency of Treatment Other frequency 5x/wk Treatment Plan OT Treatment Plan ADL Training,Functional Mobility,Patient/Family Education,Discharge Planning Discharge Recommendations OT Discharge Home with Assistance,Home Health Recommendations Transportation Needs Private Vehicle,Wheelchair/Cabulance at Discharge
--- NOTE | 2025-07-08 13:57 | CM.DPC ---
DCP Discharge Home with Hospice Per Ortho, pt tolerated surgery well and cleared for ongoing PT and ambulating as tolerated. Per MD, pt having more pain with ambulation and if pt better controlled and can work with PT/OT then could discharge home with Hospice. Per PT/OT, pt was able to stand and transfer to chair today and pain better managed. Recommending home via w/c van as pt unable to ambulate very far. LEIDY spoke to HARMAN Peace and updated and she will hold a spot for pt tomorrow 07/09 at [id number] for RN start of care since pt was not able to discharge this morning. SW met bedside with pt and explained role and updated on above and pt sitting in bedside chair and confirms no significant pain and preference is to be home. Pt confirms that he has a transfer w/c at home that they use that is smaller and gas and oil checker weight and he does not feel he can self transfer into their car at d/c and preference is private pay w/c van using their own w/c. Pt called spouse via speaker phone and she confirms she can bring pt's transfer w/c to the hospital now and their preference is home today with gallery assistant to open tomorrow morning. They feel they can manage well at home as they already have the DME from Hospice and medications at home and if new meds need to be filled today then preference is [facility] pharmacy. SW called [facility] and scheduled 1515 transport time today to home and quote was $131.23 and they will call spouse for payment prior to d/c and spouse aware and agreeable. Updated MD and RN and called [facility] and left msg with update and faxed d/c summary to Hospice to review. BIANCA Kwong
--- NOTE | 2025-07-08 14:03 | P.DS_ITS ---
History of Present Illness History of Present Illness Date Patient Seen: 07/08/25 Chief complaint: R hip pain Narrative: This is a 74-year-old male with a history of metastatic prostate cancer currently on hospice, factor 5 Leiden hypercoagulability with previous PE/DVT and right leg cellulitis who presents to the ED after falling on the floor in his house today. He lost his balance, somewhat unusual for him, landing on the right hip. He has an oblique intertrochanteric/subtrochanteric fracture of the right hip. His PPS is quite high so he has made the decision to proceed with ORIF and to resume hospice after this hospitalization. He is known to have multiple bone metastasis. He has been on warfarin for many years after experiencing postoperative PE and DVT. The INR today is 1.9. This will be reversed with vitamin K. He understands that the risk of preop/intraop/postop recurrent PE is very high, that we will resume anticoagulation as soon as is considered safe from intraoperative/postoperative bleeding and that there could be a fatal outcome. Both he and his have considered that and feel that the risk is outweighed by his desire to maintain mobility despite being on hospice. Discharge Providers Provider Date of admission: 07/05/25 13:56 Discharge Date: 07/08/25 Primary care physician: Viky Alcala DO Consults: 07/05/25 13:08 Consult to Orthopedic Surgery Stat Comment: Consulting Provider: Tori De León Reason for consultation: r hip fracture Has provider been notified: Yes 07/05/25 13:26 Consult to Occupational Therapy Evaluate & Treat Comment: Physician Instructions: Evaluate and treat Consult to Physical Therapy Evaluate & Treat Comment: Physician Instructions: Evaluate and Treat 07/06/25 13:21 Consult to Physical Therapy Evaluate & Treat Comment: Physician Instructions: Evaluate and Treat 07/08/25 11:38 Consult to Pharmacy Routine Comment: none Discharge provider: Nikia Watkins MD Summary Hospital Course Hospital Course: 07/06/2025: This morning's hemoglobin had dropped from 8.2 down to 6.3 so a blood transfusion was started before surgery. He received 1 or 2 more units of packed red blood cells during surgery. The platelets remain stable at 55. The INR was 1.5 so additional vitamin K was given this morning and very little bleeding was noted during the surgery. 07/07/2025: The hemoglobin has dropped from 7.9 down to 6.8 so another unit of packed red blood cells will be given today. The sodium was 130 yesterday. There is minimal blood visible staining the lower right leg dressing. He has no new complaints. 07/08/2025: The hemoglobin is up to 7.2, from 6.8, after 1 unit of blood was given yesterday. The right upper thigh appears somewhat more swollen and he says he is having severe right hip pain. It does not look like compartment syndrome. We will increase his oxycodone dose to 10 mg and give him Percocet routinely every 6 hours. The pain worsened in the last 12 hours or so. Before trying physical therapy, when he was just lying in bed yesterday, he seemed to be more comfortable but with his efforts to regain mobility the pain has flared. He will need to stay another day to get that under better control before returning home on hospice early tomorrow morning. He had resumed Lovenox yesterday so that will be held for the next day or so. Right Hip Fracture * IM nail ORIF procedure 07/[address] De León * Reversed warfarin effect with vitamin K, cleared by Orthopedics to begin Lovenox on postop day 1. 07/07. * Lovenox placed on hold again on 07/08 after noting increased swelling at the right upper thigh, hemoglobin rising only to 7.2 with 1 unit of blood and increased pain complaint since resuming it yesterday. * 07/08 add Percocet 5/325 q.6 routinely and increase oxycodone to 10 mg q.3 hours as needed. Factor 5 Leiden Coagulopathy * He has been on warfarin for many years after experiencing postoperative PE and DVT. * He understands that the risk of preop/intraop/postop recurrent PE is very high, that we will resume anticoagulation as soon as is considered safe from intraoperative/postoperative bleeding and that there could be a fatal outcome. Both he and his have considered that and feel that the risk is outweighed by his desire to maintain mobility despite being on hospice. * Lovenox placed on hold again on 07/08 after noting increased swelling at the right upper thigh, hemoglobin rising only to 7.2 with 1 unit of blood and increased pain complaint since resuming it yesterday. Metastatic prostate cancer * Currently on hospice, which he will resume at home Normocytic anemia * Hemoglobin 8.4, then down to 6.3, likely chronic related to cancer * IV iron infusion 07/05. Perioperative 2 or 3 units of pRBC given on 07/06. * 1 unit PRBC given on 07/07, hemoglobin was 6.8, rising to 7.2 on 07/08 Thrombocytopenia * Platelets 59, likely chronic related to cancer * Repeat platelets preop 07/08 at 39 and consider transfusion if below 20 range. DVT prevention * Resumed Lovenox on 07/07 per ortho. Placed back on hold 07/08, see above. To summarize: The patient was initially quite disabled by pain this morning but with mobilization and increased pain medicines he has returned to a tolerable/controlled state and wishes to discharge this afternoon. Hospice will resume care for him tomorrow morning and he will go home on a Percocet/oxycodone regimen. PT and OT both worked with him, noting that he is able to transfer well and will be able to use a wheelchair at home. Because of the question of additional bleeding since Lovenox was started we will instead slowly resume the warfarin as usual dosing at home without bridging. Status at Discharge Cognitive/behavioral status at discharge: at baseline, confused Functional status at discharge: uses cane/walker Overall status at discharge: patient is progressing back to baseline Time Spent with Patient Time spent: Less than 30 minutes Exam Vital Signs (past 8 hours): - 07/08/25 09:00 Temperature 99.0 F Pulse Rate 95 H Respiratory Rate 18 Blood Pressure 114/62 Pulse Oximetry 98 Oxygen Flow Rate 0 Oxygen Delivery Method Room Air Oxygen Flow Rate 0 Narrative Exam Narrative: Alert and oriented x3. No apparent distress. Very cachectic. Sclerae are pink and nonicteric. Heart is regular rate and rhythm without murmur. Lungs are clear to auscultation bilaterally. Abdomen is very scaphoid Extremities have no ankle edema. Intact dressings are noted on the upper lateral right hip and lower right thigh just above the knee. Contained bleeding visible under both dressings. There is slightly more swelling at the right upper thigh but this does not appear to be infected, compartment syndrome or more than the expected postoperative hematoma. Skin has no rash or jaundice. Objective Labs 07/08/25 05:15 07/08/25 05:15 Labs: Laboratory Results - last 24 hr 07/08/25 05:15 WBC 4.9 RBC 2.45 L Hgb 7.2 L Hct 21.3 L MCV 87.2 MCH 29.5 MCHC 33.9 RDW 19.0 H Plt Count 39 L Neut % (Auto) 78.4 H Lymph % (Auto) 13.7 L Fleming % (Auto) 5.9 Eos % (Auto) 1.5 L Baso % (Auto) 0.5 Neut # (Auto) 3900 Lymph # (Auto) 700 L Fleming # (Auto) 300 Eos # (Auto) 100 Baso # (Auto) 0 Platelet Estimate Decreased on smear RBC Morphology See below Anisocytosis 1+ H Sodium 130 L Potassium 3.6 Chloride 105 Carbon Dioxide 25 BUN 21 H Creatinine 0.59 L Estimated GFR > 60 BUN/Creatinine Ratio 35.6 H Glucose 83 Calcium 7.6 L PFSH Medical History Back pain Back stiffness Cellulitis Cellulitis of right leg Cervical somatic dysfunction Factor V Leiden History of venous thromboembolism Lab test negative for COVID-19 virus Leg wound, left Neck pain Neoplasm of prostate as incidental histologic finding in more than 5% of resected tissue (T1b) Pelvic somatic dysfunction Physician orders for life-sustaining treatment (POLST) form indicates patient wish for [id number] status Prostate cancer metastatic to bone Sacral region somatic dysfunction Seborrheic keratosis Strain of right Achilles tendon Warfarin anticoagulation Surgical History History of orthopedic surgery History of total knee arthroplasty Family History Father GI bleed Social History household members: spouse Smoking Status: Never smoker alcohol intake: current substance use type: does not use Discharge Plan Discharge Plan Patient Disposition: Hospice - Home Provider Discharge Comment: He will be followed by Hospice when he returns home. Discharge orders & Medications Prescriptions: New docusate sodium 100 mg Capsule 100 mg PO BID Qty: 30 0RF ondansetron 4 mg Tablet,Disintegrating 4 mg PO Q4HR PRN (Reason: Nausea And Vomiting) Qty: 10 0RF oxycodone 10 mg tablet 10 mg PO Q4H PRN (Reason: pain) Qty: 30 0RF oxycodone-acetaminophen [Percocet] 5-325 mg tablet 1 tab PO Q6H Qty: 20 0RF Continued warfarin 5 mg tablet See Rx Instructions PO DAILY Qty: 90 3RF Protocol: Dose Management Condition: Tuesday (Week One) Dose/Route: 2.5 mg Instruction: 0.5 x 5 mg tablets Condition: Tuesday Dose/Route: 2.5 mg Instruction: 0.5 x 5 mg tablets Condition: Tuesday Dose/Route: 5 mg Instruction: 1 x 5 mg tablet Condition: Tuesday Dose/Route: Hold Instruction: No doses Condition: Dose/Route: Hold Instruction: No doses Condition: Tuesday Dose/Route: 2.5 mg Instruction: 0.5 x 5 mg tablets Condition: Tuesday Dose/Route: 2.5 mg Instruction: 0.5 x 5 mg tablets Condition: Tuesday ( Two) Dose/Route: 2.5 mg Instruction: 0.5 x 5 mg tablets Condition: Tuesday Dose/Route: 2.5 mg Instruction: 0.5 x 5 mg tablets Condition: Tuesday Dose/Route: 5 mg Instruction: 1 x 5 mg tablet Condition: Tuesday Dose/Route: 2.5 mg Instruction: 0.5 x 5 mg tablets Condition: Dose/Route: 5 mg Instruction: 1 x 5 mg tablet Condition: Tuesday Dose/Route: 2.5 mg Instruction: 0.5 x 5 mg tablets Condition: Tuesday Dose/Route: 2.5 mg Instruction: 0.5 x 5 mg tablets Protocol Text: Adjustment Start Date: Tuesday06/12/25 INR Value: 4.1 INR Date: 06/12/25 Recheck Date: 06/19/25 Rx Instructions: Take 1 tablets (5mg) 3 days a week then Take 5mg plus 2mg tab total (7mg) 4 days a week or as directed. warfarin 2 mg tablet See Rx Instructions PO DAILY Qty: 90 3RF Protocol: Dose Management Condition: Tuesday (Week One) Dose/Route: 2.5 mg Instruction: 0.5 x 5 mg tablets Condition: Tuesday Dose/Route: 2.5 mg Instruction: 0.5 x 5 mg tablets Condition: Tuesday Dose/Route: 5 mg Instruction: 1 x 5 mg tablet Condition: Tuesday Dose/Route: Hold Instruction: No doses Condition: Dose/Route: Hold Instruction: No doses Condition: Tuesday Dose/Route: 2.5 mg Instruction: 0.5 x 5 mg tablets Condition: Tuesday Dose/Route: 2.5 mg Instruction: 0.5 x 5 mg tablets Condition: Tuesday (Week Two) Dose/Route: 2.5 mg Instruction: 0.5 x 5 mg tablets Condition: Tuesday Dose/Route: 2.5 mg Instruction: 0.5 x 5 mg tablets Condition: Tuesday Dose/Route: 5 mg Instruction: 1 x 5 mg tablet Condition: Tuesday Dose/Route: 2.5 mg Instruction: 0.5 x 5 mg tablets Condition: Dose/Route: 5 mg Instruction: 1 x 5 mg tablet Condition: Tuesday Dose/Route: 2.5 mg Instruction: 0.5 x 5 mg tablets Condition: Tuesday Dose/Route: 2.5 mg Instruction: 0.5 x 5 mg tablets Protocol Text: Adjustment Start Date: Tuesday06/12/25 INR Value: 4.1 INR Date: 06/12/25 Recheck Date: 06/19/25 Rx Instructions: Take 1 (2mg) tab with 1 (5mg) tab 4 days a week or as directed orally daily; temazepam 15 mg capsule 15 mg PO BEDTIME PRN (Reason: sleep) Qty: 30 0RF epinephrine [EpiPen] 0.3 mg/0.3 mL Auto-Injector 0.3 mg IM PRN PRN (Reason: Allergic Reaction) morphine concentrate 100 mg/5 mL (20 mg/mL) solution 5 mg PO Q1H PRN (Reason: pain) Patient Comments: Initial dose 5 mg (0.25 ml) EVERY 1 HOUR NEEDED FOR PAIN/DYSPNEA, registered nurse maternity may instruct to repeat/titrate by 5 mg (0.25 mL) EVERY 30min to maximum of 20 mg (1 mL) EVERY HOUR NEEDED Discontinued oxycodone 5 mg tablet 5 mg PO PRN Follow up/Referrals: Viky Alcala DO [Primary Care Provider, Family Practice] Diet/Activity/Treatments Diet: Diet as Tolerated Visit Report/Discharge Packet Stand Alone Forms: Patient Portal/API, Stroke Signs & Symptoms Discharge Data Primary Care Provider: Alcala,Viky Quality VTE Deep Vein Thrombosis/Pulmonary Embolism Present on Admission: No
--- NOTE | 2025-07-08 15:15 | PC.NURSE ---
Pt is dressed and ready for discharge home with Spouse via [facility]. IV 's have been removed. Pt was assisted in to his personal w/c and taken out with Spouse and all belongings. Discharge instructions were reviewed, stroke education, encouraged Pt to get up slowly from bed or chair and follow up with hospice at home. Quilt was given to Pt from [facility]. There were no further questions and Pt and Spouse stated they appreciated their good care.
== END 2025-07-08 15:18 | disposition hospice, home (50) | DRG 481 ==
LOC: ED 13:37 → AC 13:57
PROVIDERS: Nurse Anesthetist, Certified Registered; Orthopaedic Surgery; Admitting Provider Family Medicine; Emergency Provider Emergency Medicine; PCP Family Medicine; Referring Provider Emergency Medicine; Visit Provider Family Medicine
PROC: 0QS606Z Reposition Right Upper Femur with Intramedullary Internal Fixation Device, Open Approach (ICD-10-PCS; CPT 27245; principal; 2025-07-06 09:00)
DX: M84.551A Pathological fracture in neoplastic disease, right femur, initial encounter for fracture (principal); C79.51 Secondary malignant neoplasm of bone; D68.51 Activated protein C resistance; C61 Malignant neoplasm of prostate; D63.0 Anemia in neoplastic disease; D69.59 Other secondary thrombocytopenia; Z86.718 Personal history of other venous thrombosis and embolism; Z86.711 Personal history of pulmonary embolism; Z79.01 Long term (current) use of anticoagulants
CPT/HCPCS: 36415; 36430; 73502; 73552; 76000; 80048; 85014; 85018; 85025; 85610; 86850; 86900; 86901; 97110; 97161; 97165; 97530; 99283; 99284; P9016; C1713; J0131; J0690; J1171; J1650; J2916; J3410; J3430